=== PATIENT | female | born 1955 | race Caucasian/White ===

== ENCOUNTER 2020-05-10 13:04 | Outpatient (CLI) | payer OTHER, SELFPAY ==
--- NOTE | ~2020-05-10 | DEXA_ITS ---
Bone Density Report Name: Lea López Age: 65 Sex: Female Ethnicity: White Date of : 1955 Indication: postmenopausal; prior fracture; Referring Provider: Juve, Anil Maldonado Study: Bone densitometry was performed. Exam Date: May 10, 2020 Accession number: [id number] Bone Density: Region BMD T-score Z-score Classification AP Spine (L1-L4) 0.845 -1.8 -0.2 Osteopenia Femoral Neck (Left) 0.629 -2.0 -0.6 Osteopenia Total Hip (Left) 0.707 -1.9 -0.8 Osteopenia Total Hip Bilateral Avg 0.715 -1.9 -0.8 Osteopenia Femoral Neck (Right) 0.651 -1.8 -0.4 Osteopenia Total Hip (Right) 0.721 -1.8 -0.7 Osteopenia World Health Organization criteria for BMD impression classify patients as: Normal (T-score at or above -1.0), Osteopenia (T-score between -1.0 and -2.5), or Osteoporosis (T-score at or below -2.5). 10-year Fracture Risk(1): Major Osteoporotic Fracture 16% Hip Fracture 2.2% Reported Risk Factors: [place] (), Neck BMD=0.629, BMI=22.4, previous fracture (1) FRAX(R) Version 3.08. Fracture probability calculated for an untreated patient. Fracture probability may be lower if the patient has received treatment. Clinical Information Provided by Patient: Has had a low trauma fracture Has used the following medications: Vitamin D, Calcium Patient maximum height was 67 Menopause Age: 50 Drinks caffeinated beverages Onset of menses at age 12 Number of children 2 Impression: The patient has low bone mass, based on the Left Femoral Neck T-score. The patient has an estimated ten-year risk of hip fracture of 2.2% and an estimated ten-year risk of major fracture of 16%, based on the WHO FRAX algorithm. The patient has risk factors, including: previous fracture. Discussion: BONE DENSITY IS LOW AT ONE OR MORE SKELETAL SITES. This patient's lowest T-score is low at one or more skeletal sites. It meets the World Health Organization's (WHO) criteria for ?low bone mass? (T-score between -1.0 and -2.5). The patient's 10-year risk of fracture as calculated by FRAX is less than the threshold where pharmacological therapy is recommended by the National Osteoporosis Foundation (NOF). However, all treatment decisions require clinical judgment and consideration of individual patient factors, including patient preferences, comorbidities, previous drug use, risk factors not captured in the FRAX model (e.g., frailty, falls, vitamin D deficiency, increased bone turnover, interval significant decline in bone density) and possible under or overestimation of fracture risk by FRAX. The patient should follow a healthful lifestyle (good nutrition with adequate calcium and vitamin D, and appropriate weight-bearing exercise). Follow-Up: Consider repeating this study in 2 to 3 years to reassess this patient's status, or sooner if the
== END 2020-05-10 13:05 | disposition home or self-care (01) ==
LOC: ANHIMG 13:07
PROVIDERS: PCP Internal Medicine; Visit Provider Nurse Practitioner Women's Health
DX: Z78.0 Asymptomatic menopausal state (principal); M85.88 Other specified disorders of bone density and structure, other site; M85.852 Other specified disorders of bone density and structure, left thigh; M85.851 Other specified disorders of bone density and structure, right thigh
CPT/HCPCS: 77080

== ENCOUNTER 2020-11-01 08:00 | Outpatient (RCR) | payer OTHER, SELFPAY ==
--- NOTE | 2020-09-21 17:26 | PTOPEVAL ---
INITIAL PHYSICAL THERAPY EVALUATION and PLAN OF CARE Thank you for referring Lea López to [facility].? Lea is scheduled to be seen for physical therapy? 1-2x/week for 6 weeks. Please review, sign, date and return this plan of care LEAH. I agree with and certify that the following plan of care is medically necessary. Referring Physician Date Admitting Provider: Attending Provider: Lonnie Vazquez MD Referring Provider: *PT Outpatient Evaluation Start: 09/21/20 14:08 Freq: Status: Active Protocol: Document 09/21/20 14:05 NARGIS (Rec: 09/21/20 15:24 NARGIS [email or web address]) Therapy Assessment Status Assessment Status Assessment Status Evaluation Outpatient Past Medical History Past Medical History Source of Past Medical History Patient Neurological History Hx Neurological Disorders No Significant History Cardiovascular History Hx Cardiac Disorders No Significant History Respiratory History Hx Respiratory Disorders No Significant History Gastrointestinal History Hx Gastrointestinal Disorders No Significant History Genitourinary History Hx Genitourinary Disorders No Significant History Musculoskeletal History Hx Arthritis Yes: generalized Hx Orthopedic Surgery Yes: L patellar fracture - ORIF Hx Other Musculoskeletal Disorders Yes: heel spurs, sees chiropractor Endocrine History Hx Endocrine Disorders No Significant History Evaluation Information Problem Diagnosis R posterior tibialis dysfunction Onset 07/10/2020 Subjective Information Went on a trip to [facility] [place] Query Text:As Reported By Patient/ [place] - put sandals on - Family increased pain that evening - decreased ability to put weight on R foot. When saw PCP - received injection into buttock - initially felt better. Initially thought pain was due to gout - approached care that way - testing, diet, etc - then found out different diagnosis. Still watching diet. Initial wt bearing in mornings - painful - then will have a period of decreased discomfort - but pain worsens as day goes on. Wearing brace for R foot/ankle Diagnostic Tests X-Rays For This Problem Yes Prior Level of Function Activity Level (Last 3 Months) Occupation
--- NOTE | 2020-11-01 12:25 | PTOPEVAL ---
PHYSICAL THERAPY DISCHARGE SUMMARY Thank you for referring Lea López to [facility] [place].? Lea was seen x 7 visits. ROM, strength, and functional goals were met, pain levels at times are still elevated. Her HEP was reviewed today and she is to continue with it as well as use of ice and elevation to R posterior tibialis tendon when increase in inflammation and pain are present. She is ready for d/c from PT to HEP. I agree with Lea's discharge. Referring Physician Date Admitting Provider: Attending Provider: Lonnie Vazquez MD Referring Provider: Therapy Assessment Status Assessment Status Assessment Status Discharge Evaluation Information Problem Diagnosis R posterior tibialis dysfunction Subjective Information Lea has received orthotics - Query Text:As Reported By Patient/ now able to tolerate orthotics Family most of the day now. Having some difficulty finding different shoes to accommodate the orthotics. Doing well with HEP and using ice, elevation. Did yard work yesterday - good 3 hours - some soreness last evening - did use ice, elevation and ibuprofen. Pain Assessment Timing of Pain Assessment Timing of Pain Assessment Assessment Pain Scale Pain Scale Used Numeric (1 - 10) Self Report Pain Assessment Right Ankle(s) Reported Pain Level 2 Pain Description Burning,Tingling Lowest Pain Intensity 0 Greatest Pain Intensity 8 Pain Score Pain Score 2: Self Report Interventions Used Interventions Used By Clinicians Exercise Lower Extremity Range of Motion Ankle/Foot Range of Motion Right Ankle Dorsiflexion With Knee Extension 10 Range of Motion - Active Ankle Dorsiflexion With Knee Flexed 15 Range of Motion - Active Ankle Plantarflexion Range of Motion - 52 Active Query Text: Ankle Eversion Range of Motion - Active 30 Ankle Inversion Range of Motion - Active 40 Lower Extremity Muscle Strength Testing Ankle Strength Right Ankle Plantarflexion Strength 4+ Good + Toe Strength Comments anterior tibialis 5 posterior tibialis 5 peroneals - longus 5 brevis 5 PT Clinical Summary Clinical Summary Protocol: PTEVCODE PT Clinical Summary Foot and Ankle Ability Measure - 85% Lea has made ROM, strength, and functional gains with R foot/ankle complex. Pain
== END 2020-11-02 15:55 | disposition home or self-care (01) ==
LOC: ANHHIPT 08:00
PROVIDERS: PCP Internal Medicine; Visit Provider Orthopaedic Surgery
DX: M76.821 Posterior tibial tendinitis, right leg (principal)
CPT/HCPCS: 97035; 97110; 97140; 97161

== ENCOUNTER 2022-01-31 08:07 | Outpatient (CLI) | payer MEDICARE, OTHER, SELFPAY ==
--- NOTE | 2022-02-26 14:30 | WPDSLEEPSTUD ---
Sleep Study Date of Study: 01/31/22 Ordering Provider: Malissa Freedman DO Interpreting Physician: Malissa Freedman DO Sleep Study Type: Polysomnogram Height: 1.7 m Weight: 63.503 kg Body Mass Index: 21.9 Neck Circumference (inches): 13 [place]: 7 Reason for Sleep Study Insomnia Sleep History The patient is a 67-year-old female with seasonal allergies and insomnia that had a sleep study ordered by her primary care physician for evaluation of insomnia. The patient is currently retired. She states that she is able to fall asleep but will wake up in the middle of the night to use the restroom and will be unable to fall back asleep. She has unrefreshing sleep. The patient denies awakening from sleep short of breath. She rarely awakens at night with heartburn, belching or cough. She rarely snores and is never loud enough that others complain. She frequently has trouble sleeping when she has a cold. She denies waking up gasping for air throughout the night. She denies having breathing problems at night observed by herself or others. She denies sweating excessively at night. She denies having heart palpitations or irregular heartbeats during the night. She occasionally falls asleep during the day but never while driving. She denies sleep paralysis, cataplexy and hypnagogic / hypnopompic hallucinations. She rarely has trouble at school or work due to sleepiness. She denies feeling afraid of going to sleep. She denies having nightmares. She rarely remembers her dreams. She occasionally has thoughts racing through her mind. She rarely feels sad or depressed. She occasionally has anxiety. She denies having muscular tension. She denies noticing parts of her body jerk. She denies kicking during the night. She denies having crawling and aching feelings in her legs as well as leg pain during the night. She frequently grinds her teeth during sleep and occasionally awakens with morning jaw pain. She is occasionally bothered by pain during the day but rarely awakened by pain during the night. She occasionally wakes up feeling stiff in the morning. She denies waking up with sore achy muscles. She occasionally wakes up with pain in the neck, spine and other joints. She goes to bed at 9:30 p.m. on both weekdays and weekends. It takes her 10 minutes to fall asleep. She wakes up 1-2 times throughout the night for unknown reasons. When she awakens, she will do is lay in bed. It could take her up to 2 hours to fall back asleep. She wakes up at 7:00 a.m. on both weekdays and weekends. She typically gets 6-7 hours of sleep per night. She will stay in bed for 10 minutes after waking up in the morning. She currently lives with her . She does not consume any caffeinated beverages within 2 hours of bedtime. She does not engage in physical exercise before bedtime. She will sometimes read before falling asleep. She will watch television before falling asleep. She will occasionally take a nap in the afternoon. She drinks 20 oz of caffeinated beverage per day. She will drink 1 alcoholic beverage per day. She denies tobacco and recreational drug use. [facility] Past Medical History Medical History Allergies Anxiety Arthritis History of patellar fracture History of wrist fracture Insomnia Pes planovalgus, acquired Posterior tibial tendinitis of right lower extremity Urinary frequency Wears glasses Surgical History Surgical History History of 2 Family History Family History Mother Family history of obesity Diabetes mellitus Hypertension Depression Heart disease Father Family history of malignant neoplasm Patient's father is Alcoholism Sibling Alcoholism Depression Other Arthritis Social History Soc
[2022-02-26 22:59] VITALS: BMI 21.9
== END 2022-02-01 06:25 | disposition home or self-care (01) ==
LOC: ANHCSM 08:08
PROVIDERS: PCP Internal Medicine; Visit Provider Family Medicine
DX: G47.00 Insomnia, unspecified (principal)
CPT/HCPCS: 95810

== ENCOUNTER 2022-08-12 08:10 | Outpatient (CLI) | payer MEDICARE, OTHER, SELFPAY ==
[2022-08-12 19:04] LABS: Alanine Aminotransferase 26 U/L (6-35); Albumin Level 4.3 g/dL (3.5-5.1); Alkaline Phosphatase 73 U/L (38-126); Anion Gap 3 mmol/L (8-16); Aspartate Amino Transferase 49 U/L (14-36); Bilirubin,Total 0.4 mg/dL (0.2-1.3); Blood Urea Nitrogen 23 mg/dL (7-17); Calcium 9.6 mg/dL (8.4-10.2); Carbon Dioxide 32 mmol/L (22-30); Chloride 101 mmol/L (98-107); Cholesterol 196 mg/dL (0-200); Estimated Glomerular Filt Rate > 60; Glucose 82 mg/dL (65-110); HDL Direct 80 mg/dL; Potassium 3.8 mmol/L (3.4-5.0); Sodium 136 mmol/L (137-145); Triglycerides 35 mg/dL (<150)
[2022-08-12 19:07] LABS: Basophils Absolute Auto 0.1 K/mm3 (0.0-0.1); Basophils Percent Auto 1.4 % (0.2-1.2); Eosinophils Absolute Auto 0.2 K/mm3 (0-0.3); Eosinophils Percent Auto 4.6 % (0-4.4); Hematocrit 41.7 % (37.0-47.0); Hemoglobin 13.6 g/dL (12.0-15.0); Lymphocytes Absolute Auto 1.79 K/mm3 (0.9-3.2); Lymphocytes Percent Auto 42.9 % (18.3-44.2); Mean Corpuscular HGB Conc 32.6 g/dl (32-36); Mean Corpuscular Hemoglobin 30.5 pg (26-34); Mean Corpuscular Volume 93.5 fl (80-100); Mean Platelet Volume 10.8 fl (7.4-10.4); Monocytes Absolute Auto 0.3 K/mm3 (0.1-0.6); Monocytes Percent Auto 7.7 % (2.6-8.5); Neutrophils Absolute Auto 1.8 K/mm3 (1.3-6.7); Neutrophils Percent Auto 43.4 % (45.5-73.1); Platelet Count Result 206 k/mm3 (150-375); Red Blood Count 4.46 M/mm3 (4.2-5.4); Red Cell Distribution Width 12.3 % (11.5-14.5); White Blood Count 4.2 K/mm3 (4.5-10.0)
[2022-08-12 19:13] LABS: Hemoglobin A1C 5.2 % (<5.7)
[2022-08-12 19:15] LABS: LDL Cholesterol Direct 75 mg/dL
[2022-08-12 19:32] LABS: Free T4 Free Thyroxine 1.17 ng/mL (0.78-2.19); Vitamin D 25 Hydroxy 75.7 ng/mL
== END 2022-08-12 08:11 | disposition home or self-care (01) ==
LOC: ANHGOSHLAB 08:14
PROVIDERS: PCP Internal Medicine; Visit Provider Family Medicine
DX: R53.83 Other fatigue (principal); E55.9 Vitamin D deficiency, unspecified; R73.9 Hyperglycemia, unspecified; E78.5 Hyperlipidemia, unspecified
CPT/HCPCS: 36415; 80053; 80061; 82306; 83036; 84439; 84443; 85025

== ENCOUNTER 2023-02-14 13:20 | Outpatient (CLI) | payer MEDICARE, OTHER, SELFPAY ==
--- NOTE | ~2023-02-14 | CT_ITS ---
CT of the Abdomen and Pelvis: Indication: Gastroenteritis and colitis Technique: 2.5 mm axial scans were obtained through the abdomen and pelvis following intravenous adm inistration of 100 cc of Omnipaque 350. Dose reduction technique was used on this scan by utilizing a utomated exposure control and iterative reconstruction technique. The dose-length product (DLP) was 3 90.98 mGy-cm. Findings: Scans through the lung bases are unremarkable. Several scattered subcentimeter hepatic cysts are present. The spleen, pancreas, gallbladder, adrenal s and kidneys are within normal limits. No evidence of aortic aneurysm. No lymphadenopathy. There is wall thickening with adjacent inflammatory change at the mid to distal sigmoid colon. No abs cess or free air evident. Images through the pelvis were performed. Urinary bladder unremarkable. No adnexal mass seen. No asci kristina. Impression: Acute diverticulitis of the mid to distal sigmoid colon versus other infectious/inflammatory colitis. No abscess or free air. Reviewed, dictated and finalized at [facility]. Impression: Acute diverticulitis of the mid to distal sigmoid colon versus other infectious /inflammatory colitis. No abscess or free air.
[2023-02-14 13:51] LABS: Estimated Glomerular Filt Rate > 60
== END 2023-02-14 13:21 | disposition home or self-care (01) ==
PROVIDERS: PCP Internal Medicine; Visit Provider Nurse Practitioner
DX: K57.32 Diverticulitis of large intestine without perforation or abscess without bleeding (principal)
CPT/HCPCS: 74177; Q9967

== ENCOUNTER 2023-04-01 00:18 | Day surgery (SDC) | payer MEDICARE, OTHER, SELFPAY ==
[2023-03-21 15:11] VITALS: BMI 22.8
[2023-04-01 06:23] VITALS: BP 124/92; PULSE 62; RESP 18; TEMP 36.1; O2SAT 98
[2023-04-01] MEDS: LACTATED RINGERS 1,000 ML 150 ML IV CONT (06:35)
--- NOTE | 2023-04-01 07:02 | WPDANESEPPF ---
Anes - Initial Pre Proc Eval Procedure: Operation Date: 04/01/23 07:30 Proposed Procedures p Esophagogastroduodenoscopy & Colonoscopy - Vicente Vidal MD Date/Time: 04/01/23 07:02 Surgeon: Vicente Vidal MD Pre Op Diagnosis: chronic cough, dysphonia, abdominal pain, Patient Data Age: 68 Gender: F Height: 1.7 m Weight: 61.5 kg Last Vital Signs Temp 36.1 C L 04/01/23 06:23 Pulse 62 04/01/23 06:23 Resp 18 04/01/23 06:23 BP 124/92 H 04/01/23 06:23 Pulse Ox 98 04/01/23 06:23 O2 Del Method Room Air 04/01/23 06:23 Allergies Allergy/AdvReac Type Severity Reaction Status Date / Time morphine Allergy Mild Swelling Verified 04/01/23 06:22 Home Medications Medication Instructions Recorded Confirmed Type multivitamin 1 tablet PO DAILY 09/18/20 03/21/23 History cetirizine 10 mg tablet (Zyrtec) 10 mg PO DAILY PRN Allergy Symptoms 10/10/21 03/21/23 History lactobacillus combination no.9 4 4,000 mmu cells PO DAILY 10/10/21 03/21/23 History billion cell capsule (Adult 50 Plus Probiotic) sodium,potassium,mag sulfates 17.5 See Rx Instructions PO .COMPLEX 02/10/23 Rx gram-3.13 gram-1.6 gram oral soln #354 mL (Suprep Bowel Prep Kit) cholecalciferol (vitamin D3) 25 25 mcg PO DAILY 03/21/23 03/21/23 History mcg (1,000 unit) chewable tablet (Vitamin D3) pyridoxine (vitamin B6) 100 mg 100 mg PO DAILY 03/21/23 03/21/23 History tablet Patient hx anesthesia problems: none Family hx anesthesia problems: none Results Review: All pre-operative results and documents have been reviewed as part of the pre-operative evaluation. [facility] Past Medical History Medical History Abdominal cramping Allergies Anxiety Arthritis Change in bowel habits Chronic cough Chronic diarrhea Dysphonia History of patellar fracture History of wrist fracture Insomnia Osteopenia Pes planovalgus, acquired Posterior tibial tendinitis of right lower extremity Urinary frequency Wears glasses Surgical History Surgical History History of 2 Family History Family History Mother Family history of obesity Diabetes mellitus Hypertension Depression Heart disease Father Family history of malignant neoplasm Patient's father is Alcoholism Sibling Alcoholism Depression Other Arthritis Social History Social History Smoking status: Never smoker Alcohol intake: current Drinks per week: 7 Substance use type: does not use Lack of Transportation: No Lack of Food: Never True Current Housing: I Have Housing Concerned About Future Housing: No Difficulty Paying Gas/Electric Bills: No Difficulty Paying for Meds: No Currently Unemployed: No Education: Trade/Vocational Certificate Difficulty w/ Childcare or Family Care: No Living arrangements: with family Spiritual care concerns: No Anes - Eval Final PreProcedure Day of Procedure 04/01/23 07:02 Patient weight: normal Heart: regular rate and rhythm Lungs: clear to auscultation Airway: Mallampati scale class II Neurological: alert and oriented Last oral intake: >/= 8 hours ASA classification: II Emergent: no Anesthetic plan: proceed Anesthesia type and monitoring: general GIVS and standard monitoring Results Review: All pre-operative results and documents have been reviewed as part of the pre-operative evaluation. Informed Consent: The patient's anesthetic plan and its attendant risks and benefits were discussed with the patient/family/POA. Questions were solicited and answers provided to the satisfaction of the patient/family/POA.
--- NOTE | 2023-04-01 07:43 | PM.HPGS ---
History of Present Illness History of Present Illness Consent: Risks, benefits, and alternatives have been discussed and questions answered. Patient agrees to proceed with procedure. Chief complaint: chronic cough, dysphonia, abdominal pain, Narrative: Lea López is a 68 year old female Presents for both colonoscopy and EGD. Patient reports she has had a mild intermittent chronic cough off and on for many years. Sometimes it will affect her voice. Patient denies any heartburn. She has no dysphagia. Patient is referred for an EGD. Additionally patient has had 2 episodes of cramping 1 early in year in 1 recently. She states it was rather intense. She has had intermittent diarrhea with loose stools. She denies any fever. She has had no bleeding. In the past had examinations that showed diverticular disease. A CT scan recently revealed inflammation in the mid sigmoid colon that was unable to differentiate mild colitis versus diverticulitis. Patient was given an empiric trial of antibiotics. She states she no longer has abdominal pain but these cramps come after many months intervals. Patient presents today for colonoscopy to evaluate more thoroughly. She denies any significant abdominal pain at present. Family history is noncontributory. Review of Systems Review of Systems: Review of systems noncontributory. [facility] Past Medical History Medical History Abdominal cramping Allergies Anxiety Arthritis Change in bowel habits Chronic cough Chronic diarrhea Dysphonia History of patellar fracture History of wrist fracture Insomnia Osteopenia Pes planovalgus, acquired Posterior tibial tendinitis of right lower extremity Urinary frequency Wears glasses Surgical History Surgical History History of 2 Family History Family History Mother Family history of obesity Diabetes mellitus Hypertension Depression Heart disease Father Family history of malignant neoplasm Patient's father is Alcoholism Sibling Alcoholism Depression Other Arthritis Social History Social History Smoking status: Never smoker Alcohol intake: current Drinks per week: 7 Substance use type: does not use Lack of Transportation: No Lack of Food: Never True Current Housing: I Have Housing Concerned About Future Housing: No Difficulty Paying Gas/Electric Bills: No Difficulty Paying for Meds: No Currently Unemployed: No Education: Trade/Vocational Certificate Difficulty w/ Childcare or Family Care: No Living arrangements: with family Spiritual care concerns: No Meds Home Medications and Allergies Home Medications Medication Instructions Recorded Confirmed Type multivitamin 1 tablet PO DAILY 09/18/20 03/21/23 History cetirizine 10 mg tablet (Zyrtec) 10 mg PO DAILY PRN Allergy Symptoms 10/10/21 03/21/23 History lactobacillus combination no.9 4 4,000 mmu cells PO DAILY 10/10/21 03/21/23 History billion cell capsule (Adult 50 Plus Probiotic) sodium,potassium,mag sulfates 17.5 See Rx Instructions PO .COMPLEX 02/10/23 Rx gram-3.13 gram-1.6 gram oral soln #354 mL (Suprep Bowel Prep Kit) cholecalciferol (vitamin D3) 25 25 mcg PO DAILY 03/21/23 03/21/23 History mcg (1,000 unit) chewable tablet (Vitamin D3) pyridoxine (vitamin B6) 100 mg 100 mg PO DAILY 03/21/23 03/21/23 History tablet Allergies Allergy/AdvReac Type Severity Reaction Status Date / Time morphine Allergy Mild Swelling Verified 04/01/23 06:22 Vital Signs Vital Signs - 24 hr 04/01/23 06:23 Temperature 97 F L Pulse Rate 62 Respiratory Rate 18 Blood Pressure 124/92 H Pulse Oximetry 98 Oxygen Delivery Room Air Exam Narrativ
--- NOTE | 2023-04-01 07:49 | SUR.OPER ---
EGD: Start 07:40, End 07:42 Colon: Start 07:49, End 08:10
[2023-04-01] MEDS: SIMETHICONE ORAL SUSPENSION 20 MG/0.3 ML 30 ML BOTTLE 0.6 ML IRRIGATION (07:57)
[2023-04-01 08:12] VITALS: BP 100/64; PULSE 62; RESP 17; O2SAT 98
[2023-04-01 08:22] VITALS: BP 113/77; PULSE 60; RESP 20; O2SAT 100
[2023-04-01 08:32] VITALS: BP 124/78; PULSE 50; RESP 22; O2SAT 97
== END 2023-04-01 08:47 | disposition home or self-care (01) ==
PROVIDERS: PCP Internal Medicine; Visit Provider Internal Medicine Gastroenterology
PROC: 0DJ08ZZ Inspection of Upper Intestinal Tract, Via Natural or Artificial Opening Endoscopic (ICD-10-PCS; CPT 43235; principal; 2023-04-01 07:30)
DX: Z12.11 Encounter for screening for malignant neoplasm of colon (principal); K64.8 Other hemorrhoids; K57.30 Diverticulosis of large intestine without perforation or abscess without bleeding; R05.9 Cough, unspecified; R49.0 Dysphonia
CPT/HCPCS: 45380; 43235; 88305; J2704; J7120

== ENCOUNTER 2023-04-15 09:45 | Outpatient (CLI) | payer MEDICARE, OTHER, SELFPAY ==
--- NOTE | ~2023-04-15 | DEXA_ITS ---
Bone Density Report Name: SCOTT PICHARDO Age: 68 Sex: Female Ethnicity: White Date of : 1955 Indication: osteopenia; inflammatory bowel disease; prior fracture; postmenopausal Referring Provider: JACKSON RENEE Study: Bone densitometry was performed. Exam Date: April 15, 2023 Accession number: [id number] Bone Density: Region BMD T-score Z-score Classification AP Spine(L1-L4) 0.798 -2.3 -0.4 Osteopenia Femoral Neck (Left) 0.600 -2.2 -0.7 Osteopenia Total Hip (Left) 0.646 -2.4 -1.1 Osteopenia Femoral Neck (Right) 0.639 -1.9 -0.3 Osteopenia Total Hip (Right) 0.702 -2.0 -0.7 Osteopenia Total Hip Mean 0.674 -2.2 -0.9 Osteopenia World Health Organization criteria for BMD impression classify patients as: Normal (T-score at or above -1.0), Osteopenia (T-score between -1.0 and -2.5), or Osteoporosis (T-score at or below -2.5). 10-year Fracture Risk(1): Major Osteoporotic Fracture 18% Hip Fracture 3.2% Reported Risk Factors: [place] (), Neck BMD=0.600, BMI=22.3, previous fracture (1) FRAX(R) Version 3.08. Fracture probability calculated for an untreated patient. Fracture probability may be lower if the patient has received treatment. Previous Exams: Region Exam Age BMD T-score BMD Change BMD Change Date g/cm2 vs Baseline vs Previous AP Spine (L1-L4) 04/15/2023 68 0.798 -2.3 -0.047 (-5.6%) -0.047 (-5.6%) 05/10/2020 65 0.845 -1.8 Total Hip(Left) 04/15/2023 68 0.646 -2.4 -0.061 (-8.6%) -0.061 (-8.6%) 05/10/2020 65 0.707 -1.9 Total Hip(Right) 04/15/2023 68 0.702 -2.0 -0.020 (-2.8%) -0.020 (-2.8%) 05/10/2020 65 0.721 -1.8 *Denotes significance at 95% confidence level, LSC for AP Spine = 0.022 g/cm2, LSC for Total Hip = 0.027 g/cm2 Clinical Information Provided by Patient: Has had a low trauma fracture Has used the following medications: Vitamin D, Calcium Has the following medical conditions: Inflammatory bowel diseases Patient maximum height was 67 Menopause Age: 50 Drinks caffeinated beverages Onset of menses at age 12 Number of children 2 Impression: The patient has low bone mass, based on the Left Total Hip T-score. The patient has an estimated ten-year risk of hip fracture of 3.2% and an estimated ten-year risk of major fracture of 18%, based on the WHO FRAX algorithm. The patient has risk factors, including: previous fracture. The BMD for the AP Spine (L1-L4) decreased, changing by -5.6%
== END 2023-04-15 09:46 | disposition home or self-care (01) ==
PROVIDERS: PCP Internal Medicine; Visit Provider Nurse Practitioner
DX: Z78.0 Asymptomatic menopausal state (principal); M85.88 Other specified disorders of bone density and structure, other site; M85.852 Other specified disorders of bone density and structure, left thigh; M85.851 Other specified disorders of bone density and structure, right thigh
CPT/HCPCS: 77080

== ENCOUNTER 2024-03-04 09:26 | Outpatient (CLI) | payer MEDICARE, OTHER, SELFPAY ==
--- NOTE | ~2024-03-04 | XR_ITS ---
Clinical Indication: Chronic cough PA and lateral views of the chest: Comparison: None Findings: The lungs are clear, without evidence of focal consolidation or pleural effusion. Cardiome diastinal silhouette is within normal limits. Bones and soft tissues are unremarkable. Impression: Normal chest. Reviewed, dictated and finalized at location . Impression: Normal chest.
== END 2024-03-04 09:27 ==
PROVIDERS: PCP Nurse Practitioner; Visit Provider Allergy & Immunology
DX: R05.9 Cough, unspecified (principal)
CPT/HCPCS: 71046

== ENCOUNTER 2024-08-12 09:11 | Emergency (ER) | payer MEDICARE, OTHER, SELFPAY ==
[2024-08-12 09:27] VITALS: BP 161/77; PULSE 67; RESP 18; TEMP 36.8; O2SAT 97
--- NOTE | 2024-08-12 09:45 | ED_ITS ---
HPI - Wound/Laceration General Chief Complaint: Wound/Laceration Stated Complaint: LT Eyebrow Cut Time Seen by Provider: 08/12/24 10:09 Source: patient, RN notes reviewed and old records reviewed Mode of arrival: ambulatory Limitations: no limitations History of Present Illness HPI narrative: Patient presents with complaints of laceration just above the left eyebrow. She reports that she was putting some dishes away today just prior to arrival, the shelf came loose, a plate fell and hit her. She denies any loss of consciousness. She denies other injury and trauma. Last tetanus 2021. Bleeding controlled upon arrival. Patient with no other concerns or complaints today Related Data Home Medications ?Medication ?Instructions ?Recorded ?Confirmed ?Last Taken ?Type lactobacillus combination no.9 4 4,000 mmu cells PO DAILY 10/10/21 05/19/24 Unknown History billion cell capsule (Adult 50 Plus Probiotic) cholecalciferol (vitamin D3) 25 25 mcg PO DAILY 03/21/23 05/19/24 Unknown History mcg (1,000 unit) chewable tablet (Vitamin D3) pyridoxine (vitamin B6) 100 mg 100 mg PO DAILY 03/21/23 05/19/24 Unknown History tablet ginkgo biloba 40 mg tablet 40 mg PO DAILY 09/10/23 05/19/24 Unknown History Calcium PO 05/19/24 05/19/24 Unknown History fluticasone propionate 50 2 spray intranasal DAILY 05/19/24 05/19/24 Unknown History mcg/actuation nasal spray,suspension magnesium PO 05/19/24 05/19/24 Unknown History Allergies Allergy/AdvReac Type Severity Reaction Status Date / Time morphine Allergy Mild Swelling Verified 08/12/24 10:54 Review of Systems 2 Review of Systems: All systems reviewed & are unremarkable except as noted in HPI and below Constitutional: Constitutional: Reports no additional constitutional complaints ENT: Reports system reviewed and no additional complaints, except as documented Cardiovascular: Cardiovascular: Reports no additional cardiovascular complaints Respiratory: Respiratory: Reports no additional respiratory complaints Gastrointestinal: Gastrointestinal: Reports no additional gastrointestinal complaints Integumentary/Breasts: Skin/Breast: Reports wounds (left brow) PMFSH Past Medical History Medical History Abdominal cramping Allergies Anxiety Arthritis Change in bowel habits Chronic cough Chronic diarrhea Dysphonia History of patellar fracture History of wrist fracture Insomnia Osteopenia Pes planovalgus, acquired Posterior tibial tendinitis of right lower extremity Urinary frequency Wears glasses Surgical History Surgical History History of 2 Family History Family History Mother Family history of obesity Diabetes mellitus Hypertension Depression Heart disease Father Family history of malignant neoplasm Patient's father is Alcoholism Sibling Alcoholism Depression Other Arthritis Social History Social History (Updated 05/19/24 @ 08:34 by Taya Gipson) Social History: Caffeine-tea Smoking status: Never smoker Alcohol intake: current Drinks per week: 7 Alcohol use details: beer Substance use: current Substance use type: marijuana Other substance usage details: edible mints Do You Feel Safe in your Home?: Yes Living arrangements: with family Spiritual care concerns: No Comments At the time of my signature, I reviewed and agree with the nursing past medical, surgical, social, and family history. There is no relevant family history pertinent to the patient complaint. Exam 2 Const: General: cooperative, no acute distress, alert and awake O rientation/consciousness: oriented to person, oriented to place and oriented to time HENMT: Head: laceration Head images: 1. 2 cm linear laceration, superficial Resp: Effort & Inspection: normal respiratory effort and able to speak in complete sentences Auscultation: clear to auscultation bilaterally, no crackles, no rales, no rhonchi and no wheezes Cardio: Palpation: normal PMI Rate: regular rate Rhythm: regular rhythm Heart sounds: S1 normal heart sound present and S2 normal heart sound present Neuro: General: oriented to person, oriented to place and oriented to time Cranial nerves: Yes CN's II-XII intact bilaterally Psych: Appearance: grossly normal Thought process: Normal thought process present Insight: Good insight present (Psych) Judgement: Good judgement present (Psych) Course Course Level of Care: Express Care Visit Vital Signs Vital signs: Vital Signs Temperature 98.3 F 08/12/24 09:27 Pulse Rate 67 08/12/24 09:27 Respiratory Rate 18 08/12/24 09:27 Blood Pressure 161/77 H 08/12/24 09:27 Pulse Oximetry 97 08/12/24 09:27 Oxygen Delivery Room Air 08/12/24 09:27 Temperature 98.3 F 08/12/24 09:27 Pulse Rate 67 08/12/24 09:27 Respiratory Rate 18 08/12/24 09:27 Blood Pressure 161/77 H 08/12/24 09:27 Pulse Oximetry 97 08/12/24 09:27 Oxygen Delivery Room Air 08/12/24 09:27 Reviewed Procedures Laceration Laceration 1: Date: 08/12/24 Time: 10:20 Site: face Side (If applicable): left Size (cm): 2 Description: linear and clean Depth: simple, single layer Pre-repair: irrigated ====== Skin Level ====== Skin layer closed with: dermabond and steri strips ====== Subcutaneous Layer ====== ====== Muscle Layer ====== ====== Tendon Layer ====== MDM - Wound/Laceration MDM Narrative Medical decision making narrative: 2 cm laceration to left eyebrow, easily repaired with Dermabond and Steri- Strips. No other injuries. No loss of consciousness. Discharge instructions reviewed with patient, as well as provided in writing per nursing staff. The instructions also include specific and strict return/GO TO THE ER as well as f/u information. All questions have been answered, and the patient deny any further questions with discharge and discharge plan. Some parts of this dictation were generated by voice recognition software and may contain typographical and/or grammatical inaccuracies. Differential Diagnosis Differential diagnosis: Likely laceration and abrasion Medical Records Attestation: I reviewed the patient's medical records. Discharge Plan Discharge Clinical Impression: Laceration Patient Disposition: Home, Self-Care Condition: Stable Instructions: Antibiotic Form, Skin Adhesive Care (ED), Steristrips (ED) Patient Language: Croatian Prescriptions: No Action Adult 50 Plus Probiotic 4 billion cell capsule 4,000 mmu cells PO DAILY Rx Instructions: administer with a meal Calcium PO Rx Instructions: 1200mg daily magnesium PO fluticasone propionate 50 mcg/actuation spray,suspension 2 spray intranasal DAILY Rx Instructions: administer into each nostril ginkgo biloba 40 mg tablet 40 mg PO DAILY Rx Instructions: give with meal/snack pyridoxine (vitamin B6) 100 mg Tablet 100 mg PO DAILY cholecalciferol (vitamin D3) [Vitamin D3] 25 mcg (1,000 unit) Tablet,Chewable 25 mcg PO DAILY buspirone 10 mg tablet 10 mg PO TID Qty: 60 0RF Follow-up/Referrals: Leena Yancey SALES PROMOTION DIRECTOR [Primary Care Provider] - 2 Weeks Time of Disposition: 10:34
== END 2024-08-12 10:39 | disposition home or self-care (01) ==
PROVIDERS: Emergency Provider Nurse Practitioner Family; PCP Nurse Practitioner
DX: S01.112A Laceration without foreign body of left eyelid and periocular area, initial encounter (principal); W20.8XXA Other cause of strike by thrown, projected or falling object, initial encounter; F12.90 Cannabis use, unspecified, uncomplicated; M19.90 Unspecified osteoarthritis, unspecified site; M85.80 Other specified disorders of bone density and structure, unspecified site
CPT/HCPCS: 12001; 99212; G0463

== ENCOUNTER 2024-08-26 07:15 | Outpatient (CLI) | payer MEDICARE, OTHER, SELFPAY ==
--- NOTE | ~2024-08-26 | XR_ITS ---
EXAMINATION: XR foot LT min 3V DATE: 08/26/2024 07:42 INDICATION: Left third toe fracture. TECHNIQUE: 4 views of left foot were obtained. COMPARISON: None. FINDINGS: There is an oblique fracture of diaphysis of third proximal phalanx. The distal fracture fr agment demonstrates 2 mm lateral displacement and 2 mm shortening. There is mild osteoarthritis of fi rst metatarsophalangeal joint and some of the midfoot joints and interphalangeal joints. There is an enthesophyte at plantar aspect of calcaneal tuberosity. IMPRESSION: 1. Oblique fracture of diaphysis of third proximal phalanx. Reviewed, dictated and finalized at location [] IMPROVEMENT CONTRACTOR
== END 2024-08-26 07:16 | disposition home or self-care (01) ==
LOC: CHSIMG 07:19
PROVIDERS: PCP Nurse Practitioner
DX: S92.512A Displaced fracture of proximal phalanx of left lesser toe(s), initial encounter for closed fracture (principal)
CPT/HCPCS: 73630

== ENCOUNTER 2025-01-07 11:44 | Outpatient (CLI) | payer MEDICARE, OTHER, SELFPAY ==
--- OUTSIDE RECORDS SUMMARY | 2025-01-07 11:49 | XMS_ITS | Clinical Summary ---
Author Organization [facility] Address [address] [place] [id number] Care Team Providers Care Hooker Up Name Role Phone Jodi Sada MCKEON Primary Care Provider [phone] Encounters Date Type Department Care Team Description 11/04/2024 2:45 PM CDT - 11/04/2024 11:59 PM CDT Hospital Encounter [facility] [address] [place] [address] Clay Guerra MD Discharge Disposition: Home or Self Care (Routine Discharge) 11/04/2024 Travel from Last 3 Months Social History Tobacco Use Types Packs/Day Years Used Date Smoking Tobacco: Never Assessed Sex and Gender Information Value Date Recorded Sex Assigned at Male 11/04/2024 2:41 PM CDT Legal Sex Female 6:27 PM CDT Gender Identity Not on file Sexual Orientation Not on file Last Filed Vital Signs Vital Sign Reading Time Taken Comments Blood Pressure 122/70 05/19/2013 7:37 AM CDT Pulse 70 05/19/2013 7:37 AM CDT Temperature - - Respiratory Rate - - Oxygen Saturation - - Inhaled Oxygen Concentration - - Weight 62.1 kg (137 lb) 05/19/2013 7:37 AM CDT Height 170.2 cm (5' 7 ) 05/19/2013 7:37 AM CDT Body Mass Index 21.46 05/19/2013 7:37 AM CDT Plan of Treatment Health Maintenance Due Date Last Done Comments Colorectal Cancer Screening Colonoscopy (10 Years) 1957 Hepatitis C 1975 Annual Medicare Wellness Visit 2022 COVID-19 Vaccine (4 - 2023-2 5 season) 2024 07/05/2021, 11/17/2020, 10/20/2020 RSV Immunization or 60+ Years (1 - 1-dose 75+ series) 02/10/2032 DTaP, Tdap and Td Vaccines ( 2 - Td or Tdap) 05/21/2032 05/21/2022 Pneumococcal Vaccine: 50+ Years Completed 04/13/2022 Zoster Vaccines Completed 09/08/2022, 04/13/2022 Meningococcal B Vaccine Aged Out No l onger eligible based on patient's age to complete this topic Meningococcal Vaccine Aged Out No alexis january eligible based on patient's age to complete this topic RSV Immunizations Under 20 Months Aged Out No longer eligible b ased on patient's age to complete this topic Procedures Procedure Name Priority Date/Time Associated Diagnosis Comments CT HEART SCREEN CALCIUM SCORE PROMO Routine 11/04/2024 2:59 PM CDT Visit for screening from Last 3 Months Results * CT HEART SCREEN CALCIUM SCORE PROMO (11/04/2024 2:59 PM CDT) Anatomical Region Laterality Modality Chest Computed Tomogra phy 11/04/2024 3:03 PM CDT Impressions 11/04/2024 3:04 PM CDT =====IMPRESSION:===== Total Score: 16.7 Mild plaque, moderate risk, low likelihood of significant stenosis (<50%). Ordered By: CLAY GUERRA Interpreted By: Nito Singleton MD, 11/04/2024 3:03 PM Narrative 11/04/2024 3:04 PM CDT [address] [address] EXAMINATION: Multislice Helical CT Coronary Calcium Scoring REASON FOR EXAM: Screening for heart disease COMPARISON: None TECHNIQUE: Multislice helical CT images of the proximal coronary arteries with a computer generated calcification score. A dose lowering technique was used for this procedure, which may include, but is not limited to, dose reduction technique, automated exposure control, iterative reconstruction, ALARA (As Low As Reasonably Achievable), or Image Gently techniques. Results: Left main: 0 LAD: 16.7 Circumflex: 0 Right coronary: 0 Total Score: 16.7 Comments: There is no mediastinal adenopathy, and there are no pulmonary nodules in the visualized portions of the chest. Calcium score guidelines: Total Score* Calcium Plaque Langston *Risk *Probability of significant CAD 0 No Plaque Very Low Very unlikely 1-10 Minimal Plaque Low Unlikely 11-100 Mild Plaque Moderate Low likelihood of significant stenosis <50% 101-400 Moderate Plaque Moderately High Moderate likelihood of significant stenosis (>50%) Over 400 Extensive Plaque High High likelihood of significant stenosis (>50%) The amount of coronary artery calcification correlates with the severity of coronary atherosclerosis and the probability of future significant event. Calcification is not site specific for stenosis and does not identify non-calcified atherosclerotic plaque, but rather indicates the extent of atherosclerosis in the coronary arteries overall. The score may be used as an indicator for risk factor modification or additional cardiac testing. Significant change in calcium score over time may be indicative of subsequent disease development or useful as a benchmark to assess preventative programs. Procedure Note Nito Singleton MD - 11/04/[address] [address] EXAMINATION: Multislice Helical CT Coronary Calcium Scoring REASON FOR EXAM: Screening for heart disease COMPARISON: None TECHNIQUE: Multislice helical CT images of the proximal coronary arterieswith a computer generated calcification score. A dose lowering techniquewas used for this procedure, which may include, but is not limited to,dose reduction technique, automated exposure control, iterativereconstruction, ALARA (As Low As Reasonably Achievable), or Image Gentlytechniques. Results: Left main: 0 LAD: 16.7 Circumflex: 0 Right coronary: 0 Total Score: 16.7 Comments: There is no mediastinal adenopathy, and there are no pulmonarynodules in the visualized portions of the chest. Calcium score guidelines: Total Score* Calcium Plaque Langston *Risk *Probability ofsignificant CAD 0 No Plaque Very LowVery unlikely 1-10 Minimal Plaque LowUnlikely 11-100 Mild Plaque ModerateLow likelihood of significant stenosis <50% 101-400 Moderate Plaque Moderately HighModerate likelihood of significant stenosis (>50%) Over 400 Extensive Plaque HighHigh likelihood of significant stenosis (>50%) The amount of coronary artery calcification correlates with the severityof coronary atherosclerosis and the probability of future significantevent. Calcification is not site specific for stenosis and does notidentify non-calcified atherosclerotic plaque, but rather indicates theextent of atherosclerosis in the coronary arteries overall. The score may be used as an indicator for risk factor modification oradditional cardiac testing. Significant change in calcium score over timemay be indicative of subsequent disease development or useful as abenchmark to assess preventative programs. =====IMPRESSION:===== Total Score: 16.7 Mild plaque, moderate risk, low likelihood ofsignificant stenosis (<50%). Ordered By: CLAY GUERRA Interpreted By: Nito Singleton MD, 11/04/2024 3:03 PM us Clay Guerra MD CT Final Res ult from Last 3 Months Insurance MEDICARE [employer] [place] Care Teams Hooker Up Relationship Specialty Start Date End Date Sada Zapata PA PCP - General PHYSICIAN WASTE WATER TREATMENT PLANT OPERATOR 01/03/21
--- OUTSIDE RECORDS SUMMARY | 2025-01-07 11:49 | XMS_ITS | Referral Summary ---
Author Organization [place] [id number] [facility] Address [address] [place] [address] Care Team Providers Care Painter Touch Up Name Role Phone Malissa Freedman DO Primary Care Provider + Damari Juares MD Unavailable [phone] Allergies Active Allergy Reactions Criticality Noted Date Comments Morphine Swelling Medium 12/28/2020 Medications multivitamin tablet Active cetirizine 10 mg capsule Take by mouth Active ibuprofen (ibuprofen) 200 mg tab/cap Take by mouth every 6 (six) hours as needed for pain Active Active Problems No known active problems Social History Tobacco Use Types Packs/Day Years Used Date Smoking Tobacco: Never Comments Unknown Sex and Gender Information Value Date Recorded Sex Assigned at Not on file 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 Gender Identity Not on file Sexual Orientation Not on file Last Filed Vital Signs Vital Sign Reading Time Taken Comments Blood Pressure 155/76 12/28/2020 10:19 AM CDT Pulse 65 12/28/2020 10:19 AM CDT Temperature - - Respiratory Rate - - Oxygen Saturation - - Inhaled Oxygen Concentration - - Weight 63 kg (139 lb) 12/28/2020 10:19 AM CDT Height 170.2 cm (5' 7 ) 12/28/2020 10:19 AM CDT Body Mass Index 21.77 12/28/2020 10:19 AM CDT Plan of Treatment Not on file Procedures Procedure Name Priority Date/Time Associated Diagnosis Comments SCREENING MAMMOGRAM BILATERAL W KAYODE Schedule Routine, Read Routine (OP Routine) 04/13/2024 9:50 AM CDT Screening mammogram, encounter for from Last 3 Months or Most Recently Relevant to Health Maintenance Results * Screening Mammogram Bilateral W Kayode (04/13/2024 9:50 AM CDT) Anatomical Region Laterality Modality Breast Bilateral Mammography Narrative 04/14/2024 11:47 AM CDT Mammogram Technique: Bilateral Digital Breast Tomosynthesis, Bilateral C-view 2D Screening mammogram. Views obtained: bilateral craniocaudal and bilateral mediolateral oblique. Computer Aided Detection was performed. Mammogram Findings: The present examination has been compared to prior imaging studies performed at [facility] on 01/05/2021, at [facility] on 01/28/2022, and at [facility] on 03/18/2023. There are scattered areas of fibroglandular density. There is no suspicious abnormality in either breast. Impression: There is no mammographic evidence of malignancy. Annual screening mammography is recommended. OVERALL FINAL ASSESSMENT: BI-RADS CATEGORY 1: Negative. Procedure Note Vandana Avery MD - 04/14/2024 Mammogram Technique: Bilateral Digital Breast Tomosynthesis, Bilateral C-view 2D Screening mammogram. Views obtained: bilateral craniocaudal and bilateral mediolateral oblique. Computer Aided Detection was performed. Mammogram Findings: The present examination has been compared to prior imaging studies performed at [facility] on 01/05/2021, at [facility] on 01/28/2022, and at [facility] on 03/18/2023. There are scattered areas of fibroglandular density. There is no suspicious abnormality in either breast. Impression: There is no mammographic evidence of malignancy. Annual screening mammography is recommended. OVERALL FINAL ASSESSMENT: BI-RADS CATEGORY 1: Negative. us Self Screening Mammogram IMG MAMMO PROCEDURES Fi nal Result from Last 3 Months or Most Recently Relevant to Health Maintenance Insurance [facility] Address: [address] [place] [address] [facility] CHOICE PLUS [facility] MEDICARE MEDICARE [facility] [place] MEDICARE [facility] Address: [address] [address] [facility] [place] Care Teams Painter Touch Up Relationship Specialty Start Date End Date Malissa Freedman DO [facility] [address] [place] [address] PCP - General Family Medicine 01/22/24 Damari Juares MD [id number] [facility] [address] [place] [address] Referring Physician Obstetrics and Gynecology 01/22/24
--- OUTSIDE RECORDS SUMMARY | 2025-01-07 11:49 | XMS_ITS | Clinical Summary ---
Author Organization [place] [id number] [facility] Address [address] [place] [address] Care Team Providers Care Laundry Pricing Clerk Name Role Phone FreedmanMalissa lira Leatha STONE Primary Care Provider + Damari Juares MD Unavailable [phone] Allergies Active Allergy Reactions Criticality Noted Date Comments Morphine Swelling Medium 12/28/2020 Medications multivitamin tablet Active cetirizine 10 mg capsule Take by mouth Active ibuprofen (ibuprofen) 200 mg tab/cap Take by mouth every 6 (six) hours as needed for pain Active Active Problems No known active problems Surgical History Surgery Date Site/Laterality Comments SECTION WRIST FRACTURE SURGERY KNEE SURGERY Medical History Medical History Date Comments Osteoarthritis Family History Medical History Relation Name Comments Alcohol abuse Other Arthritis Other Cancer Other Diabetes Other Hypertension Other Lung disease Other Relation Name Status Comments Other Social History Tobacco Use Types Packs/Day Years Used Date Smoking Tobacco: Never Comments Unknown Sex and Gender Information Value Date Recorded Sex Assigned at Not on file 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 Gender Identity Not on file Sexual Orientation Not on file Obstetrics History Last Filed Vital Signs Vital Sign Reading [...] 12/28/2020 10:19 AM CDT Plan of Treatment Health Maintenance Due Date Last Done Comments Colon Cancer Screening-Colonoscopy 1955 Depression Screening 1957 Fall Risk Assessment 1955 Hepatitis C Screening 1955 Osteoporosis Screening-Bone Density Scan 1957 DTaP/Tdap/Td Vaccine (1 - Tdap) 02/10/1968 Hepatitis B Screening 1975 Pneumococcal vaccine 65+ (1 of 1 - PCV) 2007 Zoster Vaccine (1 of 2) 2007 Well Visit 65+ 2022 Influenza Vaccine (#1) 2024 Breast Cancer Screening-Mammogram 04/13/2025 04/13/2024, 03/18/2023, 01/28/2022, Additional history exists Procedures Procedure Name Priority Date/Time Associated Diagnosis [...] compared to prior imaging studies performed at [facility] on 01/05/2021, at [facility] on 01/28/2022, and at [facility] on 03/18/2023. There are scattered areas of [...] compared to prior imaging studies performed at [facility] on 01/05/2021, at [facility] on 01/28/2022, and at [facility] on 03/18/2023. There are scattered areas of fibroglandular density. There is no suspicious abnormality in either breast. Impression: There is no mammographic evidence of malignancy. Annual screening mammography is recommended. OVERALL FINAL ASSESSMENT: BI-RADS CATEGORY 1: Negative. us Self Screening Mammogram IMG MAMMO PROCEDURES Fi nal Result from Last 3 Months or Most Recently Relevant to Health Maintenance Insurance [address] Compliance [address] [facility] CHOICE PLUS [facility] MEDICARE MEDICARE [employer] [place] [employer] [place] Member Subscriber Plan / Payer (Ef fective 2022-Present) Name:Lea Pichardo Relation to Subscriber:Self Name:Lea Pichardo Payer ID:[id number] Group ID:Not on file Type:[employer] Address: [address] INDIRA Mishra Care Teams Laundry Pricing Clerk Relationship Specialty Start Date End Date Malissa Freedman DO [address] [place] [address] [address] [place], [place] [id number] PCP - General Family Medicine 01/22/24 Damari Juares MD [id number] [facility] [address] [place] [address] Referring Physician Obstetrics and Gynecology 01/22/24
--- OUTSIDE RECORDS SUMMARY | 2025-01-07 11:49 | XMS_ITS | Clinical Summary ---
Author Organization [facility] Address [address] [place] [address] Care Team Providers Care Prism Inspector Name Role Phone Unavailable Primary Care Provider Unavailabl e Source Comments [facility],non-owned Affiliates and Associated Physician Practices is amultiple site organization consisting of ambulatory clinics and hospital sitesin [place], [place], [place] and [place]. This disclosure is being madepursuant to the Care Everywhere program and may not contain all information available regarding this patient. 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 Gender Identity Not on file Sexual Orientation Not on file Plan of Treatment Health Maintenance Due Date Last Done Comments BONE DENSITY TESTING 1957 COLOGUARD (AGES 45-75) - COL ON CA SCREENING 1957 COLON MONITORING 1957 COLONOSCOPY - COLON CA SCREENING 1957 CT COLONOGRAPHY - COLON CA SCREENING 1957 Colorectal Cancer Screening 1957 FIT - COLON CA SCREENING 1957 FLEX SIG - COLON CA SCREENING 1957 LIPID TESTING 1957 MAMMOGRAM 1957 MEDICARE AWV 12 MONTHS 1957 HEPATITIS C SCREENING 02/05/1975 DTAP/TDAP/TD VACCINES (1 - Tdap) 02/10/1976 PNEUMOCOCCAL VACCINE 50+ (1 of 1 - PCV) 2007 ZOSTER VACCINE (1 of 2) 2007 COVID-19 VACCINE (1 - 2023-2 5 season) 2024 DEPRESSION SCREENING 08/25/2024 INFLUENZA VACCINE (Season Ended) 2025 Respiratory Syncytial Virus (RSV) Vaccine Pt: or over 60 yrs (1 - 1-dose 75+ series) 02/10/2032 HEPATITIS B VACCINE Aged Out No longe r eligible based on patient's age to complete this topic HIB VACCINE Aged Out No longer eligi ble based on patient's age to complete this topic HPV VACCINE Aged Out No longer eligi ble based on patient's age to complete this topic MENINGOCOCCAL (Group B) VACC INE SHARED DECISION-MAKING Aged Out No longer eligibl e based on patient's age to complete this topic MENINGOCOCCAL GROUPS A/C/Y/W VACCINE Aged Out No longer eligible b ased on patient's age to complete this topic Insurance MEDICARE
[2025-01-07 12:05] LABS: Basophils Absolute Auto 0.1 K/mm3 (0.0-0.1); Basophils Percent Auto 0.9 % (0.2-1.2); Eosinophils Absolute Auto 0.1 K/mm3 (0-0.3); Eosinophils Percent Auto 1.3 % (0-4.4); Hematocrit 43.2 % (37.0-47.0); Hemoglobin 13.7 g/dL (12.0-15.0); Immature Granulocyte Absolute 0.01 K/mm3 (0.00-0.031); Immature Granulocyte Percent A 0.2 % (0-0.5); Lymphocytes Absolute Auto 2.14 K/mm3 (0.9-3.2); Lymphocytes Percent Auto 38.4 % (18.3-44.2); Mean Corpuscular HGB Conc 31.7 g/dl (32-36); Mean Corpuscular Hemoglobin 29.6 pg (26-34); Mean Corpuscular Volume 93.3 fl (80-100); Mean Platelet Volume 9.9 fl (7.4-10.4); Monocytes Absolute Auto 0.3 K/mm3 (0.1-0.6); Neutrophils Percent Auto 54.2 % (45.5-73.1); Platelet Count Result 227 k/mm3 (150-375); Red Blood Count 4.63 M/mm3 (4.2-5.4); Red Cell Distribution Width 12.6 % (11.5-14.5); White Blood Count 5.6 K/mm3 (4.5-10.0)
[2025-01-07 12:27] LABS: Alanine Aminotransferase 36 U/L (6-35); Albumin Level 4.7 g/dL (3.5-5.1); Alkaline Phosphatase 71 U/L (38-126); Anion Gap 8 mmol/L (4-12); Aspartate Amino Transferase 59 U/L (14-36); Bilirubin,Total 0.8 mg/dL (0.2-1.3); Blood Urea Nitrogen 24 mg/dL (7-17); Carbon Dioxide 28 mmol/L (22-30); Chloride 104 mmol/L (98-107); Estimated Glomerular Filt Rate > 60; Glucose 80 mg/dL (65-110); Potassium 3.9 mmol/L (3.4-5.0); Sodium 140 mmol/L (137-145)
[2025-01-07 12:49] LABS: D Dimer 1.03 ug/mL (<0.48)
== END 2025-01-07 11:45 | disposition home or self-care (01) ==
LOC: ANHLAB 11:47
PROVIDERS: PCP Internal Medicine; Visit Provider Nurse Practitioner
DX: R06.00 Dyspnea, unspecified (principal)
CPT/HCPCS: 36415; 80053; 83735; 84443; 85025; 85380

== ENCOUNTER 2025-01-07 13:07 | Inpatient (IN) | payer MEDICARE, OTHER, SELFPAY ==
[2025-01-07] VITALS (19 sets, daily range): BP systolic 126–158; BP diastolic 68–106; PULSE 42–66; RESP 14–20; TEMP 36.1–37.1; O2SAT 95–100; BMI 22.4
--- NOTE | ~2025-01-07 | NM_ITS ---
EXAMINATION: NM stress w perf spect multi DATE: 01/10/2025 15:09 INDICATION: Chest pain TECHNIQUE: Rest images were obtained following intravenous administration of 8.9 mCi Tc99m tetrofosmi n (AMDL). The patient performed an exercise activity. At peak exercise, 26.8 mCi Tc99m tetrofosmin (Scurriview) was administered intravenously, and stress images were obtained. Data was reconstructed in to short axis and horizontal and vertical long axis SPECT images. Gated SPECT images were also obtain ed. COMPARISON: None. FINDINGS: There is normal left ventricular perfusion on the post stress imaging without definite evidence of re versible or fixed perfusion abnormality to suggest ischemia or infarction. There is normal left vent ricular chamber size, wall motion and ejection fraction. Left ventricular ejection fraction measures 69%. IMPRESSION: 1. Normal myocardial perfusion at rest and during stress. 2. Left ventricular ejection fraction measuring >70%. Reviewed, dictated and finalized at location A.
--- NOTE | ~2025-01-07 | XR_ITS ---
EXAMINATION: XR chest 2V 01/07/2025 14:01 INDICATION: Chest pain PROCEDURE: 2 view chest COMPARISON: 03/04/2024 FINDINGS: The lungs are clear. The cardiomediastinal silhouette is within normal limits. There are no pleural effusions. There is no pneumothorax suspected. IMPRESSION: 1: NO ACUTE CARDIOPULMONARY DISEASE. Reviewed, dictated and finalized at location A.
--- NOTE | ~2025-01-07 | CT_ITS ---
CTA chest PE protocol Ordering provider: Marcel Estrada MD History: 69 years Female with . cp/soa . Comparison: None. Technique: CT angiogram chest was performed following timed intravenous injection of contrast. Thin s lice axial images and reformatted coronal images were obtained. Three dimensional reformatted images of the chest were also obtained using a [email or web address] workstation. . Automated exposure control and iterati ve reconstruction technique were employed. The dose-length product was 211.42 mGy-cm. 100 mL Omnipaqu e 350 was given IV. Findings: PULMONARY ARTERIES: No pulmonary embolus. VISUALIZED THORACIC INLET: Normal. MEDIASTINUM: Aorta/coronary arteries: The thoracic aorta is normal. Ascending aorta measures 3.9 cm. Heart/other: The heart is slightly enlarged. Lymph nodes: No mediastinal or hilar adenopathy. LUNGS: No pulmonary nodules or masses. No infiltrates or effusions. No pneumothorax. Dependent atelectatic c hanges. VISUALIZED UPPER ABDOMEN: Right kidney fullness of the renal pelvis. Further evaluation advised. Fat infiltration of the liver. Otherwise, the visualized upper abdomen is normal. MUSCULOSKELETAL: Soft tissues: The superficial soft tissues are normal. Bones: Age appropriate degenerative changes of the spine. Healing fracture in the right 10th rib. IMPRESSION: 1. No pulmonary embolism. 2. No acute cardiopulmonary pathology. 3. Fat infiltration of the liver. 4. Fullness of the right renal pelvis. Further evaluation advised. Reviewed, dictated and finalized at location A.
--- NOTE | 2025-01-07 13:10 | ECG_ITS ---
Test Date: 2025-01-07 13:16:50 Measurements Intervals [place] Rate: 53 P: 33 MO: 151 QRS: -65 QRSD: 102 T: 48 QT: 450 QTc: 424 Interpretive Statements SINUS BRADYCARDIA POSSIBLE LEFT ATRIAL ENLARGEMENT [-0.1mV P WAVE IN V1/V2] INCOMPLETE RIGHT BUNDLE BRANCH BLOCK [90+ ms QRS DURATION, TERMINAL R IN V1/V2, 40+ ms S IN I/aVL/V4/V5/V6] LEFT ANTERIOR FASCICULAR BLOCK [QRS AXIS <= -45, QR IN I, RS IN II] MODERATE ST DEPRESSION [0.05+ mV ST DEPRESSION] ABNORMAL ECG No previous ECG available for comparison Electronically Signed On 01-08-2025 07:58:34 CDT by Mike Bowens M.D.
--- OUTSIDE RECORDS SUMMARY | 2025-01-07 13:11 | XMS_ITS | Referral Summary ---
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 There are scattered areas [...] compared to prior imaging studies performed at [facility] on 01/05/2021, at [facility] on 01/28/2022, and at [facility] on 03/18/2023. There are scattered areas of fibroglandular density. There is no suspicious abnormality in either breast. Impression: There is no mammographic evidence of malignancy. Annual screening mammography is recommended. OVERALL FINAL ASSESSMENT: BI-RADS CATEGORY 1: Negative. us Self Screening Mammogram IMG MAMMO PROCEDURES Fi nal Result from Last 3 Months or Most Recently Relevant to Health Maintenance Insurance [facility] HEALTHCARE HMO [facility] CHOICE PLUS [facility] MEDICARE MEDICARE [facility] CO MEDICARE [facility] Address: [address] [address] PHYSICIANS [facility] INS CO Care Teams Cocoa Bean Roaster Relationship Specialty Start Date End Date Malissa Freedman DO [facility] [address] [place] [address] PCP - General Family Medicine 01/22/24 Damari Juares MD [address] [facility] [address] [place] [address] Referring Physician Obstetrics and Gynecology 01/22/24
--- OUTSIDE RECORDS SUMMARY | 2025-01-07 13:11 | XMS_ITS | Clinical Summary ---
Author Organization [facility] Address [address] [place] [address] Care Team Providers Care Sanforizing Machine Operator Name Role Phone Unavailable Primary Care Provider Unavailabl e Source Comments [facility],non-owned Affiliates and Associated Physician Practices is amultiple site organization consisting of ambulatory clinics and hospital sitesin [place], [place] and [place]. This disclosure is being madepursuant to the Care Everywhere program and may not contain all information available regarding this patient. Last updated 18.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
--- OUTSIDE RECORDS SUMMARY | 2025-01-07 13:11 | XMS_ITS | Clinical Summary ---
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 There are scattered areas [...] compared to prior imaging studies performed at [facility] on 01/05/2021, at [facility] on 01/28/2022, and at [facility] on 03/18/2023. There are scattered areas of fibroglandular density. There is no suspicious abnormality in either breast. Impression: There is no mammographic evidence of malignancy. Annual screening mammography is recommended. OVERALL FINAL ASSESSMENT: BI-RADS CATEGORY 1: Negative. us Self Screening Mammogram IMG MAMMO PROCEDURES Fi nal Result from Last 3 Months or Most Recently Relevant to Health Maintenance Insurance [address] [employer] [facility] CHO[facility] PLUS [facility] HMO/PPO Address: [address] [address] [place] [address] [facility] HMO/PPO Address: [address] [address] [place] [address] MEDICARE MEDICARE [employer] [place] MEDICARE [employer] [place] Member Subscriber Plan / Payer (Ef fective 2022-Present) Name:Lea Pichardo Relation to Subscriber:Self Name:Lea Pichardo Payer ID:[id number] Group ID:Not on file Type:[employer] Address: [address] INDIR[place] Mishra Care Teams Supervisor Enrobing Relationship Specialty Start Date End Date Malissa Freedman DO [address] [place] [address] [address] [place], [place] [id number] PCP - General Family Medicine 01/22/24 Damari Juares MD [address] [facility] [address] [place] [address] Referring Physician Obstetrics and Gynecology 01/22/24
--- OUTSIDE RECORDS SUMMARY | 2025-01-07 13:11 | XMS_ITS | Clinical Summary ---
Author Organization [facility] Address [address] [place] [address] Care Team Providers Care Driller Brake Lining Name Role Phone Jodi Sada MCKEON Primary Care Provider [phone] Encounters Date Type Department Care Team Description 11/04/2024 2:45 PM CDT - 11/04/2024 11:59 PM CDT Hospital Encounter [facility] [address] [place] [address] Clay Guerra MD Discharge Disposition: Home or [...] 3:03 PM Narrative 11/04/2024 3:04 PM CDT [address] [address] EXAMINATION: Multislice Helical CT Coronary Calcium Scoring [...] Calcium score guidelines: Total Score* Calcium Plaque [place] *Risk *Probability of significant CAD 0 No [...] Procedure Note Nito Singleton MD - 11/04/[address] [address] EXAMINATION: Multislice Helical CT Coronary Calcium Scoring [...] Calcium score guidelines: Total Score* Calcium Plaque [place] *Risk *Probability ofsignificant CAD 0 No Plaque [...] from Last 3 Months Insurance MEDICARE [facility] [place] Care Teams Driller Brake Lining Relationship Specialty Start Date End Date Sada Zapata PA PCP - General PHYSICIAN LANDSCAPE FOREMAN 01/03/21
[2025-01-07 13:48] LABS: Basophils Absolute Auto 0.1 K/mm3 (0.0-0.1); Eosinophils Absolute Auto 0.1 K/mm3 (0-0.3); Eosinophils Percent Auto 1.5 % (0-4.4); Hemoglobin 14.2 g/dL (12.0-15.0); Immature Granulocyte Absolute 0.01 K/mm3 (0.00-0.031); Immature Granulocyte Percent A 0.2 % (0-0.5); Lymphocytes Absolute Auto 1.79 K/mm3 (0.9-3.2); Lymphocytes Percent Auto 34.2 % (18.3-44.2); Mean Corpuscular HGB Conc 32.3 g/dl (32-36); Mean Corpuscular Hemoglobin 29.9 pg (26-34); Mean Corpuscular Volume 92.6 fl (80-100); Mean Platelet Volume 10.2 fl (7.4-10.4); Monocytes Absolute Auto 0.2 K/mm3 (0.1-0.6); Monocytes Percent Auto 4.4 % (2.6-8.5); Neutrophils Absolute Auto 3.1 K/mm3 (1.3-6.7); Neutrophils Percent Auto 58.7 % (45.5-73.1); Platelet Count Result 247 k/mm3 (150-375); Red Blood Count 4.75 M/mm3 (4.2-5.4); Red Cell Distribution Width 12.6 % (11.5-14.5); White Blood Count 5.2 K/mm3 (4.5-10.0)
[2025-01-07 13:58] LABS: Alanine Aminotransferase 35 U/L (6-35); Albumin Level 4.7 g/dL (3.5-5.1); Alkaline Phosphatase 84 U/L (38-126); Anion Gap 9 mmol/L (4-12); Aspartate Amino Transferase 54 U/L (14-36); Bilirubin,Total 0.7 mg/dL (0.2-1.3); Blood Urea Nitrogen 23 mg/dL (7-17); Calcium 10.1 mg/dL (8.4-10.2); Carbon Dioxide 26 mmol/L (22-30); Chloride 104 mmol/L (98-107); Estimated CRCL calculation 50 ml/min; Estimated Glomerular Filt Rate 60; Glucose 96 mg/dL (65-110); Lipase 197 U/L (23-300); Potassium 3.8 mmol/L (3.4-5.0); Sodium 139 mmol/L (137-145)
[2025-01-07 14:03] LABS: Prothrombin Time 13.2 Seconds (11.1-14.7)
[2025-01-07 14:04] LABS: Partial Thromboplastin Time 27.8 Seconds (22.3-36.8)
[2025-01-07 14:09] LABS: Troponin I < 0.012 ng/mL (0.000-0.034)
--- OUTSIDE RECORDS SUMMARY | 2025-01-07 14:16 | XMS_ITS | Clinical Summary ---
Author Organization [facility] Address [address] [place] [address] Care Team Providers Care Hand Stripper Name Role Phone Jodi Sada MCKEON Primary Care Provider [phone] Encounters Date Type Department Care Team Description 11/04/2024 2:45 PM CDT - 11/04/2024 11:59 PM CDT Hospital Encounter [facility] [address] [place] [address] Clay Guerra MD Discharge Disposition: Home or [...] 3:03 PM Narrative 11/04/2024 3:04 PM CDT [address] [address] EXAMINATION: Multislice Helical CT Coronary Calcium Scoring [...] Calcium score guidelines: Total Score* Calcium Plaque [place] *Risk *Probability of significant CAD 0 No [...] Procedure Note Nito Singleton MD - 11/04/[address] [address] EXAMINATION: Multislice Helical CT Coronary Calcium Scoring [...] Calcium score guidelines: Total Score* Calcium Plaque [place] *Risk *Probability ofsignificant CAD 0 No Plaque [...] from Last 3 Months Insurance MEDICARE [facility] [place] Care Teams Hand Stripper Relationship Specialty Start Date End Date Sada Zapata PA PCP - General PHYSICIAN SPLUNK CONSULTANT 01/03/21
--- OUTSIDE RECORDS SUMMARY | 2025-01-07 14:16 | XMS_ITS | Clinical Summary ---
Author Organization [facility] Address [address] [place] [address] Care Team Providers Care Synthetic Department Supervisor Name Role Phone Unavailable Primary Care Provider Unavailabl e Source Comments [facility],non-owned Affiliates and Associated Physician Practices is amultiple site organization consisting of ambulatory clinics and hospital sitesin [place], [place], [place] and [place]. This disclosure is being madepursuant to the Care Everywhere program and may not contain all information available regarding this patient. 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
--- OUTSIDE RECORDS SUMMARY | 2025-01-07 14:16 | XMS_ITS | Referral Summary ---
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 There are [...] compared to prior imaging studies performed at [facility] on 01/05/2021, at [facility] on 01/28/2022, and at [facility] on 03/18/2023. There are scattered areas of fibroglandular density. There is no suspicious abnormality in either breast. Impression: There is no mammographic evidence of malignancy. Annual screening mammography is recommended. OVERALL FINAL ASSESSMENT: BI-RADS CATEGORY 1: Negative. us Self Screening Mammogram IMG MAMMO PROCEDURES Fi nal Result from Last 3 Months or Most Recently Relevant to Health Maintenance Insurance [facility] HMO [facility]ICE PLUS [facility] HMO/PPO Address: [address] [address] [place] [address] [facility] H[facility]/PPO Address: [address] [address] [place] [address] MEDICARE MEDICARE [facility] MEDICARE [facility] INS CO Care Teams Nailer Operator Relationship Specialty Start Date End Date Malissa Freedman DO [facility] [address] [place] [address] PCP - General Family Medicine 01/22/24 Damari Juares MD [address] [facility] [address] [place] [address] Referring Physician Obstetrics and Gynecology 01/22/24
--- OUTSIDE RECORDS SUMMARY | 2025-01-07 14:16 | XMS_ITS | Clinical Summary ---
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 There are scattered areas of [...] compared to prior imaging studies performed at [facility] on 01/05/2021, at [facility] at [facility] on 01/28/2022, and at [facility] on 03/18/2023. There are scattered areas of fibroglandular density. There is no suspicious abnormality in either breast. Impression: There is no mammographic evidence of malignancy. Annual screening mammography is recommended. OVERALL FINAL ASSESSMENT: BI-RADS CATEGORY 1: Negative. us Self Screening Mammogram IMG MAMMO PROCEDURES Fi nal Result from Last 3 Months or Most Recently Relevant to Health Maintenance Insurance [address] [employer] [facility] CHOICE PLUS [facility] HMO/PPO Address: [address] [place] [address] [facility] HMO/PPO Address: [address] [address] [place] [address] MEDICARE MEDICARE [employer] [place] MEDICARE [employer] [place] Member Subscriber Plan / Payer (Ef fective 2022-Present) Name:Lea Pichardo Relation to Subscriber:Self Name:Lea Pichardo Payer ID:[id number] Group ID:Not on file Type:[employer] Address: [address] [place] Mishra Care Teams Marine Engine Machinist Relationship Specialty Start Date End Date Malissa Freedman DO [address] [place] [address] [address] [place], [place] [id number] PCP - General Family Medicine 01/22/24 Damari Juares MD [address] [facility] [address] [place] [address] Referring Physician Obstetrics and Gynecology 01/22/24
[2025-01-07] MEDS: ASPIRIN 81 MG CHEWABLE TABLET 324 MG PO (15:08)
--- NOTE | 2025-01-07 17:30 | ED.CHESTPAIN ---
HPI - Chest Pain General Chief Complaint: Chest Pain Stated Complaint: Sent by PMD, Abnormal EKG, High D-Dimer Time Seen by Provider: 01/07/25 14:12 History of Present Illness HPI narrative: Patient is a 69-year-old female who presents ER for PCP for chest pain and shortness of breath. She has been having exertional dyspnea over last few weeks. Over the last week she has developed chest pain when she has her exertional dyspnea. It never occurs at rest. She reports the sensation is fleeting. She has a stress test scheduled for January 31. She had an abnormal D-dimer outpatient was told to come here for further evaluation. She has not been coughing a blood. No history heart disease. Related Data Home Medications ?Medication ?Instructions ?Recorded ?Confirmed ?Last Taken ?Type lactobacillus combination no.9 4 4,000 mmu cells PO DAILY 10/10/21 01/07/25 01/07/25 09:00 History billion cell capsule (Adult 50 Plus Probiotic) cholecalciferol (vitamin D3) 25 25 mcg PO DAILY 03/21/23 01/07/25 01/07/25 09:00 History mcg (1,000 unit) chewable tablet (Vitamin D3) pyridoxine (vitamin B6) 100 mg 100 mg PO DAILY 03/21/23 01/07/25 01/06/25 21:00 History tablet ginkgo biloba 40 mg tablet 40 mg PO DAILY 09/10/23 01/07/25 01/06/25 18:00 History Calcium 600 mg PO BID 05/19/24 01/07/25 01/07/25 09:00 History fluticasone propionate 50 2 spray intranasal DAILY 05/19/24 01/07/25 01/06/25 09:00 History mcg/actuation nasal spray,suspension magnesium 320 mg PO HS 05/19/24 01/07/25 01/06/25 21:00 History cetirizine 10 mg tablet (Zyrtec) 10 mg PO DAILY 09/06/24 01/07/25 01/06/25 18:00 History 10 mg mecobalamin (vitamin B12) 1 tablet PO DAILY 09/06/24 01/07/25 01/06/25 21:00 History vit A,C and P-jfdpxi-xevokhcl 2 tablet PO DAILY 09/06/24 01/07/25 01/07/25 09:00 History Vital proteins collegen powder See Rx Instructions PO .COMPLEX 01/07/25 01/07/25 01/06/25 18:00 History albuterol sulfate 90 mcg/actuation 2 puff inhalation Q6H PRN cough 01/07/25 01/07/25 Unknown History aerosol inhaler Allergies Allergy/AdvReac Type Severity Reaction Status Date / Time morphine Allergy Mild Swelling Verified 01/07/25 10:10 Review of Systems Review of Systems: All systems reviewed & are unremarkable except as noted in HPI and below Constitutional: Constitutional: Reports no additional constitutional complaints ENT: Reports system reviewed and no additional complaints, except as documented Cardiovascular: Cardiovascular: Reports no additional cardiovascular complaints Respiratory: Respiratory: Reports no additional respiratory complaints COUNTS INCLUDE 234 BEDS AT THE [facility] Past Medical History Medical History Change in bowel habits Abdominal cramping Chronic diarrhea Dysphonia Chronic cough Osteopenia Insomnia Allergies History of patellar fracture History of wrist fracture Arthritis Anxiety Urinary frequency Wears glasses Pes planovalgus, acquired Posterior tibial tendinitis of right lower extremity Surgical History Surgical History History of surgery on wrist H/O knee surgery History of loop electrical excision procedure (LEEP) History of 2 Family History Family History Mother Family history of obesity Diabetes mellitus Hypertension Depression Heart disease Father Family history of malignant neoplasm Patient's father is Alcoholism Lung cancer Brain cancer Skin cancer Throat cancer Sibling Alcoholism Depression Grandparent Hypertension Other Arthritis Social History Social History Social History: Caffeine-tea Smoking status: Never smoker Alcohol intake: current Drinks per week: 7 Alcohol use details: beer Substance use: current Substance use type: marijuana Other substance usage details: edible mints Last use: 2 months Do You Feel Safe in your Home?: Yes Lack of Transportation: No Lack of Food: Never True Current Housing: I Have Housing Concerned About Future Housing: No Difficulty Paying Gas/Electric Bills: No Difficulty Paying for Meds: No Currently Unemployed: No Education: High School Diploma/GED Difficulty w/ Childcare or Family Care: No Living arrangements: with family Spiritual care concerns: No Exam Narrative: GENERAL: Well-appearing, well-nourished, and in no acute distress. HEAD: Normocephalic, atraumatic. ENT: Mucous membranes moist. NECK: Supple. CHEST: Clear to auscultation. No respiratory distress. HEART: Regular rate and rhythm. Normal peripheral pulses. ABDOMEN: Soft, nontender, nondistended. EXTREMITIES: Normal range of motion. No edema. SKIN: Warm, dry, no rash. NEURO: Alert and oriented x3. PSYCH: Normal mood and affect. Course Course Emergency Course: Patient resting comfortably. No PE. Elevated heart score. ST depression on EKG. Admit for observation. Vital Signs Vital signs: Vital Signs Temperature 97 F L 01/07/25 13:33 Pulse Rate 66 01/07/25 13:33 Respiratory Rate 16 01/07/25 13:33 Blood Pressure 152/84 H 01/07/25 13:33 Pulse Oximetry 99 01/07/25 13:33 Oxygen Delivery Room Air 01/07/25 13:33 Temperature 98.8 F 01/07/25 21:11 Pulse Rate 55 L 01/07/25 21:11 Respiratory Rate 16 01/07/25 21:11 Blood Pressure 149/87 H 01/07/25 21:11 Pulse Oximetry 98 01/07/25 21:11 Oxygen Delivery Room Air 01/07/25 13:33 MDM - Chest Pain Lab Data 01/07/25 13:34 01/07/25 13:35 Labs: Lab Results 01/07/25 01/07/25 Range/Units 13:34 13:35 WBC 5.2 (4.5-10.0) K/mm3 RBC 4.75 (4.2-5.4) M/mm3 Hgb 14.2 (12.0-15.0) g/dL Hct 44.0 (37.0-47.0) % MCV 92.6 (80-100) fl MCH 29.9 (26-34) pg MCHC 32.3 (32-36) g/dl RDW 12.6 (11.5-14.5) % Plt Count 247 (150-375) k/mm3 MPV 10.2 (7.4-10.4) fl Immature Gran % (Auto) 0.2 (0-0.5) % Neut % (Auto) 58.7 (45.5-73.1) % Lymph % (Auto) 34.2 (18.3-44.2) % [place] % (Auto) 4.4 (2.6-8.5) % Eos % (Auto) 1.5 (0-4.4) % Baso % (Auto) 1.0 (0.2-1.2) % Lymph # (Auto) 1.79 (0.9-3.2) K/mm3 [place] # (Auto) 0.2 (0.1-0.6) K/mm3 Eos # (Auto) 0.1 (0-0.3) K/mm3 Baso # (Auto) 0.1 (0.0-0.1) K/mm3 Abs Immat Gran (auto) 0.01 (0.00-0.031) K/mm3 Absolute Neuts (auto) 3.1 (1.3-6.7) K/mm3 Absolute Nucleated RBC 0.000 (0.0-0.012) K/mm3 Nucleated RBC % 0.0 (0.0-0.2) % PT 13.2 (11.1-14.7) Seconds INR 1.0 APTT 27.8 (22.3-36.8) Seconds Sodium 139 (137-145) mmol/L Potassium 3.8 (3.4-5.0) mmol/L Chloride 104 (98-107) mmol/L Carbon Dioxide 26 (22-30) mmol/L Anion Gap 9 (4-12) mmol/L BUN 23 H (7-17) mg/dL Creatinine 0.93 (0.7-1.0) mg/dL Estim Creat Clear Calc 50 ml/min Estimated GFR 60 (59 - ) Glucose 96 (65-110) mg/dL Calcium 10.1 (8.4-10.2) mg/dL Total Bilirubin 0.7 (0.2-1.3) mg/dL AST 54 H (14-36) U/L ALT 35 (6-35) U/L Alkaline Phosphatase 84 (38-126) U/L Troponin I < 0.012 (0.000-0.034) ng/mL Total Protein 8.0 (6.3-8.2) g/dL Albumin 4.7 (3.5-5.1) g/dL Lipase 197 (23-300) U/L Imaging Data Radiologist's impression: ITS Impressions Chest X-Ray 01/07/25 14:28 IMPRESSION: 1: NO ACUTE CARDIOPULMONARY DISEASE. Chest CTA 01/07/25 16:10 IMPRESSION: 1. No pulmonary embolism. 2. No acute cardiopulmonary pathology. 3. Fat infiltration of the liver. 4. Fullness of the right renal pelvis. Further evaluation advised. ECG Data EKG #1: ECG completion date: 01/07/25 ECG completion time: 13:16 EKG Interpretation: bradycardia (53), sinus rhythm, ST depression, normal QRS and normal QT Discharge Plan Discharge Clinical Impression: Chest pain Patient Disposition: Still a Patient Condition: Stable Quality HEART score for chest pain patients History: moderately suspicious ECG: significant ST depression Age: > 45 and < 65 years Risk factors: no risk factors known Troponin: < or = to 1x normal limit Heart score: 4
--- NOTE | 2025-01-07 18:08 | P.HP_ITS ---
H&P: HPI History of Present Illness Date/Time: 01/07/25 18:08 Chief Complaint: Chest pain and shortness breast Narrative: 69-year-old female past medical history of anxiety, chronic diarrhea, presents with chest pain and shortness of breath. Patient went to her primary care provider today for shortness of breath with exertion found to have elevated D- dimer and was sent to the emergency room for further evaluation. Patient states that she has chest pain with strenuous activities. She denies chest pain at rest or with light to moderate activities. Patient states that she does not have a demurrage agent. Patient denies nausea vomiting, fever chills, low back pain or epigastric pain. Lab work in the ED CBC within normal limits,, BMP within normal limits, troponin negative chest x-ray shows no acute process. CT chest shows no pulmonary embolism, no acute process, fatty liver and fullness of the right renal pelvis. EKG shows sinus bradycardia incomplete right bundle-branch block. Patient admitted for stress test and chest pain workup. Review of Systems Review of Systems: 12 systems were reviewed and are negativ e except for as per HPI. [facility] Past Medical History Medical History Change in bowel habits Abdominal cramping Chronic diarrhea Dysphonia Chronic cough Osteopenia Insomnia Allergies History of patellar fracture History of wrist fracture Arthritis Anxiety Urinary frequency Wears glasses Pes planovalgus, acquired Posterior tibial tendinitis of right lower extremity Surgical History Surgical History History of surgery on wrist H/O knee surgery History of loop electrical excision procedure (LEEP) History of 2 Family History Family History Mother Family history of obesity Diabetes mellitus Hypertension Depression Heart disease Father Family history of malignant neoplasm Patient's father is Alcoholism Lung cancer Brain cancer Skin cancer Throat cancer Sibling Alcoholism Depression Grandparent Hypertension Other Arthritis Social History Social History Social History: Caffeine-tea Smoking status: Never smoker Alcohol intake: current Drinks per week: 7 Alcohol use details: beer Substance use: current Substance use type: marijuana Other substance usage details: edible mints Last use: 2 months Do You Feel Safe in your Home?: Yes Lack of Transportation: No Lack of Food: Never True Current Housing: I Have Housing Concerned About Future Housing: No Difficulty Paying Gas/Electric Bills: No Difficulty Paying for Meds: No Currently Unemployed: No Education: High School Diploma/GED Difficulty w/ Childcare or Family Care: No Living arrangements: with family Spiritual care concerns: No Meds Home Medications and Allergies Home Medications ?Medication ?Instructions ?Recorded ?Confirmed ?Type lactobacillus combination no.9 4 4,000 mmu cells PO DAILY 10/10/21 01/07/25 History billion cell capsule (Adult 50 Plus Probiotic) cholecalciferol (vitamin D3) 25 25 mcg PO DAILY 03/21/23 01/07/25 History mcg (1,000 unit) chewable tablet (Vitamin D3) pyridoxine (vitamin B6) 100 mg 100 mg PO DAILY 03/21/23 01/07/25 History tablet ginkgo biloba 40 mg tablet 40 mg PO DAILY 09/10/23 01/07/25 History Calcium 600 mg PO BID 05/19/24 01/07/25 History fluticasone propionate 50 2 spray intranasal DAILY 05/19/24 01/07/25 History mcg/actuation nasal spray,suspension magnesium 320 mg PO HS 05/19/24 01/07/25 History buspirone 10 mg tablet 10 mg PO TID PRN anxiety #90 tabs 09/06/24 01/07/25 Rx cetirizine 10 mg tablet (Zyrtec) 10 mg PO DAILY 09/06/24 01/07/25 History mecobalamin (vitamin B12) 1 tablet PO DAILY 09/06/24 01/07/25 History vit A,C and I-ykpyln-cgosfced 2 tablet PO DAILY 09/06/24 01/07/25 History Vital proteins collegen powder See Rx Instructions PO .COMPLEX 01/07/25 01/07/25 History albuterol sulfate 90 mcg/actuation 2 puff inhalation Q6H PRN cough 01/07/25 01/07/25 History aerosol inhaler Allergies Allergy/AdvReac Type Severity Reaction Status Date / Time morphine Allergy Mild Swelling Verified 01/07/25 10:10 Vital Signs Vital Signs - 24 hr 01/07/25 13:33 01/07/25 14:06 01/07/25 14:31 Temperature 97 F L 97.8 F Pulse Rate 66 55 L 54 L Respiratory Rate 16 20 15 Blood Pressure 152/84 H 142/83 H 143/90 H Pulse Oximetry 99 95 99 Oxygen Delivery Room Air 01/07/25 14:46 01/07/25 15:30 01/07/25 16:34 Temperature 97.9 F 97.8 F Pulse Rate 55 L 58 L 44 L Respiratory Rate 18 20 18 Blood Pressure 136/90 126/68 146/101 H Pulse Oximetry 97 98 100 Oxygen Delivery Exam Narrative: General: well appearing, appears stated age. HEENT: normocephalic, atraumatic. Mucous membranes moist. EOMI, PERRLA, bilateral sclera anicteric, no conjunctival injection. Neck supple without JVD, lymphadenopathy, or bruit. Respiratory: clear to ascultation bilaterally. No rales/rhonic/wheezes. Cardiovascular: Regular rate and rhythm, normal S1-S2 upon ascultation. No murmurs, rubs, or clicks. PMI is nondisplaced, capillary refill less than 3 second. Abdomen: Soft, round, no pulsatile masses, nondistended and nontender. No rebound, no guarding. No CVA tenderness, no hepatosplenomegaly. Bowel sounds present to all four quadrants. No high pitch or tinkling sounds, resonant to percussion. Extremities: No cyanosis, clubbing, or edema present. Pulses are palpable 2/2. Active ROM to all four extremities. Neuro: Alert and orientated x 4. PERRLA. Cranial nerves 2-12 intact without focal deficit. Skin: Warm, dry, and intact, without rash, erythema, or lesion. Psych: pleasant, cooperative, normal speech, normal affect, no hallucinations, no dysarthia H&P: Results Labs Labs: Short CBC 01/07/25 Range/Units 13:34 WBC 5.2 (4.5-10.0) K/mm3 Hgb 14.2 (12.0-15.0) g/dL Hct 44.0 (37.0-47.0) % Plt Count 247 (150-375) k/mm3 [facility] 01/07/25 13:35 Sodium 139 Potassium 3.8 Chloride 104 Carbon Dioxide 26 BUN 23 H Creatinine 0.93 Glucose 96 Calcium 10.1 Cardiac Enzymes 01/07/25 Range/Units 13:35 Troponin I < 0.012 (0.000-0.034) ng/mL Liver Function 01/07/25 Range/Units 13:35 Total Bilirubin 0.7 (0.2-1.3) mg/dL AST 54 H (14-36) U/L ALT 35 (6-35) U/L Alkaline Phosphatase 84 (38-126) U/L Albumin 4.7 (3.5-5.1) g/dL Assessment and Plan Assessment and plan (1) Chest pain: Code(s): R07.9 - Chest pain, unspecified Status: Acute Assessment and Plan: Trend troponins EKG p.r.n. Cardiology consult pending Walking stress test pending (2) Anxiety: Code(s): F41.9 - Anxiety disorder, unspecified Status: Acute Assessment and Plan: Well controlled Continue buspirone (3) Bradycardia: Code(s): R00.1 - Bradycardia, unspecified Status: Acute Assessment and Plan: Asymptomatic Telemetry monitoring (4) Shortness of breath: Code(s): R06.02 - Shortness of breath Status: Acute Assessment and Plan: Chest x-ray shows no acute process Patient not requiring oxygen Continue home inhaler Quality VTE Prophylaxis VTE prophylaxis: mechanical ordered and pharmacologic ordered Hospitalist MIPS Advance Care Plan I have confirmed that the patient's Advanced Care Plan is present, code status is documented, or surrogate decision maker is listed in patient medical record.: Yes Medication Reconciliation I have utilized all available resources to obtain, update and review the patients current medications (includes all prescriptions, OTC, herbals, cannabis, and nutritional supplements).: Yes
--- NOTE | 2025-01-07 20:29 | ADMGEN ---
This patient, Lea López, was admitted to IMU Room 200-01 at 2027. Patient/family oriented to hospital policies and general routines including ID bracelet, bed and alarms, visiting hours, pain management, procedures, bathroom and other care routines, personal items, smoking policy, room service/diet, and visiting hours. Information on how to activate the Rapid Response Team has been discussed. Patient/Family are encouraged to report perceived risks to care and to ask questions if they do not understand what they are told or what they should do.
[2025-01-07 21:30] LABS: Troponin I < 0.012 ng/mL (0.000-0.034)
[2025-01-07] MEDS: busPIRone HCL 10 MG TABLET PO (23:32)
[2025-01-08] VITALS (19 sets, daily range): BP systolic 128–150; BP diastolic 80–101; PULSE 42–80; RESP 16–18; TEMP 36.3–36.9; O2SAT 92–100
--- NOTE | 2025-01-08 | ECHO_ITS ---
Patient Info Name: Lea López Age: 69 years : 1955 Gender: Female Ht: 67 in Wt: 143 lbs BSA: 1.75 m2 HR: 46 bpm BP: 142 / 85 mmHg Heart Rhythm: Sinus Rhythm, Bradycardia Technical Quality: Good Exam Date: 01/08/2025 12:57 PM Patient Status: I Admit Date: 01/07/2025 Exam Type: CA echo doppler color flow Complete two-dimensional, color flow and Doppler transthoracic echocardiogram is performed. Staff Referring Physician: Marcel Estrada MD Dental Practitioner: Genoveva Jiménez Attending Provider: Kumar Hayden Summary 1. Complete two-dimensional, color flow and Doppler transthoracic echocardiogram is performed. 2. Left ventricular chamber dimension is normal. 3. Left ventricular systolic function is normal, estimated at 65-70. 4. There is mildly increased left ventricular wall thickness. 5. The left ventricular diastolic function is grade II diastolic dysfunction. 6. Left atrial chamber dimension is mildly enlarged. 7. Right atrial chamber dimension is mildly enlarged. 8. There is mild to moderate aortic valve regurgitation. 9. There is mild mitral valve regurgitation. 10. There is mild tricuspid valve regurgitation. 11. The prox ascending aorta size is mildly dilated. Left Ventricle Left ventricular chamber dimension is normal. Left ventricular systolic function is normal, estimated at 65-70. There is mildly increased left ventricular wall thickness. The left ventricular diastolic function is grade II diastolic dysfunction. Right Ventricle Right ventricular chamber dimension is normal. Right ventricular systolic function is normal. Left Atria Left atrial chamber dimension is mildly enlarged. Right Atria Right atrial chamber dimension is mildly enlarged. Atrial Septum Intact interatrial septum visualized by color flow imaging. Aortic Valve The aortic valve is trileaflet. There is mild aortic valve sclerosis. There is no aortic valve stenosis. There is mild to moderate aortic valve regurgitation. Pulmonic Valve The pulmonic valve is normal. There is no pulmonic valve stenosis. There is trace pulmonic regurgitation. Mitral Valve The mitral valve has thickened leaflets. There is no mitral valve stenosis. There is mild mitral valve regurgitation. Tricuspid Valve The tricuspid valve leaflets are normal. There is no significant tricuspid valve stenosis. There is mild tricuspid valve regurgitation. No pulmonary hypertension, estimated pulmonary arterial systolic pressure is 29 mmHg. Pericardium/Pleural The pericardium appears normal. There is trivial pericardial effusion. Inferior Vena Cava Normal inferior vena cava with >50% collapse upon inspiration consistent with normal right atrial pressure, 5 mmHg. Aorta The aortic root size at the sinus of Valsalva is normal. The prox ascending aorta size is mildly dilated. Left Ventricular Outflow Tract Name Value Normal LVOT 2D LVOT Diameter 2.0 cm LVOT Doppler LVOT Peak Velocity 97 cm/s LVOT Peak Gradient 4 mmHg LVOT Mean Gradient 2 mmHg LVOT VTI 25 cm LVOT VTI/AV VTI Ratio 0.8 LVOT Stroke Volume 80 ml LVOT CO 13.0 l/min LVOT CI 7.4 l/min/m2 Pulmonic Valve Name Value Normal RVOT Doppler RVOT Peak Velocity 56 cm/s RVOT Peak Gradient 1 mmHg PV Doppler PV Peak Velocity 228 cm/s PV Peak Gradient 21 mmHg Mitral Valve Name Value Normal MV Diastolic Function MV E Peak Velocity 74 cm/s MV A Peak Velocity 60 cm/s MV E/A 1.2 MV Decel Time (PW) 258 ms MV Annular TDI MV E/e' (Septal) 13.7 MV E/e' (Lateral) 9.7 MV E/e' (Average) 11.7 Tricuspid Valve Name Value Normal TV Regurgitation Doppler TR Peak Velocity 244 cm/s TR Peak Gradient 23 mmHg Estimated PAP/RSVP RA Pressure 5 mmHg <=5 PA Systolic Pressure 29 mmHg <36 RV Systolic Pressure 29 mmHg <36 TV Annular TDI TV Lateral Leatha s' Velocity 14.1 cm/s >=9.5 Aortic Valve Name Value Normal AV Doppler AV Peak Velocity 142 cm/s AV Peak Gradient 8 mmHg AV Mean Gradient 4 mmHg AV VTI 32 cm AV Area (Cont Eq VTI) 2.5 cm2 >=3.0 AV Area (Cont Eq Jose) 2.2 cm2 AV DI (Jose) 0.69 AV Regurgitation 2D LVOT Area 3.3 cm2 Ventricles Name Value Normal LV Dimensions 2D/MM IVS Diastolic Thickness (2D) 1.2 cm 0.6-1.0 LVID Diastole (2D) 4.1 cm 3.8-5.2 LVIW Diastolic Thickness (2D) 1.2 cm 0.6-0.9 LVID Systole (2D) 2.9 cm 2.2-3.5 LVOT Diameter 2.0 cm LV Mass (2D Cubed) 175.60 g 67.00-162.00 LV Mass Index (2D Cubed) 100 g/m2 43-95 Relative Wall Thickness (2D) 0.59 <=0.42 LV Fractional Shortening/Ejection Fraction 2D/MM LV Fractional Shortening (2D) 29 % 27-45 LV EF (2D Teichholz) 57 % LV Diastolic Volume (4C MOD) 135 ml LV EF (4C MOD) 63 % LV Diastolic Volume (2C MOD) 132 ml LV EF (2C MOD) 75 % LV Diastolic Volume (BP MOD) 135 ml 46-106 LV Diastolic Volume Index (BP MOD) 77 ml/m2 29-61 LV Systolic Volume (BP MOD) 43 ml 14-42 LV Systolic Volume Index (BP MOD) 25 ml/m2 8-24 LV EF (BP MOD) 68 % 54-74 LV Diastolic Length (4C) 8.0 cm LV Systolic Length (4C) 6.6 cm LV Stroke Volume (4C MOD) 85 ml Atria Name Value Normal LA Dimensions LA Volume (4C A-L) 68 ml LA Volume (BP A-L) 65 ml RA Dimensions RA Systolic Major [place] Length (4C) 5.1 cm 2.2-2.8 RA Area (4C) 22.1 cm2 <=18.0 Report Signatures
[2025-01-08 00:43] LABS: Troponin I < 0.012 ng/mL (0.000-0.034)
--- NOTE | 2025-01-08 15:04 | P.PNIM_ITS ---
Progress Note: A&P Assessment and Plan (1) Chest pain: Code(s): R07.9 - Chest pain, unspecified Status: Acute Assessment and Plan: Noted, worsening chest pain frequency described as pressure Troponin negative, ECHO pending Cardiology consulted (2) Anxiety: Code(s): F41.9 - Anxiety disorder, unspecified Status: Acute Assessment and Plan: Well controlled Continue buspirone (3) Bradycardia: Code(s): R00.1 - Bradycardia, unspecified Status: Acute Assessment and Plan: Asymptomatic Telemetry monitoring cardiology consulted ECHO pending monitor on telemetry (4) Shortness of breath: Code(s): R06.02 - Shortness of breath Status: Acute Assessment and Plan: Chest x-ray shows no acute process Patient not requiring oxygen Continue home inhaler rule out ACS Plan DVT prophylaxis on Lovenox Subjective Date/time seen: 01/08/25 15:04 Interval history: Patient comfortable at bedside Review of Systems Review of Systems: 12 systems were reviewed and are negativ e except for as per HPI. Exam Narrative: General: well appearing, appears stated age. HEENT: normocephalic, atraumatic. Mucous membranes moist. EOMI, PERRLA, bilateral sclera anicteric, no conjunctival injection. Neck supple without JVD, lymphadenopathy, or bruit. Respiratory: clear to ascultation bilaterally. No rales/rhonic/wheezes. Cardiovascular: Regular rate and rhythm, normal S1-S2 upon ascultation. No murmurs, rubs, or clicks. PMI is nondisplaced, capillary refill less than 3 second. Abdomen: Soft, round, no pulsatile masses, nondistended and nontender. No rebound, no guarding. No CVA tenderness, no hepatosplenomegaly. Bowel sounds present to all four quadrants. No high pitch or tinkling sounds, resonant to percussion. Extremities: No cyanosis, clubbing, or edema present. Pulses are palpable 2/2. Active ROM to all four extremities. Neuro: Alert and orientated x 4. PERRLA. Cranial nerves 2-12 intact without focal deficit. Skin: Warm, dry, and intact, without rash, erythema, or lesion. Psych: pleasant, cooperative, normal speech, normal affect, no hallucinations, no dysarthia Objective Data Vital Signs Vital Signs: Vital Signs - 24 hr 01/07/25 15:30 01/07/25 16:34 01/07/25 16:46 Temperature 97.9 F 97.8 F 97.8 F Pulse Rate 58 L 44 L 51 L Respiratory Rate 20 18 20 Blood Pressure 126/68 146/101 H 150/93 H Pulse Oximetry 98 100 97 Oxygen Delivery 01/07/25 17:22 01/07/25 18:05 01/07/25 18:16 Temperature 97.7 F 97.6 F Pulse Rate 56 L 57 L 43 L Respiratory Rate 17 20 14 Blood Pressure 148/98 H 152/96 H 145/93 H Pulse Oximetry 98 97 98 Oxygen Delivery 01/07/25 18:32 01/07/25 18:47 01/07/25 19:22 Temperature 98.3 F Pulse Rate 61 52 L 45 L Respiratory Rate 15 16 15 Blood Pressure 143/106 H 158/103 H 153/79 H Pulse Oximetry 100 99 97 Oxygen Delivery 01/07/25 20:12 01/07/25 20:13 01/07/25 20:30 Temperature 98.8 F Pulse Rate 55 L 55 L Respiratory Rate 16 Blood Pressure 149/87 H Pulse Oximetry 98 Oxygen Delivery Room Air 01/07/25 20:37 01/07/25 21:11 01/07/25 22:00 Temperature 98.8 F Pulse Rate 42 L 55 L 66 Respiratory Rate 16 Blood Pressure 149/87 H Pulse Oximetry 98 Oxygen Delivery 01/07/25 23:39 01/08/25 00:00 01/08/25 00:00 Temperature 98.7 F Pulse Rate 48 L 48 L Respiratory Rate 16 Blood Pressure 133/77 Pulse Oximetry 98 Oxygen Delivery Room Air 01/08/25 02:00 01/08/25 03:33 01/08/25 04:00 Temperature 97.8 F Pulse Rate 45 L 43 L 42 L Respiratory Rate 16 Blood Pressure 150/90 H Pulse Oximetry 100 Oxygen Delivery 01/08/25 04:10 01/08/25 06:00 01/08/25 07:58 Temperature 97.4 F L Pulse Rate 46 L 57 L Respiratory Rate 16 Blood Pressure 142/85 H Pulse Oximetry 100 Oxygen Delivery Room Air 01/08/25 08:00 01/08/25 08:00 01/08/25 10:00 Temperature Pulse Rate 63 45 L Respiratory Rate Blood Pressure Pulse Oximetry 100 Oxygen Delivery Room Air 01/08/25 11:50 01/08/25 11:51 01/08/25 12:00 Temperature 97.7 F Pulse Rate 80 Respiratory Rate 18 Blood Pressure 128/101 H 133/93 H Pulse Oximetry 97 97 Oxygen Delivery Room Air 01/08/25 12:00 Temperature Pulse Rate 51 L Respiratory Rate Blood Pressure Pulse Oximetry Oxygen Delivery Intake/Output Intake/Output: Intake & Output 01/05/25 01/06/25 01/07/25 01/08/25 23:59 23:59 23:59 23:59 Intake Total 1180 Balance 1180 Meds/Results Medications: Active Medications Generic Name Dose Route Start Last Admin Trade Name Freq PRN Reason Stop Dose Admin Acetaminophen 650 mg 01/07/25 17:48 Acetaminophen 325 Mg Tablet PO Q4H PRN Mild Pain (1-3) or Fever Hydrocodone Bitart/Acetaminophen 1 tab 01/07/25 17:48 Hydrocodone/Acetaminophen (*Crx) 5-325 Mg Tablet PO Q4H PRN Pain Rated 4-6 Albuterol 2 puff 01/07/25 21:38 Albuterol Sulfate (*Sp) Aerosol 1 Puff INHALATION Q6HRT PRN cough Buspirone HCl 10 mg 01/07/25 21:38 01/07/25 23:32 Buspirone Hcl 10 Mg Tablet PO 10 mg TID PRN Administration anxiety Enoxaparin Sodium 40 mg 01/08/25 09:00 01/08/25 09:31 Enoxaparin 40 Mg/0.4 Ml Syringe SUB-Q Not Given DAILY JOAQUIN Loratadine 10 mg 01/08/25 09:00 01/08/25 09:31 Loratadine 10 Mg Tablet PO Not Given QAM [facility] Ondansetron HCl 4 mg 01/07/25 17:48 Ondansetron Inj 4 Mg/2 Ml Vial IV PUSH Q4H PRN Nausea Perflutren Lipid Microsphere 0 ml 01/08/25 07:48 Perflutren Lipid Microspheres 1.5 Ml Vial Diluted To 10 Ml Total Volume IV PUSH 01/11/25 07:48 ONCE PRN adequate visualization Protocol Radiology Results: ITS Impressions Chest X-Ray 01/07/25 14:28 IMPRESSION: 1: NO ACUTE CARDIOPULMONARY DISEASE. Chest CTA 01/07/25 16:10 IMPRESSION: 1. No pulmonary embolism. 2. No acute cardiopulmonary pathology. 3. Fat infiltration of the liver. 4. Fullness of the right renal pelvis. Further evaluation advised. Labs Labs: Laboratory Results - last 24 hr 01/07/25 01/08/25 21:01 00:09 Troponin I < 0.012 < 0.012 Quality VTE Prophylaxis VTE prophylaxis: mechanical ordered and pharmacologic ordered
--- NOTE | 2025-01-08 15:14 | P.CONCA_ITS ---
Assessment and Plan Assessment and plan (1) Chest pain: Code(s): R07.9 - Chest pain, unspecified Status: Acute Assessment and Plan: Chest pain is atypical. It does not always occur with the same amount of exertion. At time she has no chest pain with exertion. It also lasts for short period of time. It on last for a few seconds and improves. It is atypical in nature. Offered outpatient stress testing or further evaluation but she does have some elevated blood pressure and wishes to have further testing as an inpatient. 2D echocardiogram with Doppler is ordered and will be reviewed. Offer definitive evaluation via a coronary angiogram versus stress testing. At this point, she is willing to proceed with a stress test and will therefore will order an exercise myocardial perfusion study on Friday. In the meantime aspirin 81 mg p.o. daily, rosuvastatin 10 mg daily will be started. Also for her elevated blood pressure will initiate losartan 25 mg daily. (2) Bradycardia: Code(s): R00.1 - Bradycardia, unspecified Status: Acute Assessment and Plan: Avoid beta-rachelle. Will also evaluate for chronotropic competence by having her exercise on the treadmill (3) Anxiety: Code(s): F41.9 - Anxiety disorder, unspecified Status: Acute Assessment and Plan: On BuSpar (4) Hyperlipidemia: Code(s): E78.5 - Hyperlipidemia, unspecified Status: Acute Assessment and Plan: Will add a statin (5) Hypertension: Code(s): I10 - Essential (primary) hypertension Status: Acute Assessment and Plan: Starting losartan as detailed above History of Present Illness History of Present Illness Consult date/time: 01/08/25 15:14 Requesting physician: Shasta Messer APRN Consult reason: chest pain Reason For Visit: chest pain, angina Narrative: Reason for consultation: Chest pain Date of service 01/08/2025 Requesting provider: Shasta Messer History patient is a 69-year-old female who does not have known cardiac history. She does have some shortness of breath. She thinks that shortness breath has been a long-time problem doing things such as climbing up steps. But over the past couple months, her shortness of breath seems to be coming more frequent. It generally does occur with exertion but not always the same amount of exertion makes her short of breath. Also the past 1-2 months she has had a little bit of chest pressure that occurs with shortness of breath. It does not radiate. She has no associated nausea or diaphoresis. Chest pressure last for a few seconds and less than 30 seconds for sure and she takes some deep breaths and her symptoms improve. She has had some mild lower extremity edema over the past 6 months which is dependent in nature. Otherwise no syncope, presyncope, paroxysmal nocturnal dyspnea, orthopnea, palpitations. She went to her primary care provider an EKG was performed which was abnormal and she had a D-dimer which was positive and therefore she was sent to the ER for further evaluation. CTA was negative for pulmonary embolism. She was therefore admitted for chest pain, rule out MA Review of Systems 2 Review of Systems: All systems reviewed & are unremarkable except as noted in HPI and below Constitutional: Constitutional: Denies body ache(s) Eyes: Eyes: Denies blurry vision ENT: Reports Normal hearing present Cardiovascular: Cardiovascular: Reports chest pain Respiratory: Respiratory: Reports dyspnea on exertion Gastrointestinal: Gastrointestinal: Denies abdominal pain Genitourinary: Genitourinary: Denies hematuria Musculoskeletal: Musculoskeletal: Denies back pain Integumentary/Breasts: Skin/Breast: Denies skin pain Neurologic: Denies Abnormal speech present Psychiatric: Psychiatric: Denies behavioral changes Endocrine: Endocrine: Denies excessive sweating Hematologic/Lymphatic: Hematologic/Lymphatic: Denies easy bleeding Allergic/Immunologic: Allergic/Immunologic: Denies GI upset with certain foods PMFSH Past Medical History Medical History (Updated 01/08/25 @ 15:19 by Mike Bowens MD) Hypertension Hyperlipidemia Change in bowel habits Abdominal cramping Chronic diarrhea Dysphonia Chronic cough Osteopenia Insomnia Allergies History of patellar fracture History of wrist fracture Arthritis Anxiety Urinary frequency Wears glasses Pes planovalgus, acquired Posterior tibial tendinitis of right lower extremity Surgical History Surgical History History of surgery on wrist H/O knee surgery History of loop electrical excision procedure (LEEP) History of 2 Family History Family History Mother Family history of obesity Diabetes mellitus Hypertension Depression Heart disease Father Family history of malignant neoplasm Patient's father is Alcoholism Lung cancer Brain cancer Skin cancer Throat cancer Sibling Alcoholism Depression Grandparent Hypertension Other Arthritis Social History Social History Social History: Caffeine-tea Smoking status: Never smoker Alcohol intake: current Drinks per week: 7 Alcohol use details: beer Substance use: current Substance use type: marijuana Other substance usage details: edible mints Last use: 2 months Do You Feel Safe in your Home?: Yes Lack of Transportation: No Lack of Food: Never True Current Housing: I Have Housing Concerned About Future Housing: No Difficulty Paying Gas/Electric Bills: No Difficulty Paying for Meds: No Currently Unemployed: No Education: High School Diploma/GED Difficulty w/ Childcare or Family Care: No Living arrangements: with family Spiritual care concerns: No Meds Home Medications and Allergies Home Medications ?Medication ?Instructions ?Recorded ?Confirmed ?Type lactobacillus combination no.9 4 4,000 mmu cells PO DAILY 10/10/21 01/07/25 History billion cell capsule (Adult 50 Plus Probiotic) cholecalciferol (vitamin D3) 25 25 mcg PO DAILY 03/21/23 01/07/25 History mcg (1,000 unit) chewable tablet (Vitamin D3) pyridoxine (vitamin B6) 100 mg 100 mg PO DAILY 03/21/23 01/07/25 History tablet ginkgo biloba 40 mg tablet 40 mg PO DAILY 09/10/23 01/07/25 History Calcium 600 mg PO BID 05/19/24 01/07/25 History fluticasone propionate 50 2 spray intranasal DAILY 05/19/24 01/07/25 History mcg/actuation nasal spray,suspension magnesium 320 mg PO HS 05/19/24 01/07/25 History buspirone 10 mg tablet 10 mg PO TID PRN anxiety #90 tabs 09/06/24 01/07/25 Rx cetirizine 10 mg tablet (Zyrtec) 10 mg PO DAILY 09/06/24 01/07/25 History mecobalamin (vitamin B12) 1 tablet PO DAILY 09/06/24 01/07/25 History vit A,C and P-jucluk-sibgbmzh 2 tablet PO DAILY 09/06/24 01/07/25 History Vital proteins collegen powder See Rx Instructions PO .COMPLEX 01/07/25 01/07/25 History albuterol sulfate 90 mcg/actuation 2 puff inhalation Q6H PRN cough 01/07/25 01/07/25 History aerosol inhaler Allergies Allergy/AdvReac Type Severity Reaction Status Date / Time morphine Allergy Mild Swelling Verified 01/07/25 10:10 Vital Signs Vital Signs - 24 hr 01/07/25 15:30 01/07/25 16:34 01/07/25 16:46 Temperature 36.6 C 36.6 C 36.6 C Pulse Rate 58 L 44 L 51 L Respiratory Rate 20 18 20 Blood Pressure 126/68 146/101 H 150/93 H Pulse Oximetry 98 100 97 Oxygen Delivery 01/07/25 17:22 01/07/25 18:05 01/07/25 18:16 Temperature 36.5 C 36.4 C Pulse Rate 56 L 57 L 43 L Respiratory Rate 17 20 14 Blood Pressure 148/98 H 152/96 H 145/93 H Pulse Oximetry 98 97 98 Oxygen Delivery 01/07/25 18:32 01/07/25 18:47 01/07/25 19:22 Temperature 36.8 C Pulse Rate 61 52 L 45 L Respiratory Rate 15 16 15 Blood Pressure 143/106 H 158/103 H 153/79 H Pulse Oximetry 100 99 97 Oxygen Delivery 01/07/25 20:12 01/07/25 20:13 01/07/25 20:30 Temperature 37.1 C Pulse Rate 55 L 55 L Respiratory Rate 16 Blood Pressure 149/87 H Pulse Oximetry 98 Oxygen Delivery Room Air 01/07/25 20:37 01/07/25 21:11 01/07/25 22:00 Temperature 37.1 C Pulse Rate 42 L 55 L 66 Respiratory Rate 16 Blood Pressure 149/87 H Pulse Oximetry 98 Oxygen Delivery 01/07/25 23:39 01/08/25 00:00 01/08/25 00:00 Temperature 37.1 C Pulse Rate 48 L 48 L Respiratory Rate 16 Blood Pressure 133/77 Pulse Oximetry 98 Oxygen Delivery Room Air 01/08/25 02:00 01/08/25 03:33 01/08/25 04:00 Temperature 36.6 C Pulse Rate 45 L 43 L 42 L Respiratory Rate 16 Blood Pressure 150/90 H Pulse Oximetry 100 Oxygen Delivery 01/08/25 04:10 01/08/25 06:00 01/08/25 07:58 Temperature 36.3 C L Pulse Rate 46 L 57 L Respiratory Rate 16 Blood Pressure 142/85 H Pulse Oximetry 100 Oxygen Delivery Room Air 01/08/25 08:00 01/08/25 08:00 01/08/25 10:00 Temperature Pulse Rate 63 45 L Respiratory Rate Blood Pressure Pulse Oximetry 100 Oxygen Delivery Room Air 01/08/25 11:50 01/08/25 11:51 01/08/25 12:00 Temperature 36.5 C Pulse Rate 80 Respiratory Rate 18 Blood Pressure 128/101 H 133/93 H Pulse Oximetry 97 97 Oxygen Delivery Room Air 01/08/25 12:00 Temperature Pulse Rate 51 L Respiratory Rate Blood Pressure Pulse Oximetry Oxygen Delivery Exam 2 Narrative: Alert oriented appears stated age Const: General: comfortable and no acute distress HENMT: Ears: TM's normal bilaterally Face/Nose/Sinus: Normal nares present Eyes: General: appearance normal, both eyes and all related structures S clera: sclerae normal Neck: Neck: supple and no JVD Thyroid: thyroid normal Chest: Other: No reproducible chest wall pain to palpation Resp: Effort & Inspection: normal respiratory effort Auscultation: clear to auscultation bilaterally Cardio: Rate: regular rate Rhythm: regular rhythm Heart sounds: no murmurs GI: Inspection: non-distended GI Palp: Yes Soft to palpation A uscultation: normal bowel sounds Skin: General skin exam: normal color and no rashes or lesions noted Neuro: General: gait normal Speech: normal speech Sensory Exam: normal sensation Extrem: General: normal to inspection Psych: Mental Status: mental status grossly normal Affect: normal affect Results Labs and Meds 01/07/25 13:34 01/07/25 13:35 Lab results: Cardiac Enzymes 01/07/25 01/08/25 Range/Units 21:01 00:09 Troponin I < 0.012 < 0.012 (0.000-0.034) ng/mL Intake and Output 01/07/25 01/08/25 01/08/25 23:59 07:59 15:59 Intake Total 700 480 Balance 700 480 Intake: Oral 700 480 Other: # Unmeasured Voids 1 2 # Incontinent Voids 0 Patient Weight 01/08/25 23:59 Weight 65.1 kg EKG personally reviewed and independently interpreted showing incomplete right bundle-branch block, nondiagnostic ST segment depression in lateral leads, left axis deviation. Abnormal ECG
[2025-01-08] MEDS: LOSARTAN POTASSIUM 25 MG TABLET PO (16:14)
[2025-01-08] MEDS: busPIRone HCL 10 MG TABLET PO (20:35)
[2025-01-09] VITALS (19 sets, daily range): BP systolic 102–145; BP diastolic 73–85; PULSE 41–82; RESP 14–18; TEMP 36.4–36.6; O2SAT 98–100
[2025-01-09 04:15] LABS: Basophils Percent Auto 0.8 % (0.2-1.2); Eosinophils Absolute Auto 0.2 K/mm3 (0-0.3); Eosinophils Percent Auto 3.2 % (0-4.4); Hemoglobin 13.8 g/dL (12.0-15.0); Immature Granulocyte Absolute 0.01 K/mm3 (0.00-0.031); Immature Granulocyte Percent A 0.2 % (0-0.5); Lymphocytes Absolute Auto 2.23 K/mm3 (0.9-3.2); Lymphocytes Percent Auto 47.3 % (18.3-44.2); Mean Corpuscular HGB Conc 33.7 g/dl (32-36); Mean Corpuscular Hemoglobin 30.4 pg (26-34); Mean Corpuscular Volume 90.3 fl (80-100); Monocytes Absolute Auto 0.3 K/mm3 (0.1-0.6); Neutrophils Percent Auto 41.5 % (45.5-73.1); Platelet Count Result 227 k/mm3 (150-375); Red Blood Count 4.54 M/mm3 (4.2-5.4); Red Cell Distribution Width 12.5 % (11.5-14.5); White Blood Count 4.7 K/mm3 (4.5-10.0)
[2025-01-09 04:28] LABS: Alanine Aminotransferase 28 U/L (6-35); Albumin Level 4.1 g/dL (3.5-5.1); Alkaline Phosphatase 55 U/L (38-126); Anion Gap 9 mmol/L (4-12); Aspartate Amino Transferase 40 U/L (14-36); Bilirubin,Total 0.7 mg/dL (0.2-1.3); Blood Urea Nitrogen 21 mg/dL (7-17); Calcium 9.4 mg/dL (8.4-10.2); Carbon Dioxide 23 mmol/L (22-30); Chloride 106 mmol/L (98-107); Estimated CRCL calculation 55 ml/min; Estimated Glomerular Filt Rate > 60; Glucose 86 mg/dL (65-110); Potassium 3.7 mmol/L (3.4-5.0); Sodium 138 mmol/L (137-145)
[2025-01-09 04:40] LABS: Troponin I < 0.012 ng/mL (0.000-0.034)
[2025-01-09] MEDS: LOSARTAN POTASSIUM 25 MG TABLET PO (09:43)
[2025-01-09] MEDS: ASPIRIN 81 MG ENTERIC TABLET PO (09:43)
[2025-01-09] MEDS: ROSUVASTATIN 10 MG TABLET PO (09:43)
--- NOTE | 2025-01-09 11:47 | PM.PNCARD ---
Progress Note: A&P Assessment and Plan (1) Chest pain: Code(s): R07.9 - Chest pain, unspecified Status: Acute Assessment and Plan: Chest pain is atypical. It does not always occur with the same amount of exertion. At time she has no chest pain with exertion. It also lasts for short period of time. It on last for a few seconds and improves. It is atypical in nature. Exercise myocardial perfusion study tomorrow. Continue aspirin, rosuvastatin and losartan (2) Bradycardia: Code(s): R00.1 - Bradycardia, unspecified Status: Acute Assessment and Plan: Avoid beta-archelle. Will also evaluate for chronotropic competence by having her exercise on the treadmill (3) Anxiety: Code(s): F41.9 - Anxiety disorder, unspecified Status: Acute Assessment and Plan: On BuSpar (4) Hyperlipidemia: Code(s): E78.5 - Hyperlipidemia, unspecified Status: Acute Assessment and Plan: Started statin (5) Hypertension: Code(s): I10 - Essential (primary) hypertension Status: Acute Assessment and Plan: On losartan. Blood pressure is controlled (6) Ascending aorta enlargement: Code(s): I77.89 - Other specified disorders of arteries and arterioles Status: Acute Assessment and Plan: Measured 3.9-4.0 cm. Optimize blood pressure control and cholesterol control. Continue losartan and statin Subjective Date/time seen: 01/09/25 11:47 Interval history: 69-year-old admitted for chest pain, shortness of breath with exertion Date of service 01/09/2025: Feels well. No chest pain, shortness of breath. Review of Systems Review of Systems: All systems reviewed & are unremarkable except as noted in HPI and below Constitutional: Constitutional: Denies body ache(s) and Denies excessive sweating Eyes: Eyes: Denies blurry vision ENT: Reports Normal hearing present Cardiovascular: Cardiovascular: Reports chest pain and Reports dyspnea on exertion Respiratory: Respiratory: Reports dyspnea on exertion Gastrointestinal: Gastrointestinal: Denies abdominal pain Genitourinary: Genitourinary: Denies hematuria Musculoskeletal: Musculoskeletal: Denies back pain Integumentary/Breasts: Skin/Breast: Denies skin pain Neurologic: Reports Normal hearing present, Denies Abnormal speech present and Denies behavioral changes Psychiatric: Psychiatric: Denies behavioral changes Endocrine: Endocrine: Denies excessive sweating Hematologic/Lymphatic: Hematologic/Lymphatic: Denies easy bleeding Allergic/Immunologic: Allergic/Immunologic: Denies GI upset with certain foods Exam Narrative: Alert oriented appears stated age Const: General: comfortable and no acute distress HENMT: Ears: TM's normal bilaterally Face/Nose/Sinus: Normal nares present Eyes: General: appearance normal, both eyes and all related structures Sclera: sclerae normal Neck: Neck: supple and no JVD Thyroid: thyroid normal Chest: Other: No reproducible chest wall pain to palpation Resp: Effort & Inspection: normal respiratory effort Auscultation: clear to auscultation bilaterally Cardio: Rate: regular rate Rhythm: regular rhythm Heart sounds: no murmurs GI: Inspection: non-distended Auscultation: normal bowel sounds Skin: General skin exam: normal color and no rashes or lesions noted Neuro: General: gait normal Cranial nerves: Yes Normal hearing present Speech: normal speech and No Abnormal speech present Sensory Exam: normal sensation Extrem: General: normal to inspection Psych: Mental Status: mental status grossly normal Affect: normal affect Objective Data Vital Signs Vital Signs: Vital Signs - 24 hr 01/08/25 11:50 01/08/25 11:51 01/08/25 12:00 Temperature 36.5 C Pulse Rate 80 Respiratory Rate 18 Blood Pressure 128/101 H 133/93 H Pulse Oximetry 97 97 Oxygen Delivery Room Air 01/08/25 12:00 01/08/25 14:00 01/08/25 16:00 Temperature Pulse Rate 51 L 54 L Respiratory Rate Blood Pressure Pulse Oximetry 98 Oxygen Delivery Room Air 01/08/25 16:00 01/08/25 16:33 01/08/25 18:00 Temperature 36.7 C Pulse Rate 48 L 61 77 Respiratory Rate 18 Blood Pressure 141/88 H Pulse Oximetry 98 Oxygen Delivery 01/08/25 18:26 01/08/25 20:00 01/08/25 20:00 Temperature 36.7 C 36.7 C Pulse Rate 50 L 50 L 63 Respiratory Rate 18 18 Blood Pressure 133/81 133/81 Pulse Oximetry 98 98 Oxygen Delivery 01/08/25 20:30 01/08/25 22:00 01/08/25 23:23 Temperature 36.9 C Pulse Rate 44 L 77 Respiratory Rate 18 Blood Pressure 134/80 Pulse Oximetry 92 Oxygen Delivery Room Air 01/09/25 00:00 01/09/25 00:10 01/09/25 02:00 Temperature Pulse Rate 41 L 47 L Respiratory Rate Blood Pressure Pulse Oximetry Oxygen Delivery Room Air 01/09/25 03:49 01/09/25 04:00 01/09/25 04:05 Temperature 36.4 C Pulse Rate 48 L 43 L Respiratory Rate 18 Blood Pressure 102/74 Pulse Oximetry 100 Oxygen Delivery Room Air 01/09/25 06:00 01/09/25 07:36 01/09/25 08:00 Temperature 36.5 C Pulse Rate 44 L 66 Respiratory Rate 14 Blood Pressure 130/78 Pulse Oximetry 100 100 Oxygen Delivery Room Air 01/09/25 08:00 01/09/25 10:00 Temperature Pulse Rate 53 L 82 Respiratory Rate Blood Pressure Pulse Oximetry Oxygen Delivery Intake/Output Intake/Output: Intake & Output 01/06/25 01/07/25 01/08/25 01/09/25 23:59 23:59 23:59 23:59 Intake Total 2180 Balance 2180 Meds/Results Medications: Active Medications Generic Name Dose Route Start Last Admin Trade Name Freq PRN Reason Stop Dose Admin Acetaminophen 650 mg 01/07/25 17:48 Acetaminophen 325 Mg Tablet PO Q4H PRN Mild Pain (1-3) or Fever Hydrocodone Bitart/Acetaminophen 1 tab 01/07/25 17:48 Hydrocodone/Acetaminophen (*Crx) 5-325 Mg Tablet PO Q4H PRN Pain Rated 4-6 Albuterol 2 puff 01/07/25 21:38 Albuterol Sulfate (*Sp) Aerosol 1 Puff INHALATION Q6HRT PRN cough Aspirin 81 mg 01/09/25 09:00 01/09/25 09:43 Aspirin 81 Mg Enteric Tablet PO 81 mg QAM JOAQUIN Administration Buspirone HCl 10 mg 01/07/25 21:38 01/08/25 20:35 Buspirone Hcl 10 Mg Tablet PO 10 mg TID PRN Administration anxiety Enoxaparin Sodium 40 mg 01/08/25 09:00 01/09/25 09:43 Enoxaparin 40 Mg/0.4 Ml Syringe SUB-Q Not Given DAILY JOAQUIN Loratadine 10 mg 01/08/25 09:00 01/09/25 09:43 Loratadine 10 Mg Tablet PO Not Given QAM JOAQUIN Losartan Potassium 25 mg 01/08/25 15:25 01/09/25 09:43 Losartan Potassium 25 Mg Tablet PO 25 mg DAILY JOAQUIN Administration Ondansetron HCl 4 mg 01/07/25 17:48 Ondansetron Inj 4 Mg/2 Ml Vial IV PUSH Q4H PRN Nausea Perflutren Lipid Microsphere 0 ml 01/08/25 07:48 Perflutren Lipid Microspheres 1.5 Ml Vial Diluted To 10 Ml Total Volume IV PUSH 01/11/25 07:48 ONCE PRN adequate visualization Protocol Rosuvastatin Calcium 10 mg 01/09/25 09:00 01/09/25 09:43 Rosuvastatin 10 Mg Tablet PO 10 mg QAM JOAQUIN Administration Radiology Results: ITS Impressions Chest X-Ray 01/07/25 14:28 IMPRESSION: 1: NO ACUTE CARDIOPULMONARY DISEASE. Chest CTA 01/07/25 16:10 IMPRESSION: 1. No pulmonary embolism. 2. No acute cardiopulmonary pathology. 3. Fat infiltration of the liver. 4. Fullness of the right renal pelvis. Further evaluation advised. Labs Labs: Laboratory Results - last 24 hr 01/09/25 03:50 WBC 4.7 RBC 4.54 Hgb 13.8 Hct 41.0 MCV 90.3 MCH 30.4 MCHC 33.7 RDW 12.5 Plt Count 227 MPV 10.0 Immature Gran % (Auto) 0.2 Neut % (Auto) 41.5 L Lymph % (Auto) 47.3 H [place] % (Auto) 7.0 Eos % (Auto) 3.2 Baso % (Auto) 0.8 Lymph # (Auto) 2.23 [place] # (Auto) 0.3 Eos # (Auto) 0.2 Baso # (Auto) 0.0 Abs Immat Gran (auto) 0.01 Absolute Neuts (auto) 2.0 Absolute Nucleated RBC 0.000 Nucleated RBC % 0.0 Sodium 138 Potassium 3.7 Chloride 106 Carbon Dioxide 23 Anion Gap 9 BUN 21 H Creatinine 0.85 Estim Creat Clear Calc 55 Estimated GFR > 60 Glucose 86 Calcium 9.4 Magnesium 2.0 Total Bilirubin 0.7 AST 40 H ALT 28 Alkaline Phosphatase 55 Troponin I < 0.012 Total Protein 7.0 Albumin 4.1 Echocardiogram 2. Left ventricular chamber dimension is normal. 3. Left ventricular systolic function is normal, estimated at 65-70. 4. There is mildly increased left ventricular wall thickness. 5. The left ventricular diastolic function is grade II diastolic dysfunction. 6. Left atrial chamber dimension is mildly enlarged. 7. Right atrial chamber dimension is mildly enlarged. 8. There is mild to moderate aortic valve regurgitation. 9. There is mild mitral valve regurgitation. 10. There is mild tricuspid valve regurgitation. 11. The prox ascending aorta size is mildly dilated.
--- NOTE | 2025-01-09 13:02 | P.PNIM_ITS ---
Progress Note: A&P Assessment and Plan (1) Chest pain: Code(s): R07.9 - Chest pain, unspecified Status: Acute Assessment and Plan: Now chest pain free Troponin negative, ECHO showed normal left ventricular function Cardiology following (2) Anxiety: Code(s): F41.9 - Anxiety disorder, unspecified Status: Acute Assessment and Plan: Well controlled Continue buspirone (3) Bradycardia: Code(s): R00.1 - Bradycardia, unspecified Status: Acute Assessment and Plan: Asymptomatic Telemetry monitoring cardiology consulted ECHO pending monitor on telemetry (4) Shortness of breath: Code(s): R06.02 - Shortness of breath Status: Acute Assessment and Plan: Chest x-ray shows no acute process Patient not requiring oxygen Continue home inhaler rule out ACS Plan DVT prophylaxis on Lovenox Subjective Date/time seen: 01/09/25 13:02 Interval history: Comfortbale at bedside For Stress test tomorrow Review of Systems Review of Systems: 12 systems were reviewed and are negativ e except for as per HPI. Exam Narrative: General: well appearing, appears stated age. HEENT: normocephalic, atraumatic. Mucous membranes moist. EOMI, PERRLA, bilateral sclera anicteric, no conjunctival injection. Neck supple without JVD, lymphadenopathy, or bruit. Respiratory: clear to ascultation bilaterally. No rales/rhonic/wheezes. Cardiovascular: Regular rate and rhythm, normal S1-S2 upon ascultation. No murmurs, rubs, or clicks. PMI is nondisplaced, capillary refill less than 3 second. Abdomen: Soft, round, no pulsatile masses, nondistended and nontender. No rebound, no guarding. No CVA tenderness, no hepatosplenomegaly. Bowel sounds present to all four quadrants. No high pitch or tinkling sounds, resonant to percussion. Extremities: No cyanosis, clubbing, or edema present. Pulses are palpable 2/2. Active ROM to all four extremities. Neuro: Alert and orientated x 4. PERRLA. Cranial nerves 2-12 intact without focal deficit. Skin: Warm, dry, and intact, without rash, erythema, or lesion. Psych: pleasant, cooperative, normal speech, normal affect, no hallucinations, no dysarthia Objective Data Vital Signs Vital Signs: Vital Signs - 24 hr 01/08/25 14:00 01/08/25 16:00 01/08/25 16:00 Temperature Pulse Rate 54 L 48 L Respiratory Rate Blood Pressure Pulse Oximetry 98 Oxygen Delivery Room Air 01/08/25 16:33 01/08/25 18:00 01/08/25 18:26 Temperature 98.1 F 98.1 F Pulse Rate 61 77 50 L Respiratory Rate 18 18 Blood Pressure 141/88 H 133/81 Pulse Oximetry 98 98 Oxygen Delivery 01/08/25 20:00 01/08/25 20:00 01/08/25 20:30 Temperature 98.1 F Pulse Rate 50 L 63 Respiratory Rate 18 Blood Pressure 133/81 Pulse Oximetry 98 Oxygen Delivery Room Air 01/08/25 22:00 01/08/25 23:23 01/09/25 00:00 Temperature 98.4 F Pulse Rate 44 L 77 41 L Respiratory Rate 18 Blood Pressure 134/80 Pulse Oximetry 92 Oxygen Delivery 01/09/25 00:10 01/09/25 02:00 01/09/25 03:49 Temperature 97.6 F Pulse Rate 47 L 48 L Respiratory Rate 18 Blood Pressure 102/74 Pulse Oximetry 100 Oxygen Delivery Room Air 01/09/25 04:00 01/09/25 04:05 01/09/25 06:00 Temperature Pulse Rate 43 L 44 L Respiratory Rate Blood Pressure Pulse Oximetry Oxygen Delivery Room Air 01/09/25 07:36 01/09/25 08:00 01/09/25 08:00 Temperature 97.7 F Pulse Rate 66 53 L Respiratory Rate 14 Blood Pressure 130/78 Pulse Oximetry 100 100 Oxygen Delivery Room Air 01/09/25 10:00 01/09/25 11:54 Temperature Pulse Rate 82 57 L Respiratory Rate 18 Blood Pressure 145/83 H Pulse Oximetry 99 Oxygen Delivery Intake/Output Intake/Output: Intake & Output 01/06/25 01/07/25 01/08/25 01/09/25 23:59 23:59 23:59 23:59 Intake Total 2180 240 Balance 2180 240 Meds/Results Medications: Active Medications Generic Name Dose Route Start Last Admin Trade Name Freq PRN Reason Stop Dose Admin Acetaminophen 650 mg 01/07/25 17:48 Acetaminophen 325 Mg Tablet PO Q4H PRN Mild Pain (1-3) or Fever Hydrocodone Bitart/Acetaminophen 1 tab 01/07/25 17:48 Hydrocodone/Acetaminophen (*Crx) 5-325 Mg Tablet PO Q4H PRN Pain Rated 4-6 Albuterol 2 puff 01/07/25 21:38 Albuterol Sulfate (*Sp) Aerosol 1 Puff INHALATION Q6HRT PRN cough Aspirin 81 mg 01/09/25 09:00 01/09/25 09:43 Aspirin 81 Mg Enteric Tablet PO 81 mg QAM JOAQUIN Administration Buspirone HCl 10 mg 01/07/25 21:38 01/08/25 20:35 Buspirone Hcl 10 Mg Tablet PO 10 mg TID PRN Administration anxiety Enoxaparin Sodium 40 mg 01/08/25 09:00 01/09/25 09:43 Enoxaparin 40 Mg/0.4 Ml Syringe SUB-Q Not Given DAILY JOAQUIN Loratadine 10 mg 01/08/25 09:00 01/09/25 09:43 Loratadine 10 Mg Tablet PO Not Given QAM JOAQUIN Losartan Potassium 25 mg 01/08/25 15:25 01/09/25 09:43 Losartan Potassium 25 Mg Tablet PO 25 mg DAILY JOAQUIN Administration Ondansetron HCl 4 mg 01/07/25 17:48 Ondansetron Inj 4 Mg/2 Ml Vial IV PUSH Q4H PRN Nausea Perflutren Lipid Microsphere 0 ml 01/08/25 07:48 Perflutren Lipid Microspheres 1.5 Ml Vial Diluted To 10 Ml Total Volume IV PUSH 01/11/25 07:48 ONCE PRN adequate visualization Protocol Rosuvastatin Calcium 10 mg 01/09/25 09:00 01/09/25 09:43 Rosuvastatin 10 Mg Tablet PO 10 mg QAM JOAQUIN Administration Radiology Results: ITS Impressions Chest X-Ray 01/07/25 14:28 IMPRESSION: 1: NO ACUTE CARDIOPULMONARY DISEASE. Chest CTA 01/07/25 16:10 IMPRESSION: 1. No pulmonary embolism. 2. No acute cardiopulmonary pathology. 3. Fat infiltration of the liver. 4. Fullness of the right renal pelvis. Further evaluation advised. Labs Labs: Laboratory Results - last 24 hr 01/09/25 03:50 WBC 4.7 RBC 4.54 Hgb 13.8 Hct 41.0 MCV 90.3 MCH 30.4 MCHC 33.7 RDW 12.5 Plt Count 227 MPV 10.0 Immature Gran % (Auto) 0.2 Neut % (Auto) 41.5 L Lymph % (Auto) 47.3 H [place] % (Auto) 7.0 Eos % (Auto) 3.2 Baso % (Auto) 0.8 Lymph # (Auto) 2.23 [place] # (Auto) 0.3 Eos # (Auto) 0.2 Baso # (Auto) 0.0 Abs Immat Gran (auto) 0.01 Absolute Neuts (auto) 2.0 Absolute Nucleated RBC 0.000 Nucleated RBC % 0.0 Sodium 138 Potassium 3.7 Chloride 106 Carbon Dioxide 23 Anion Gap 9 BUN 21 H Creatinine 0.85 Estim Creat Clear Calc 55 Estimated GFR > 60 Glucose 86 Calcium 9.4 Magnesium 2.0 Total Bilirubin 0.7 AST 40 H ALT 28 Alkaline Phosphatase 55 Troponin I < 0.012 Total Protein 7.0 Albumin 4.1 Quality VTE Prophylaxis VTE prophylaxis: mechanical ordered and pharmacologic ordered
[2025-01-09] MEDS: busPIRone HCL 10 MG TABLET PO (20:41)
[2025-01-10] VITALS (17 sets, daily range): BP systolic 110–139; BP diastolic 65–91; PULSE 41–88; RESP 14–18; TEMP 36.4–36.7; O2SAT 99–100
[2025-01-10 04:15] LABS: Basophils Percent Auto 0.8 % (0.2-1.2); Eosinophils Absolute Auto 0.2 K/mm3 (0-0.3); Hematocrit 42.4 % (37.0-47.0); Immature Granulocyte Absolute 0.01 K/mm3 (0.00-0.031); Immature Granulocyte Percent A 0.2 % (0-0.5); Lymphocytes Absolute Auto 2.09 K/mm3 (0.9-3.2); Lymphocytes Percent Auto 42.1 % (18.3-44.2); Mean Corpuscular Hemoglobin 29.9 pg (26-34); Mean Corpuscular Volume 90.4 fl (80-100); Monocytes Absolute Auto 0.4 K/mm3 (0.1-0.6); Neutrophils Absolute Auto 2.3 K/mm3 (1.3-6.7); Neutrophils Percent Auto 46.9 % (45.5-73.1); Platelet Count Result 241 k/mm3 (150-375); Red Blood Count 4.69 M/mm3 (4.2-5.4); Red Cell Distribution Width 12.4 % (11.5-14.5)
[2025-01-10 04:32] LABS: Alanine Aminotransferase 27 U/L (6-35); Albumin Level 4.1 g/dL (3.5-5.1); Alkaline Phosphatase 51 U/L (38-126); Anion Gap 8 mmol/L (4-12); Aspartate Amino Transferase 38 U/L (14-36); Bilirubin,Total 0.5 mg/dL (0.2-1.3); Blood Urea Nitrogen 20 mg/dL (7-17); Calcium 9.6 mg/dL (8.4-10.2); Carbon Dioxide 24 mmol/L (22-30); Chloride 107 mmol/L (98-107); Estimated CRCL calculation 54 ml/min; Estimated Glomerular Filt Rate > 60; Glucose 87 mg/dL (65-110); Potassium 3.8 mmol/L (3.4-5.0); Sodium 139 mmol/L (137-145)
--- NOTE | 2025-01-10 08:00 | EST_ITS ---
Patient Info Name: Lea López Age: 69 years : 1955 Gender: Female Ht: 67 in Wt: 145 lbs BSA: 1.77 m2 Exam Date: 01/10/2025 8:00 AM Patient Status: I Admit Date: 01/08/2025 Exam Type: CA stress test treadmill w NM A nuclear stress test was performed. Staff Referring Physician: Mike Bowens MD Attending Provider: Kumar Hayden Nurse: Leena Cuba Summary 1. Exercise capacity impaired at <6 METS. 2. No abnormal ST-T wave changes with exercise. 3. Please correlate with nuclear medicine images, reported separately. Protocol: C[facility]ar Stress ECG Details Stage: REST Duration (min): 0 min : 44 sec Speed (mph): 0.0 Grade (%): 0 HR (bpm): 41 SBP (mmHg): 125 DBP (mmHg): 90 METS: --- Stage: REST Duration (min): 1 min : 2 sec Speed (mph): 0.0 Grade (%): 0 HR (bpm): 43 SBP (mmHg): 125 DBP (mmHg): 90 METS: --- Stage: REST Duration (min): 6 min : 7 sec Speed (mph): 0.0 Grade (%): 0 HR (bpm): 50 SBP (mmHg): 125 DBP (mmHg): 90 METS: --- Stage: STAGE 1 Duration (min): 1 min : 0 sec Speed (mph): 1.7 Grade (%): 10 HR (bpm): 105 SBP (mmHg): 125 DBP (mmHg): 90 METS: --- Stage: STAGE 1 Duration (min): 2 min : 0 sec Speed (mph): 1.7 Grade (%): 10 HR (bpm): 120 SBP (mmHg): 125 DBP (mmHg): 90 METS: --- Stage: STAGE 1 Duration (min): 3 min : 0 sec Speed (mph): 1.7 Grade (%): 10 HR (bpm): 124 SBP (mmHg): 162 DBP (mmHg): 111 METS: --- Stage: STAGE 2 Duration (min): 0 min : 15 sec Speed (mph): 2.5 Grade (%): 12 HR (bpm): 126 SBP (mmHg): 162 DBP (mmHg): 111 METS: --- Stage: RECOVERY Duration (min): 0 min : 44 sec Speed (mph): 1.5 Grade (%): 0 HR (bpm): 125 SBP (mmHg): 162 DBP (mmHg): 111 METS: --- Stage: RECOVERY Duration (min): 1 min : 44 sec Speed (mph): 0.0 Grade (%): 0 HR (bpm): 93 SBP (mmHg): 162 DBP (mmHg): 111 METS: --- Stage: RECOVERY Duration (min): 2 min : 44 sec Speed (mph): 0.0 Grade (%): 0 HR (bpm): 80 SBP (mmHg): 162 DBP (mmHg): 111 METS: --- Stage: RECOVERY Duration (min): 3 min : 44 sec Speed (mph): 0.0 Grade (%): 0 HR (bpm): 77 SBP (mmHg): 194 DBP (mmHg): 118 METS: --- Stage: RECOVERY Duration (min): 4 min : 44 sec Speed (mph): 0.0 Grade (%): 0 HR (bpm): 85 SBP (mmHg): 165 DBP (mmHg): 119 METS: --- Stage: RECOVERY Duration (min): 5 min : 44 sec Speed (mph): 0.0 Grade (%): 0 HR (bpm): 79 SBP (mmHg): 165 DBP (mmHg): 119 METS: --- Stage: RECOVERY Duration (min): 6 min : 44 sec Speed (mph): 0.0 Grade (%): 0 HR (bpm): 63 SBP (mmHg): 145 DBP (mmHg): 114 METS: --- Stage: RECOVERY Duration (min): 6 min : 46 sec Speed (mph): 0.0 Grade (%): 0 HR (bpm): 64 SBP (mmHg): 145 DBP (mmHg): 114 METS: --- Rest HR: 50 bpm Peak HR: 128 bpm Rest Sys BP: 125 mmHg Peak Sys BP: 194 mmHg Max Pred HR: 153 bpm % Max Pred HR: 84 % Target HR: 130 bpm Max RPP: 24,832 bpm*mmHg Osorio Score: -[address] Seg Deviation: -1.20 mm Total Time: 3 min : 15 sec Rest Summers BP: 90 mmHg Peak Summers BP: 118 mmHg Angina Score: None Total METS: 5.0 Resting ECG Sinus bradycardia with a ventricular rate of 46 beats per minute. Nonspecific ST T wave abnormalities. Stress ECG Sinus tachycardia with ST T wave changes that do not meet ischemic criteria. Arrhythmias Occasional premature atrial contractions. Report Signatures
--- NOTE | 2025-01-10 13:33 | P.PNIM_ITS ---
Progress Note: A&P Assessment and Plan (1) Chest pain: Code(s): R07.9 - Chest pain, unspecified Status: Acute Assessment and Plan: Now chest pain free Troponin negative, ECHO showed normal left ventricular function awaiting stress test today Cardiology following (2) Anxiety: Code(s): F41.9 - Anxiety disorder, unspecified Status: Acute Assessment and Plan: Well controlled Continue buspirone (3) Bradycardia: Code(s): R00.1 - Bradycardia, unspecified Status: Acute Assessment and Plan: Asymptomatic Telemetry monitoring cardiology consulted ECHO normal LV function monitor on telemetry (4) Shortness of breath: Code(s): R06.02 - Shortness of breath Status: Acute Assessment and Plan: Chest x-ray shows no acute process Patient not requiring oxygen Continue home inhaler rule out ACS Plan DVT prophylaxis on Lovenox Subjective Date/time seen: 01/10/25 13:33 Interval history: Comfortable at bedside For Stress test today Review of Systems Review of Systems: 12 systems were reviewed and are negativ e except for as per HPI. Exam Narrative: General: well appearing, appears stated age. HEENT: normocephalic, atraumatic. Mucous membranes moist. EOMI, PERRLA, bilateral sclera anicteric, no conjunctival injection. Neck supple without JVD, lymphadenopathy, or bruit. Respiratory: clear to ascultation bilaterally. No rales/rhonic/wheezes. Cardiovascular: Regular rate and rhythm, normal S1-S2 upon ascultation. No murmurs, rubs, or clicks. PMI is nondisplaced, capillary refill less than 3 second. Abdomen: Soft, round, no pulsatile masses, nondistended and nontender. No rebound, no guarding. No CVA tenderness, no hepatosplenomegaly. Bowel sounds present to all four quadrants. No high pitch or tinkling sounds, resonant to percussion. Extremities: No cyanosis, clubbing, or edema present. Pulses are palpable 2/2. Active ROM to all four extremities. Neuro: Alert and orientated x 4. PERRLA. Cranial nerves 2-12 intact without focal deficit. Skin: Warm, dry, and intact, without rash, erythema, or lesion. Psych: pleasant, cooperative, normal speech, normal affect, no hallucinations, no dysarthia Objective Data Vital Signs Vital Signs: Vital Signs - 24 hr 01/09/25 14:00 01/09/25 15:57 01/09/25 16:00 Temperature 97.8 F Pulse Rate 65 52 L Respiratory Rate 18 Blood Pressure 121/83 Pulse Oximetry 99 99 Oxygen Delivery Room Air 01/09/25 16:00 01/09/25 18:00 01/09/25 19:53 Temperature Pulse Rate 60 59 L Respiratory Rate Blood Pressure Pulse Oximetry 98 Oxygen Delivery Room Air 01/09/25 20:00 01/09/25 20:30 01/09/25 20:34 Temperature 97.8 F Pulse Rate 50 L 48 L Respiratory Rate 18 Blood Pressure 135/85 Pulse Oximetry 98 Oxygen Delivery Room Air 01/09/25 22:00 01/09/25 23:44 01/09/25 23:50 Temperature 97.8 F Pulse Rate 48 L 41 L Respiratory Rate 18 Blood Pressure 123/73 Pulse Oximetry 98 Oxygen Delivery Room Air 01/10/25 00:00 01/10/25 02:00 01/10/25 04:00 Temperature 97.8 F Pulse Rate 49 L 46 L 41 L Respiratory Rate 18 Blood Pressure 121/78 Pulse Oximetry 100 Oxygen Delivery 01/10/25 04:00 01/10/25 04:00 01/10/25 06:00 Temperature Pulse Rate 46 L 44 L Respiratory Rate Blood Pressure Pulse Oximetry Oxygen Delivery Room Air 01/10/25 07:41 01/10/25 08:00 01/10/25 08:00 Temperature 98.1 F Pulse Rate 49 L 47 L Respiratory Rate 14 Blood Pressure 129/81 Pulse Oximetry 100 100 Oxygen Delivery Room Air 01/10/25 10:00 01/10/25 11:25 01/10/25 12:00 Temperature 98 F Pulse Rate 58 L 51 L Respiratory Rate 14 Blood Pressure 110/65 Pulse Oximetry 100 100 Oxygen Delivery Room Air 01/10/25 12:00 Temperature Pulse Rate 45 L Respiratory Rate Blood Pressure Pulse Oximetry Oxygen Delivery Intake/Output Intake/Output: Intake & Output 01/07/25 01/08/25 01/09/25 01/10/25 23:59 23:59 23:59 23:59 Intake Total 2180 1510 Balance 2180 1510 Meds/Results Medications: Active Medications Generic Name Dose Route Start Last Admin Trade Name Freq PRN Reason Stop Dose Admin Acetaminophen 650 mg 01/07/25 17:48 Acetaminophen 325 Mg Tablet PO Q4H PRN Mild Pain (1-3) or Fever Hydrocodone Bitart/Acetaminophen 1 tab 01/07/25 17:48 Hydrocodone/Acetaminophen (*Crx) 5-325 Mg Tablet PO Q4H PRN Pain Rated 4-6 Albuterol 2 puff 01/07/25 21:38 Albuterol Sulfate (*Sp) Aerosol 1 Puff INHALATION Q6HRT PRN cough Aspirin 81 mg 01/09/25 09:00 01/10/25 08:39 Aspirin 81 Mg Enteric Tablet PO Not Given QAM JOAQUIN Buspirone HCl 10 mg 01/07/25 21:38 01/09/25 20:41 Buspirone Hcl 10 Mg Tablet PO 10 mg TID PRN Administration anxiety Enoxaparin Sodium 40 mg 01/08/25 09:00 01/10/25 08:40 Enoxaparin 40 Mg/0.4 Ml Syringe SUB-Q Not Given DAILY JOAQUIN Loratadine 10 mg 01/08/25 09:00 01/10/25 08:40 Loratadine 10 Mg Tablet PO Not Given QAM JOAQUIN Losartan Potassium 25 mg 01/08/25 15:25 01/10/25 08:40 Losartan Potassium 25 Mg Tablet PO Not Given DAILY JOAQUIN Ondansetron HCl 4 mg 01/07/25 17:48 Ondansetron Inj 4 Mg/2 Ml Vial IV PUSH Q4H PRN Nausea Perflutren Lipid Microsphere 0 ml 01/08/25 07:48 Perflutren Lipid Microspheres 1.5 Ml Vial Diluted To 10 Ml Total Volume IV PUSH 05/20/25 07:48 ONCE PRN adequate visualization Protocol Rosuvastatin Calcium 10 mg 01/09/25 09:00 01/10/25 08:40 Rosuvastatin 10 Mg Tablet PO [facility] [place] Results: ITS Impressions Chest X-Ray 01/07/25 14:28 IMPRESSION: 1: NO ACUTE CARDIOPULMONARY DISEASE. Chest CTA 01/07/25 16:10 IMPRESSION: 1. No pulmonary embolism. 2. No acute cardiopulmonary pathology. 3. Fat infiltration of the liver. 4. Fullness of the right renal pelvis. Further evaluation advised. Labs Labs: Laboratory Results - last 24 hr 01/10/25 03:41 WBC 5.0 RBC 4.69 Hgb 14.0 Hct 42.4 MCV 90.4 MCH 29.9 MCHC 33.0 RDW 12.4 Plt Count 241 MPV 10.0 Immature Gran % (Auto) 0.2 Neut % (Auto) 46.9 Lymph % (Auto) 42.1 [place] % (Auto) 7.0 Eos % (Auto) 3.0 Baso % (Auto) 0.8 Lymph # (Auto) 2.09 [place] # (Auto) 0.4 Eos # (Auto) 0.2 Baso # (Auto) 0.0 Abs Immat Gran (auto) 0.01 Absolute Neuts (auto) 2.3 Absolute Nucleated RBC 0.000 Nucleated RBC % 0.0 Sodium 139 Potassium 3.8 Chloride 107 Carbon Dioxide 24 Anion Gap 8 BUN 20 H Creatinine 0.86 Estim Creat Clear Calc 54 Estimated GFR > 60 Glucose 87 Calcium 9.6 Magnesium 2.0 Total Bilirubin 0.5 AST 38 H ALT 27 Alkaline Phosphatase 51 Total Protein 7.0 Albumin 4.1 Quality VTE Prophylaxis VTE prophylaxis: mechanical ordered and pharmacologic ordered
--- NOTE | 2025-01-10 14:48 | P.PNCA_ITS ---
Progress Note: A&P Assessment and Plan (1) Chest pain: Code(s): R07.9 - Chest pain, unspecified Status: Acute Assessment and Plan: Chest pain is atypical. It does not always occur with the same amount of exert ion. At time she has no chest pain with exertion. It also lasts for short period of time. It on last for a few seconds and improves. It is atypical in nature. Exercise myocardial perfusion performed, awaiting results. Continue aspirin, rosuvastatin and losartan (2) Bradycardia: Code(s): R00.1 - Bradycardia, unspecified Status: Acute Assessment and Plan: Avoid beta-rachelle. Will also evaluate for chronotropic competence by having her exercise on the treadmill (3) Anxiety: Code(s): F41.9 - Anxiety disorder, unspecified Status: Acute Assessment and Plan: On BuSpar (4) Hyperlipidemia: Code(s): E78.5 - Hyperlipidemia, unspecified Status: Acute Assessment and Plan: Started statin (5) Hypertension: Code(s): I10 - Essential (primary) hypertension Status: Acute Assessment and Plan: On losartan. Blood pressure is controlled (6) Ascending aorta enlargement: Code(s): I77.89 - Other specified disorders of arteries and arterioles Status: Acute Assessment and Plan: Measured 3.9-4.0 cm. Optimize blood pressure control and cholesterol control. Continue losartan and statin Subjective Date/time seen: 01/10/25 14:48 Interval history: 69-year-old admitted for chest pain, shortness of breath with exertion Date of service 01/09/2025: Feels well. No chest pain, shortness of breath. Date of service 01/10/2025: No complaints today. Review of Systems Review of Systems: All systems reviewed & are unremarkable except as noted in HPI and below Constitutional: Constitutional: Denies body ache(s) and Denies excessive sweating Eyes: Eyes: Denies blurry vision ENT: Reports Normal hearing present Cardiovascular: Cardiovascular: Reports chest pain and Reports dyspnea on exertion Respiratory: Respiratory: Reports dyspnea on exertion Gastrointestinal: Gastrointestinal: Denies abdominal pain Genitourinary: Genitourinary: Denies hematuria Musculoskeletal: Musculoskeletal: Denies back pain Integumentary/Breasts: Skin/Breast: Denies skin pain Neurologic: Reports Normal hearing present, Denies Abnormal speech present and Denies behavioral changes Psychiatric: Psychiatric: Denies behavioral changes Endocrine: Endocrine: Denies excessive sweating Hematologic/Lymphatic: Hematologic/Lymphatic: Denies easy bleeding Allergic/Immunologic: Allergic/Immunologic: Denies GI upset with certain foods Exam Narrative: Alert oriented appears stated age Const: General: comfortable and no acute distress HENMT: Ears: TM's normal bilaterally Face/Nose/Sinus: Normal nares present Eyes: General: appearance normal, both eyes and all related structures Sclera: sclerae normal Neck: Neck: supple and no JVD Thyroid: thyroid normal Chest: Other: No reproducible chest wall pain to palpation Resp: Effort & Inspection: normal respiratory effort Auscultation: clear to auscultation bilaterally Cardio: Rate: regular rate Rhythm: regular rhythm Heart sounds: no murmurs GI: Inspection: non-distended Auscultation: normal bowel sounds Skin: General skin exam: normal color and no rashes or lesions noted Neuro: General: gait normal Cranial nerves: Yes Normal hearing present Speech: normal speech and No Abnormal speech present Sensory Exam: normal sensation Extrem: General: normal to inspection Psych: Mental Status: mental status grossly normal Affect: normal affect Objective Data Vital Signs Vital Signs: Vital Signs - 24 hr 01/09/25 15:57 01/09/25 16:00 01/09/25 16:00 Temperature 36.6 C Pulse Rate 52 L 60 Respiratory Rate 18 Blood Pressure 121/83 Pulse Oximetry 99 99 Oxygen Delivery Room Air 01/09/25 18:00 01/09/25 19:53 01/09/25 20:00 Temperature Pulse Rate 59 L 50 L Respiratory Rate Blood Pressure Pulse Oximetry 98 Oxygen Delivery Room Air 01/09/25 20:30 01/09/25 20:34 01/09/25 22:00 Temperature 36.6 C Pulse Rate 48 L 48 L Respiratory Rate 18 Blood Pressure 135/85 Pulse Oximetry 98 Oxygen Delivery Room Air 01/09/25 23:44 01/09/25 23:50 01/10/25 00:00 Temperature 36.6 C Pulse Rate 41 L 49 L Respiratory Rate 18 Blood Pressure 123/73 Pulse Oximetry 98 Oxygen Delivery Room Air 01/10/25 02:00 01/10/25 04:00 01/10/25 04:00 Temperature 36.6 C Pulse Rate 46 L 41 L Respiratory Rate 18 Blood Pressure 121/78 Pulse Oximetry 100 Oxygen Delivery Room Air 01/10/25 04:00 01/10/25 06:00 01/10/25 07:41 Temperature 36.7 C Pulse Rate 46 L 44 L 49 L Respiratory Rate 14 Blood Pressure 129/81 Pulse Oximetry 100 Oxygen Delivery 01/10/25 08:00 01/10/25 08:00 01/10/25 10:00 Temperature Pulse Rate 47 L 58 L Respiratory Rate Blood Pressure Pulse Oximetry 100 Oxygen Delivery Room Air 01/10/25 11:25 01/10/25 12:00 01/10/25 12:00 Temperature 36.6 C Pulse Rate 51 L 45 L Respiratory Rate 14 Blood Pressure 110/65 Pulse Oximetry 100 100 Oxygen Delivery Room Air 01/10/25 14:00 Temperature Pulse Rate 88 Respiratory Rate Blood Pressure Pulse Oximetry Oxygen Delivery Intake/Output Intake/Output: Intake & Output 01/07/25 01/08/25 01/09/25 01/10/25 23:59 23:59 23:59 23:59 Intake Total 2180 1510 Balance 2180 1510 Meds/Results Medications: Active Medications Generic Name Dose Route Start Last Admin Trade Name Freq PRN Reason Stop Dose Admin Acetaminophen 650 mg 01/07/25 17:48 Acetaminophen 325 Mg Tablet PO Q4H PRN Mild Pain (1-3) or Fever Hydrocodone Bitart/Acetaminophen 1 tab 01/07/25 17:48 Hydrocodone/Acetaminophen (*Crx) 5-325 Mg Tablet PO Q4H PRN Pain Rated 4-6 Albuterol 2 puff 01/07/25 21:38 Albuterol Sulfate (*Sp) Aerosol 1 Puff INHALATION Q6HRT PRN cough Aspirin 81 mg 01/09/25 09:00 01/10/25 08:39 Aspirin 81 Mg Enteric Tablet PO Not Given QAM JOAQUIN Buspirone HCl 10 mg 01/07/25 21:38 01/09/25 20:41 Buspirone Hcl 10 Mg Tablet PO 10 mg TID PRN Administration anxiety Enoxaparin Sodium 40 mg 01/08/25 09:00 01/10/25 08:40 Enoxaparin 40 Mg/0.4 Ml Syringe SUB-Q Not Given DAILY JOAQUIN Loratadine 10 mg 01/08/25 09:00 01/10/25 08:40 Loratadine 10 Mg Tablet PO Not Given QAM [facility] Losartan Potassium 25 mg 01/08/25 15:25 01/10/25 08:40 Losartan Potassium 25 Mg Tablet PO Not Given DAILY [facility] Ondansetron HCl 4 mg 01/07/25 17:48 Ondansetron Inj 4 Mg/2 Ml Vial IV PUSH Q4H PRN Nausea Perflutren Lipid Microsphere 0 ml 01/08/25 07:48 Perflutren Lipid Microspheres 1.5 Ml Vial Diluted To 10 Ml Total Volume IV PUSH 01/11/25 07:48 ONCE PRN adequate visualization Protocol Rosuvastatin Calcium 10 mg 01/09/25 09:00 01/10/25 08:40 Rosuvastatin 10 Mg Tablet PO Not Given QAM [facility] Radiology Results: ITS Impressions Chest X-Ray 01/07/25 14:28 IMPRESSION: 1: NO ACUTE CARDIOPULMONARY DISEASE. Chest CTA 01/07/25 16:10 IMPRESSION: 1. No pulmonary embolism. 2. No acute cardiopulmonary pathology. 3. Fat infiltration of the liver. 4. Fullness of the right renal pelvis. Further evaluation advised. Labs Labs: Laboratory Results - last 24 hr 01/10/25 03:41 WBC 5.0 RBC 4.69 Hgb 14.0 Hct 42.4 MCV 90.4 MCH 29.9 MCHC 33.0 RDW 12.4 Plt Count 241 MPV 10.0 Immature Gran % (Auto) 0.2 Neut % (Auto) 46.9 Lymph % (Auto) 42.1 [place] % (Auto) 7.0 Eos % (Auto) 3.0 Baso % (Auto) 0.8 Lymph # (Auto) 2.09 [place] # (Auto) 0.4 Eos # (Auto) 0.2 Baso # (Auto) 0.0 Abs Immat Gran (auto) 0.01 Absolute Neuts (auto) 2.3 Absolute Nucleated RBC 0.000 Nucleated RBC % 0.0 Sodium 139 Potassium 3.8 Chloride 107 Carbon Dioxide 24 Anion Gap 8 BUN 20 H Creatinine 0.86 Estim Creat Clear Calc 54 Estimated GFR > 60 Glucose 87 Calcium 9.6 Magnesium 2.0 Total Bilirubin 0.5 AST 38 H ALT 27 Alkaline Phosphatase 51 Total Protein 7.0 Albumin 4.1 Quality VTE Prophylaxis VTE prophylaxis: mechanical ordered and pharmacologic ordered
--- NOTE | 2025-01-10 18:49 | PC.NURSE ---
Phoned Leena Cuba NP at 1533 to get diet order for pt returning from stress test. Order given for Heart healthy diet and no order given to D/C pt as results of the stress test had not been reviewed. Phoned Leena Cuba at 1635 to see if stress test has been reviewed and if ok for pt to D/C, no answer. Phoned Dr. Hassan at 1641 to get results of stress test and D/C order. Per Dr. Hassan stress test was normal and no reason for cardiac to continue following pt. Advised no order in chart or note stating pt can be d/c from cardiology pending results. Dr. Hasasn stated he would reach out to Leena Cuba to have order placed as she conducted test. No order received and call Dr. Morin at 1645 to request d/c order, Dr. Koenig stated he will need to see note from Cardiology saying pt can d/c before placing order. No order received at [address] Morin to reach out to Cardiology for order. Called placed back to Dr. Morin for d/c order and Dr. Morin stated he will place d/c order after reviewing pts chart from stress test. Received call from Dr. Morin stating he is not comfortable d/c pt at this time as the results of her exercise test showed abnormal numbers and he would like for Cardiology to speak with pt about results and give ok to d/c. Spoke with pt and informed of no order to d/c pending review of stress test from Cardiology. Pt v/david Kelly RN
[2025-01-10] MEDS: busPIRone HCL 10 MG TABLET PO (20:40)
[2025-01-11] VITALS: BP 111/77; PULSE 41; PULSE 49; RESP 16; TEMP 36.6; O2SAT 100
[2025-01-11 02:00] VITALS: PULSE 49
[2025-01-11 04:00] VITALS: BP 115/60; PULSE 43; PULSE 46; RESP 16; TEMP 36.6; O2SAT 97
[2025-01-11 06:00] VITALS: PULSE 54
--- NOTE | 2025-01-11 07:31 | P.PNIM_ITS ---
Progress Note: A&P Assessment and Plan (1) Chest pain: Code(s): R07.9 - Chest pain, unspecified Status: Acute Assessment and Plan: Now chest pain free Troponin negative, ECHO showed normal left ventricular function Reviewed stress test and myocardial perfusion Cardiology following (2) Anxiety: Code(s): F41.9 - Anxiety disorder, unspecified Status: Acute Assessment and Plan: Well controlled Continue buspirone (3) Bradycardia: Code(s): R00.1 - Bradycardia, unspecified Status: Acute Assessment and Plan: Asymptomatic Telemetry monitoring cardiology consulted ECHO normal LV function monitor on telemetry (4) Shortness of breath: Code(s): R06.02 - Shortness of breath Status: Acute Assessment and Plan: Chest x-ray shows no acute process Patient not requiring oxygen Continue home inhaler rule out ACS Plan DVT prophylaxis on Lovenox Subjective Date/time seen: 01/11/25 07:31 Interval history: Patient underwent stress test which shows no abnormal ST-T wave changes with exercise. Normal myocardial perfusion at rest and during the stress. Patient is still bradycardic in 40-50 Review of Systems Review of Systems: 12 systems were reviewed and are negativ e except for as per HPI. Exam Narrative: General: well appearing, appears stated age. HEENT: normocephalic, atraumatic. Mucous membranes moist. EOMI, PERRLA, bilateral sclera anicteric, no conjunctival injection. Neck supple without JVD, lymphadenopathy, or bruit. Respiratory: clear to ascultation bilaterally. No rales/rhonic/wheezes. Cardiovascular: Regular rate and rhythm, normal S1-S2 upon ascultation. No murmurs, rubs, or clicks. PMI is nondisplaced, capillary refill less than 3 second. Abdomen: Soft, round, no pulsatile masses, nondistended and nontender. No rebound, no guarding. No CVA tenderness, no hepatosplenomegaly. Bowel sounds present to all four quadrants. No high pitch or tinkling sounds, resonant to percussion. Extremities: No cyanosis, clubbing, or edema present. Pulses are palpable 2/2. Active ROM to all four extremities. Neuro: Alert and orientated x 4. PERRLA. Cranial nerves 2-12 intact without focal deficit. Skin: Warm, dry, and intact, without rash, erythema, or lesion. Psych: pleasant, cooperative, normal speech, normal affect, no hallucinations, no dysarthia Objective Data Vital Signs Vital Signs: Vital Signs - 24 hr 01/10/25 07:41 01/10/25 08:00 01/10/25 08:00 Temperature 98.1 F Pulse Rate 49 L 47 L Respiratory Rate 14 Blood Pressure 129/81 Pulse Oximetry 100 100 Oxygen Delivery Room Air 01/10/25 10:00 01/10/25 11:25 01/10/25 12:00 Temperature 98 F Pulse Rate 58 L 51 L Respiratory Rate 14 Blood Pressure 110/65 Pulse Oximetry 100 100 Oxygen Delivery Room Air 01/10/25 12:00 01/10/25 14:00 01/10/25 15:53 Temperature 97.5 F L Pulse Rate 45 L 88 49 L Respiratory Rate 16 Blood Pressure 139/91 H Pulse Oximetry 100 Oxygen Delivery 01/10/25 16:00 01/10/25 16:00 01/10/25 18:00 Temperature Pulse Rate 59 L 56 L Respiratory Rate Blood Pressure Pulse Oximetry 100 Oxygen Delivery Room Air 01/10/25 19:40 01/10/25 20:00 01/10/25 20:53 Temperature 97.8 F Pulse Rate 63 60 Respiratory Rate 16 Blood Pressure 139/89 Pulse Oximetry 99 99 Oxygen Delivery Room Air 01/10/25 22:00 01/11/25 00:00 01/11/25 00:00 Temperature 97.8 F Pulse Rate 65 49 L 41 L Respiratory Rate 16 Blood Pressure 111/77 Pulse Oximetry 100 Oxygen Delivery 01/11/25 02:00 01/11/25 04:00 01/11/25 04:00 Temperature 97.8 F Pulse Rate 49 L 46 L 43 L Respiratory Rate 16 Blood Pressure 115/60 Pulse Oximetry 97 Oxygen Delivery 01/11/25 06:00 Temperature Pulse Rate 54 L Respiratory Rate Blood Pressure Pulse Oximetry Oxygen Delivery Intake/Output Intake/Output: Intake & Output 01/08/25 01/09/25 01/10/25 01/11/25 23:59 23:59 23:59 23:59 Intake Total 2180 1510 540 350 Balance 2180 1510 540 350 Meds/Results Medications: Active Medications Generic Name Dose Route Start Last Admin Trade Name Freq PRN Reason Stop Dose Admin Acetaminophen 650 mg 01/07/25 17:48 Acetaminophen 325 Mg Tablet PO Q4H PRN Mild Pain (1-3) or Fever Hydrocodone Bitart/Acetaminophen 1 tab 01/07/25 17:48 Hydrocodone/Acetaminophen (*Crx) 5-325 Mg Tablet PO Q4H PRN Pain Rated 4-6 Albuterol 2 puff 01/07/25 21:38 Albuterol Sulfate (*Sp) Aerosol 1 Puff INHALATION Q6HRT PRN cough Aspirin 81 mg 01/09/25 09:00 01/10/25 08:39 Aspirin 81 Mg Enteric Tablet PO Not Given QAM JOAQUIN Buspirone HCl 10 mg 01/07/25 21:38 01/10/25 20:40 Buspirone Hcl 10 Mg Tablet PO 10 mg TID PRN Administration anxiety Enoxaparin Sodium 40 mg 01/08/25 09:00 01/10/25 08:40 Enoxaparin 40 Mg/0.4 Ml Syringe SUB-Q Not Given DAILY JOAQUIN Loratadine 10 mg 01/08/25 09:00 01/10/25 08:40 Loratadine 10 Mg Tablet PO Not Given QAM JOAQUIN Losartan Potassium 25 mg 01/08/25 15:25 01/10/25 08:40 Losartan Potassium 25 Mg Tablet PO Not Given DAILY JOAQUIN Ondansetron HCl 4 mg 01/07/25 17:48 Ondansetron Inj 4 Mg/2 Ml Vial IV PUSH Q4H PRN Nausea Perflutren Lipid Microsphere 0 ml 01/08/25 07:48 Perflutren Lipid Microspheres 1.5 Ml Vial Diluted To 10 Ml Total Volume IV PUSH 01/11/25 07:48 ONCE PRN adequate visualization Protocol Rosuvastatin Calcium 10 mg 01/09/25 09:00 01/10/25 08:40 Rosuvastatin 10 Mg Tablet PO Not Given [facility] Radiology Results: ITS Impressions Chest X-Ray 01/07/25 14:28 IMPRESSION: 1: NO ACUTE CARDIOPULMONARY DISEASE. Chest CTA 01/07/25 16:10 IMPRESSION: 1. No pulmonary embolism. 2. No acute cardiopulmonary pathology. 3. Fat infiltration of the liver. 4. Fullness of the right renal pelvis. Further evaluation advised. Pharmacological Stress Test 01/10/25 15:17 IMPRESSION: 1. Normal myocardial perfusion at rest and during stress. 2. Left ventricular ejection fraction measuring >70%. Quality VTE Prophylaxis VTE prophylaxis: mechanical ordered and pharmacologic ordered Hospitalist [facility] Advance Care Plan I have confirmed that the patient's Advanced Care Plan is present, code status is documented, or surrogate decision maker is listed in patient medical record.: Yes Medication Reconciliation I have utilized all available resources to obtain, update and review the patients current medications (includes all prescriptions, OTC, herbals, cannabis, and nutritional supplements).: Yes
[2025-01-11 08:00] VITALS: BP 122/69; PULSE 49; PULSE 55; PULSE 89; RESP 18; TEMP 36.6; O2SAT 100
[2025-01-11 08:19] LABS: Hematocrit 46.3 % (37.0-47.0); Hemoglobin 15.2 g/dL (12.0-15.0); Mean Corpuscular HGB Conc 32.8 g/dl (32-36); Mean Corpuscular Hemoglobin 29.8 pg (26-34); Mean Corpuscular Volume 90.8 fl (80-100); Mean Platelet Volume 9.7 fl (7.4-10.4); Platelet Count Result 263 k/mm3 (150-375); Red Cell Distribution Width 12.5 % (11.5-14.5)
[2025-01-11 08:29] LABS: Alanine Aminotransferase 31 U/L (6-35); Albumin Level 4.8 g/dL (3.5-5.1); Alkaline Phosphatase 52 U/L (38-126); Anion Gap 9 mmol/L (4-12); Aspartate Amino Transferase 44 U/L (14-36); Bilirubin,Total 0.8 mg/dL (0.2-1.3); Blood Urea Nitrogen 16 mg/dL (7-17); Carbon Dioxide 28 mmol/L (22-30); Chloride 103 mmol/L (98-107); Estimated CRCL calculation 52 ml/min; Estimated Glomerular Filt Rate > 60; Glucose 101 mg/dL (65-110); Sodium 140 mmol/L (137-145)
[2025-01-11] MEDS: ROSUVASTATIN 10 MG TABLET PO (09:36)
[2025-01-11] MEDS: ASPIRIN 81 MG ENTERIC TABLET PO (09:36)
[2025-01-11] MEDS: LOSARTAN POTASSIUM 25 MG TABLET PO (09:36)
[2025-01-11] MEDS: LORATADINE 10 MG TABLET PO (09:37)
--- NOTE | 2025-01-11 09:44 | P.DS_ITS ---
DS: Admitting Diagnosis Discharge Date 01/11/2025 Admitting Diagnosis Atypical chest pain DS: Discharge Diagnosis Discharge Diagnosis (1) Chest pain: Code(s): R07.9 - Chest pain, unspecified Status: Acute Assessment and Plan: Now chest pain free Troponin negative, ECHO showed normal left ventricular function Reviewed stress test and myocardial perfusion Cardiology following (2) Anxiety: Code(s): F41.9 - Anxiety disorder, unspecified Status: Acute Assessment and Plan: Well controlled Continue buspirone (3) Bradycardia: Code(s): R00.1 - Bradycardia, unspecified Status: Acute Assessment and Plan: Asymptomatic Telemetry monitoring cardiology consulted ECHO normal LV function monitor on telemetry (4) Shortness of breath: Code(s): R06.02 - Shortness of breath Status: Acute Assessment and Plan: Chest x-ray shows no acute process Patient not requiring oxygen Continue home inhaler rule out ACS Plan DVT prophylaxis on Lovenox DS: Summary Hospital Course Hospital Course: 69-year-old female past medical history of anxiety, chronic diarrhea, presents with chest pain and shortness of breath. Patient went to her primary care provider today for shortness of breath with exertion found to have elevated D- dimer and was sent to the emergency room for further evaluation. Patient states that she has chest pain with strenuous activities. She denies chest pain at rest or with light to moderate activities. 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 Patient denies nausea vomiting, fever chills, low back pain or epigastric pain. Lab work in the ED CBC within normal limits,, BMP within normal limits, troponin negative chest x-ray shows no acute process. CT chest shows no pulmonary embolism, no acute process, fatty liver and fullness of the right renal pelvis. EKG shows sinus bradycardia incomplete right bundle-branch block. Patient admitted for stress test and chest pain workup. I assumed care 01/11/2025 Patient was examined at the bedside. Denies any symptoms including no chest pain or shortness of breath or dizziness. Patient underwent pharmacological stress test:1. Normal myocardial perfusion at rest and during stress. 2. Left ventricular ejection fraction measuring >70%. On the day of discharge, the patient was seen and examined. Vital signs were stable. Physical exam were stable and labs were reviewed at length. Discharge instructions, medications, and follow-up appointments were discussed with the patient at length and all day questions were answered. ER warnings were given.Advised to stop Gingko and other unknown supplements Status at Discharge Cognitive/behavioral status at discharge: Stable Time Spent with Patient Time attestation: Total time spent providing and/or coordinating discharge services: 45 minutes Exam Narrative: General: well appearing, appears stated age. HEENT: normocephalic, atraumatic. Mucous membranes moist. EOMI, PERRLA, bilateral sclera anicteric, no conjunctival injection. Neck supple without JVD, lymphadenopathy, or bruit. Respiratory: clear to ascultation bilaterally. No rales/rhonic/wheezes. Cardiovascular: Regular rate and rhythm, normal S1-S2 upon ascultation. No murmurs, rubs, or clicks. PMI is nondisplaced, capillary refill less than 3 second. Abdomen: Soft, round, no pulsatile masses, nondistended and nontender. No rebound, no guarding. No CVA tenderness, no hepatosplenomegaly. Bowel sounds present to all four quadrants. No high pitch or tinkling sounds, resonant to percussion. Extremities: No cyanosis, clubbing, or edema present. Pulses are palpable 2/2. Active ROM to all four extremities. Neuro: Alert and orientated x 4. PERRLA. Cranial nerves 2-12 intact without focal deficit. Skin: Warm, dry, and intact, without rash, erythema, or lesion. Psych: pleasant, cooperative, normal speech, normal affect, no hallucinations, no dysarthia DS: Data Data Completed and Pending Labs on day of discharge: Labs from last 24 hours 01/11/25 08:13 WBC 5.0 RBC 5.10 Hgb 15.2 H Hct 46.3 MCV 90.8 MCH 29.8 MCHC 32.8 RDW 12.5 Plt Count 263 MPV 9.7 Sodium 140 Potassium 4.0 Chloride 103 Carbon Dioxide 28 Anion Gap 9 BUN 16 Creatinine 0.89 Estim Creat Clear Calc 52 Estimated GFR > 60 Glucose 101 Calcium 10.0 Total Bilirubin 0.8 AST 44 H ALT 31 Alkaline Phosphatase 52 Total Protein 8.0 Albumin 4.8 Discharge Plan Discharge Attending physician on discharge: Shade Torres Consulting providers: Mike Bowens Discharging Clinician: Shade Torres Anticipated Discharge Date/Time: 01/11/25 09:47 Patient Disposition: Home Activity: as tolerated Diet: as tolerated Discharge Instructions: Please do lipid panel as an outpatient and discuss with PCP and if needs to continue rosuvastatin 10 mg p.o. q.d. Check blood pressure 1 to 2 times a day. Record and bring into your doctor for review. Call your doctor if your blood pressure is greater than 180/110 or less than 90/45. Walk with cane or other assist device. Take precautions to avoid falls. Rise slowly from a lying or sitting position. Pause before standing or walking. Contact your doctor or call 911 and come to the Emergency Room if you have any type of trauma, lightheadedness with standing or other worrisome symptoms. Avoid NSAIDs (ibuprofen, naproxen, Aleve). Tylenol is safe to take. Follow-up with your primary care provider in 1-2 weeks. Please call for appointment. Follow-up with Cardiology in 2-4 weeks. Please call for an appointment. Thank you for using [facility] for your health care needs. Patient Instructions: Antibiotic Form Patient Language: Vietnamese Stand Alone Forms: General Discharge Information Follow-up/Referrals: Mike Bowens MD [Physician] - Rodrigo Crocker MD [Physician] - (Shortness of breath) Discharge Medications: New rosuvastatin [Crestor] 10 mg Tablet 10 mg PO QAM Qty: 30 0RF Continued Adult 50 Plus Probiotic 4 billion cell capsule 4,000 mmu cells PO DAILY Rx Instructions: administer with a meal Calcium 600 mg PO BID Rx Instructions: 1200mg daily magnesium 320 mg PO HS fluticasone propionate 50 mcg/actuation spray,suspension 2 spray intranasal DAILY Rx Instructions: administer into each nostril vit A,C and R-triops-mberdokq [Vision Formula (with lutein)] 2 tablet PO DAILY mecobalamin (vitamin B12) 1 tablet PO DAILY cetirizine [Zyrtec] 10 mg tablet 10 mg PO DAILY buspirone 10 mg tablet 10 mg PO TID PRN (Reason: anxiety) Qty: 90 2RF Patient Comments: HS and PRN ginkgo biloba 40 mg tablet 40 mg PO DAILY Rx Instructions: give with meal/snack Vital proteins collegen powder See Rx Instructions PO .COMPLEX Rx Instructions: 3 tbsp orally; mix with 1 glass of water daily pyridoxine (vitamin B6) 100 mg Tablet 100 mg PO DAILY cholecalciferol (vitamin D3) [Vitamin D3] 25 mcg (1,000 unit) Tablet,Chewable 25 mcg PO DAILY albuterol sulfate 90 mcg/actuation HFA aerosol inhaler 2 puff INHALATION Q6H PRN (Reason: cough) Date of admission: 01/08/25 16:47 Primary Care Provider: Jin Kenyon Admitting Provider: Kumar Hayden Attending physician on admission: Kumar Hayden Condition: Stable Quality VTE Prophylaxis VTE prophylaxis: mechanical ordered and pharmacologic ordered
[2025-01-11 10:00] VITALS: PULSE 64
== END 2025-01-11 11:58 | disposition home or self-care (01) | DRG 313 ==
LOC: ANHED 14:15 → ANHIMU 20:07
PROVIDERS: Emergency Medicine; Internal Medicine; Admitting Provider Internal Medicine; Emergency Provider Emergency Medicine; PCP Internal Medicine; Visit Provider General Practice
DX: R07.89 Other chest pain (principal); F41.9 Anxiety disorder, unspecified; R00.1 Bradycardia, unspecified; K52.9 Noninfective gastroenteritis and colitis, unspecified; E78.5 Hyperlipidemia, unspecified; I10 Essential (primary) hypertension; I77.89 Other specified disorders of arteries and arterioles; I45.10 Unspecified right bundle-branch block
CPT/HCPCS: 36415; 71046; 71275; 78452; 80053; 83690; 83735; 84443; 84484; 85025; 85027; 85380; 85610; 85730; 93005; 93017; 93306; 96374; 99285; A9270; A9502; G0378; Q9967

== ENCOUNTER 2025-01-24 11:10 | Outpatient (CLI) | payer MEDICARE, OTHER, SELFPAY ==
--- NOTE | ~2025-01-24 | US_ITS ---
Renal-Bladder ultrasound Clinical History: Disorder of kidney and ureter Technique: Real-time sonographic imaging of the kidneys and urinary bladder was performed. Findings: The right kidney measures 9.3 cm in length and the left kidney measures 8.5 cm. There is no hydronephrosis or renal calculus identified. Renal cortical echogenicity is within normal limits. No renal mass lesion is identified. The urinary bladder is moderately distended at the time of this exam. No intraluminal echoes are iden tified. No abnormal wall thickening is seen. Impression: Unremarkable ultrasound of the kidneys and urinary bladder. Reviewed, dictated and finalized at location M. Impression: Unremarkable ultrasound of the kidneys and urinary bladder.
== END 2025-01-24 11:11 | disposition home or self-care (01) ==
LOC: GOSHIMG 11:10
PROVIDERS: PCP Nurse Practitioner; Visit Provider Nurse Practitioner
DX: N28.9 Disorder of kidney and ureter, unspecified (principal); N39.9 Disorder of urinary system, unspecified
CPT/HCPCS: 76775

== ENCOUNTER 2025-01-28 15:02 | Outpatient (CLI) | payer MEDICARE, OTHER, SELFPAY ==
--- OUTSIDE RECORDS SUMMARY | 2025-01-28 15:05 | XMS_ITS | Clinical Summary ---
Author Organization [place] [address] [facility] Address [address] [place] [address] Care Team Providers Care Supervisor Line Department Name Role Phone Malissa Freedman Leatha STONE Primary Care Provider + Damari Juares MD Unavailable [phone] Allergies Active Allergy Reactions Criticality Noted Date Comments Morphine Swelling Medium 12/28/2020 Medications multivitamin tablet Active cetirizine 10 mg capsule Take by mouth Active ibuprofen (ibuprofen) 200 mg tab/cap Take by mouth every 6 (six) hours as needed for pain Active Active Problems No known active problems Encounters Date Type Department Care Team Description 01/18/2025 Orders Only [facility] Cardiology [address] [place] [id number] Leena Cuba NP 01/13/2025 Orders Only [facility] Cardiology [address] [place] [address] Mike Bowens MD from Last 3 Months Surgical History Surgery Date Site/Laterality Comments SECTION [...] on file 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 Gender Identity Not on file Sexual [...] 10:19 AM CDT Height 170.2 cm (5' 7) 12/28/2020 10:19 AM CDT Body Mass Index [...] of 2) 2007 Well Visit 65+ 2022 Breast Cancer Screening-Mammogram 04/13/2025 04/13/2024, 03/18/2023, 01/28/2022, Additional history exists Influenza Vaccine (Season Ended) 2025 Procedures Procedure Name Priority Date/Time Associated Diagnosis Comments CARDIOLOGY DOCUMENT SCAN Routine 01/10/2025 11:13 AM CDT CARDIOLOGY DOCUMENT SCAN Routine 01/09/2025 9:30 AM CDT CARDIOLOGY DOCUMENT SCAN Routine 01/08/2025 9:28 AM CDT SCREENING MAMMOGRAM BILATERAL W KAYODE Schedule Routine, Read Routine (OP Routine) 04/13/2024 9:50 AM CDT Screening mammogram, encounter for from Last 3 Months or Most Recently Relevant to Health Maintenance Results * Cardiology Document Scan (01/10/2025 11:13 AM CDT) Anatomical Region Laterality Modality Other Leena Cuba NP CV CARDIAC SERVICES PROCEDUR ES Final Result * Cardiology Document Scan (01/09/2025 9:30 AM CDT) Anatomical Region Laterality Modality Other Mike Bowens MD CARDIAC SERVICES PROCE DURES Final Result * Cardiology Document Scan (01/08/2025 9:28 AM CDT) Anatomical Region Laterality Modality Other Mike Bowens MD CARDIAC SERVICES PROCE DURES Final Result * Screening Mammogram Bilateral W Kayode (04/13/2024 9:50 AM CDT) Anatomical Region Laterality Modality Breast Bilateral Mammography Narrative 04/14/2024 11:47 AM CDT Mammogram Technique: Bilateral Digital Breast Tomosynthesis, Bilateral C-view 2D Screening mammogram. Views obtained: bilateral craniocaudal and bilateral mediolateral oblique. Computer Aided Detection was performed. Mammogram Findings: The present examination has been compared to prior imaging studies performed at [facility] on 01/05/2021, at [facility] on 01/28/2022, and at [facility] on 03/18/2023. There are scattered [...] compared to prior imaging studies performed at [facility] on 01/05/2021, at [facility] on 01/28/2022, and at [facility] on 03/18/2023. There are scattered areas of fibroglandular density. There is no suspicious abnormality in either breast. Impression: There is no mammographic evidence of malignancy. Annual screening mammography is recommended. OVERALL FINAL ASSESSMENT: BI-RADS CATEGORY 1: Negative. us Self Screening Mammogram IMG MAMMO PROCEDURES Fi nal Result from Last 3 Months or Most Recently Relevant to Health Maintenance Insurance [address] HEALTHCARE HMO [facility] HMO/PPO Address: [address] [place] [address] [facility] HMO/PPO Address: [address] [address] [place] [address] [facility] HMO/PPO Address: [address] [address] [place] [address] MEDICARE MEDICARE PHYSICIANS [facility] [place] MEDICARE PHYSICIANS [facility] [place] Care Teams Supervisor Line Department Relationship Specialty Start Date End Date Malissa Freedman DO [facility] [address] [place] [address] PCP - General Family Medicine 01/22/24 Damari Juares MD [address] [facility] [address] [place] [address] Referring Physician Obstetrics and Gynecology 01/22/24
--- OUTSIDE RECORDS SUMMARY | 2025-01-28 15:05 | XMS_ITS | Referral Summary ---
Author Organization [place] [address] [facility] Address [address] [place] [address] Care Team Providers Care Bid Analyst Name Role Phone Malissa Freedman Primary Care Provider + Damari Juares MD Unavailable [phone] Encounters Date Type Department Care Team Description 01/18/2025 Orders Only [facility] Cardiology [address] [place] [phone] Leena Cuba NP 01/13/2025 Orders Only [facility] Cardiology [address] [place] [phone] Mike Bowens MD from Last 3 Months Allergies Active Allergy Reactions Criticality Noted Date [...] on file 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 Gender Identity Not on file Sexual Orientation [...] AM CDT) Anatomical Region Laterality Modality Other eLena Cuba NP CV CARDIAC SERVICES PROCEDUR ES Final Result * Cardiology Document Scan (01/09/2025 9:30 AM CDT) Anatomical Region Laterality Modality Other Mike Bowens MD CV CARDIAC SERVICES PROCE DURES Final Result * Cardiology Document Scan (01/08/2025 9:28 AM CDT) Anatomical Region Laterality Modality Other Mike Bowens MD CV CARDIAC SERVICES PROCE DURES Final Result * [...] compared to prior imaging studies performed at [facility] on 01/05/2021, at [facility] on 01/28/2022, and at [facility] on 03/18/2023. There are scattered areas [...] compared to prior imaging studies performed at [facility] on 01/05/2021, at [facility] on 01/28/2022, and at [facility] on 03/18/2023. There are scattered areas of fibroglandular density. There is no suspicious abnormality in either breast. Impression: There is no mammographic evidence of malignancy. Annual screening mammography is recommended. OVERALL FINAL ASSESSMENT: BI-RADS CATEGORY 1: Negative. us Self Screening Mammogram IMG MAMMO PROCEDURES Fi nal Result from Last 3 Months or Most Recently Relevant to Health Maintenance Insurance [facility] [facility] HMO [facility] CHOICE PLUS [facility] MEDICARE MEDICARE PHYSICIANS [employer] INS [place] MEDICARE PHYSICIANS [employer] INS [place] Care Teams Bid Analyst Relationship Specialty Start Date End Date Malissa Freedman DO [facility] [address] [place], [place] [id number] PCP - General Family Medicine 01/22/24 Damari Juares MD [address] [facility] [address] [place] [address] Referring Physician Obstetrics and Gynecology 01/22/24
--- OUTSIDE RECORDS SUMMARY | 2025-01-28 15:05 | XMS_ITS | Clinical Summary ---
Author Organization [facility] Address [address] [place] [address] Care Team Providers Care Stockroom Selector Name Role Phone Unavailable Primary Care Provider Unavailabl e Source Comments [facility],non-owned Affiliates and Associated Physician Practices is amultiple site organization consisting of ambulatory clinics and hospital sitesin [place], [place], [place] and [place]. This disclosure is being madepursuant to the Care Everywhere program and may not contain all information available regarding this patient. 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
--- NOTE | 2025-02-16 15:29 | P.PCNHOL_ITS ---
Holter/Event Monitor Holter/Event Monitor Date of procedure: 01/28/25 Holter/Event Procedure: 3-7 Day Holter Monitor Indications: Bradycardia Conclusion: 1. 7 days holter monitor on 01/28/25. 2. Underlying rhythm is sinus with intermittent ectopic atrial rhythm, HR range 33-116 bpm; average 61 bpm. HR at 33 bpm was on 01/30/25 at 3:33 am. 3. There are occasional premature supraventricular complexes. No supraventricul ar tachycardia. 4. There are rare premature ventricular complexes. No ventricular tachycardia. 5. No significant pauses greater than 3 seconds. 6. Patient reports 8 episodes of symptoms of lightheadedness, shortness of breath, anxious, 52-108 with 3 episodes with PAC's.
== END 2025-01-28 15:03 | disposition home or self-care (01) ==
PROVIDERS: PCP Nurse Practitioner; Visit Provider Nurse Practitioner
DX: R06.00 Dyspnea, unspecified (principal); R00.1 Bradycardia, unspecified
CPT/HCPCS: 93242

== ENCOUNTER 2025-04-20 13:07 | Outpatient (CLI) | payer MEDICARE, OTHER, SELFPAY ==
--- NOTE | ~2025-04-20 | DEXA_ITS ---
Bone Density Report Name: SCOTT PICHARDO Age: 70 Sex: Female Ethnicity: White Date of : 1955 Indication: osteopenia; height loss; inflammatory bowel disease; prior fracture; Referring Provider: MALATHI MACK Study: Bone densitometry was performed. Exam Date: April 20, 2025 Accession number: [id number] Bone Density: Region BMD T-score Z-score Classification AP Spine(L1-L4) 0.824 -2.0 0.0 Osteopenia Femoral Neck (Left) 0.594 -2.3 -0.6 Osteopenia Total Hip (Left) 0.713 -1.9 -0.5 Osteopenia Femoral Neck (Right) 0.599 -2.3 -0.6 Osteopenia Total Hip (Right) 0.738 -1.7 -0.3 Osteopenia Total Hip Mean 0.725 -1.8 -0.4 Osteopenia World Health Organization criteria for BMD impression classify patients as: Normal (T-score at or above -1.0), Osteopenia (T-score between -1.0 and -2.5), or Osteoporosis (T-score at or below -2.5). 10-year Fracture Risk(1): Major Osteoporotic Fracture 19% Hip Fracture 3.9% Reported Risk Factors: [place] (), Neck BMD=0.594, BMI=22.8, previous fracture (1) FRAX(R) Version 3.08. Fracture probability calculated for an untreated patient. Fracture probability may be lower if the patient has received treatment. Previous Exams: Region Exam Age BMD T-score BMD Change BMD Change Date g/cm2 vs Baseline vs Previous AP Spine (L1-L4) 04/20/2025 70 0.824 -2.0 -0.021 (-2.5%) 0.026 (3.3%)* 04/15/2023 68 0.798 -2.3 -0.047 (-5.6%) -0.047 (-5.6%) 05/10/2020 65 0.845 -1.8 Total Hip(Left) 04/20/2025 70 0.713 -1.9 0.005 (0.8%) 0.067 (10.3%)* 04/15/2023 68 0.646 -2.4 -0.061 (-8.6%) -0.061 (-8.6%) 05/10/2020 65 0.707 -1.9 Total Hip(Right) 04/20/2025 70 0.738 -1.7 0.016 (2.2%) 0.036 (5.1%)* 04/15/2023 68 0.702 -2.0 -0.020 (-2.8%) -0.020 (-2.8%) 05/10/2020 65 0.721 -1.8 *Denotes significance at 95% confidence level, LSC for AP Spine = 0.022 g/cm2, LSC for Total Hip = 0.027 g/cm2 Clinical Information Provided by Patient: Has had a low trauma fracture Has used the following medications: Vitamin D, Calcium, BUSPERONE, SUPPLEMENTS Has the following medical conditions: Inflammatory bowel diseases, ANXIETY/INSOMNIA Patient maximum height was 67 Menopause Age: 50 Drinks caffeinated beverages Onset of menses at age 12 Number of children 2 Impression: The patient has low bone mass, based on the Left Femoral Neck T-score. The patient has an estimated ten-year risk of hip fracture of 3.9% and an estimated ten-year risk of major fracture of 19%, based on the WHO FRAX algorithm. The patient has risk factors, including: previous fracture. No significant bone loss was observed. Discussion: BONE DENSITY IS LOW AT ONE OR MORE SKELETAL SITES. THE PATIENT'S BMD AND CLINICAL RISK FACTORS CONTRIBUTE TO THIS PATIENT'S INCREASED RISK OF FRACTURE. This patient's lowest T-score is low at one or more skeletal sites. It meets the World Health Organization's (WHO) criteria for ?low bone mass? (T-score between -1.0 and -2.5). The patient's 10-year risk of hip fracture as calculated by FRAX exceeds the threshold where pharmacological therapy is recommended by the National Osteoporosis Foundation (NOF). However, all treatment decisions require clinical judgment and consideration of individual patient factors, including patient preferences, comorbidities, previous drug use, risk factors not captured in the FRAX model (e.g., frailty, falls, vitamin D deficiency, increased bone turnover, interval significant decline in bone density) and possible under or overestimation of fracture risk by FRAX. The patient should follow a healthful lifestyle (good nutrition with adequate calcium and vitamin D, and appropriate weight-bearing exercise). Follow-Up: Consider a repeat BMD and Vertebral Fracture Assessment (VFA) exam in 2 years or sooner if medically necessary, to reassess this patient's status. Reported by: VIKTORIYA on 04/20/2025 1:44:00 PM. Reviewed, dictated and finalized at location A.
--- OUTSIDE RECORDS SUMMARY | 2025-04-20 13:20 | XMS_ITS | Clinical Summary ---
Author Organization [facility] Address [address] [place] [address] Care Team Providers Care Television Script Writer Name Role Phone Unavailable Primary Care Provider Unavailabl e Source Comments [facility] Dress Code,non-owned Affiliates and Associated Physician Practices is amultiple site organization consisting of ambulatory clinics and hospital sitesin [place], [place], [place] and [place]. This disclosure is being madepursuant to the Care Everywhere program and may not contain all information available regarding this patient. 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
--- OUTSIDE RECORDS SUMMARY | 2025-04-20 13:20 | XMS_ITS | Clinical Summary ---
Author Organization [place] [address] [facility] Address [address] [place] [address] Care Team Providers Care Telecine Operator Name Role Phone FreedmanMalissa lira Leatha STONE Primary Care Provider + Damari Juares MD Unavailable [phone] Allergies Active Allergy Reactions Criticality Noted Date Comments Morphine Swelling Medium 12/28/2020 Medications multivitamin tablet Active cetirizine 10 mg capsule Take by mouth Active ibuprofen (ibuprofen) 200 mg tab/cap Take by mouth every 6 (six) hours as needed for pain Active Active Problems No known active problems Encounters Date Type Department Care Team Description 01/18/2025 Orders Only [facility] Cardiology [address] [place] [address] Leena Cuba NP from Last 3 Months Surgical History Surgery [...] on file Legal Sex Female 11:18 PM CARE ANALYST Gender Identity Not on file Sexual [...] 03/18/2023, 01/28/2022, Additional history exists Influenza Vaccine (#1) 2025 Procedures Procedure Name Priority Date/Time Associated [...] compared to prior imaging studies performed at [facility] on 01/05/2021, at [facility] on 01/28/2022, and at [facility] on 03/18/2023. There are [...] compared to prior imaging studies performed at [facility] on 01/05/2021, at [facility] on 01/28/2022, and at [facility] [...] Most Recently Relevant to Health Maintenance [facility] CHOICE PLUS [facility] MEDICARE MEDIC[employer] Member Subscriber Plan / Payer (Ef fective 2022-) Name:Lea Pichardo Relation to Subscriber:Self Name:Lea Pichardo Payer ID:[id number] Group ID:Not on file Type:Dr. Scribbles Address: [facility] [address] [place], [place] MEDICARE [employer] Care Teams Telecine Operator Relationship Specialty Start Date End Date Malissa Freedman DO [address] [place] [address] PCP - General Family Medicine 01/22/24 Damari Juares MD [address] [facility] [address] [place] [address] Referring Physician Obstetrics and Gynecology 01/22/24
--- OUTSIDE RECORDS SUMMARY | 2025-04-20 13:20 | XMS_ITS | Encounter Summary ---
Author Organization [facility] Healthcare Address [address] [place] [address] Care Team Providers Care Enrichment Teacher Name Role Phone FreedmanMalissa lira Leatha STONE Primary Care Provider + Damari Juares MD Unavailable [phone] Encounter Details Date Type Department Care Team (Late st Contact Info) Description 01/12/2025 Orders Only [facility] Health Information Management [address] [place] [address] Scanning, Provider Social History Tobacco Use Types Packs/Day Years Used Date Smoking Tobacco: Never Comments Unknown Sex and Gender Information Value Date Recorded Sex Assigned at Not on file 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 Gender Identity Not on file Sexual Orientation Not on file documented as of this encounter Plan of Treatment Not on file documented as of this encounter Procedures Procedure Name Priority Date/Time Associated Diagnosis Comments SCAN - RADIOLOGY/IMAGING 01/12/2025 9:28 PM CDT CARDIOLOGY DOCUMENT SCAN 01/12/2025 9:28 PM CDT documented in this encounter Results * SCAN - RADIOLOGY/IMAGING (01/12/2025 9:28 PM CDT) Anatomical Region Laterality Modality Other us Provider Scanning Final Result * Cardiology Document Scan (01/12/2025 9:28 PM CDT) Anatomical Region Laterality Modality Other us Provider Scanning CV CARDIAC SERVICES PROCEDURES Final Result documented in this encounter Visit Diagnoses Not on filedocumented in this encounter Care Teams Enrichment Teacher Relationship Specialty Start Date End Date Malissa Freedman DO [facility] [address] [place], [place] [id number] PCP - General Family Medicine 01/22/24 Damari Juares MD [address] [place] [address] Referring Physician Obstetrics and Gynecology 01/22/24 documented as of this encounter
== END 2025-04-20 13:08 | disposition home or self-care (01) ==
LOC: ANHFOHIMG 13:09
PROVIDERS: PCP Nurse Practitioner Obstetrics & Gynecology; Visit Provider Internal Medicine
DX: M81.0 Age-related osteoporosis without current pathological fracture (principal); M85.88 Other specified disorders of bone density and structure, other site; M85.852 Other specified disorders of bone density and structure, left thigh; M85.851 Other specified disorders of bone density and structure, right thigh
CPT/HCPCS: 77080

== ENCOUNTER 2025-04-23 07:40 | Outpatient (CLI) | payer MEDICARE, OTHER, SELFPAY ==
--- OUTSIDE RECORDS SUMMARY | 2025-04-23 07:45 | XMS_ITS | Encounter Summary ---
Author Organization [facility] Healthcare Address [address] [place] [address] Care Team Providers Care Wheel Braider Name Role Phone FreedmanMalissa lira Leatha STONE Primary Care Provider + Damari Juares MD Unavailable [phone] Encounter Details Date Type Department Care Team (Late st Contact Info) Description 01/12/2025 Orders Only [facility] Health Information Management [address] [place] [address] Scanning, Provider Social History Tobacco Use Types Packs/Day Years Used Date Smoking Tobacco: Never Comments Unknown Sex and Gender Information Value Date Recorded Sex Assigned at Not on file 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
--- OUTSIDE RECORDS SUMMARY | 2025-04-23 07:45 | XMS_ITS | Encounter Summary ---
Author Organization [facility] Address [address] [place] [address] Care Team Providers Care Edger Runner Name Role Phone Jni Kenyon Primary Care Provider [phone] Encounter Details Date Type Department Care Team (Late st Contact Info) Description 02/10/2025 Abstract [place] [facility] [address] [address] Francy Ruiz MA Social History Tobacco Use Types Packs/Day Years Used Date Smoking Tobacco: Never Assessed Sex and Gender Information Value Date Recorded Sex Assigned at Male 11/04/2024 2:41 PM CDT Legal Sex Female 6:27 PM CDT Gender Identity Not on file Sexual Orientation Not on file documented as of this encounter Plan of Treatment Upcoming Encounters Date Type Department Care Team (Late st Contact Info) Description 02/23/2026 9:30 AM CDT Office Visit [place] [facility] [address] [facility] [place] [address] Lalit Shah MD [facility]. [address] [address] documented as of this encounter Procedures Procedure Name Priority Date/Time Associated Diagnosis Comments COMPREHENSIVE METABOLIC PANEL Routine 01/11/2025 LIPID PANEL Routine 01/11/2025 CBC, MANUAL DIFF Routine 01/11/2025 THYROID STIM HORMONE TSH Routine 01/11/2025 MAGNESIUM Routine 01/11/2025 documented in this encounter Results * COMPREHENSIVE METABOLIC PANEL (01/11/2025) SODIUM S/P/B 140 GLUCOSE 101 mg/dL AST 44 BUN 16 CREATININE S/P/B 0.89 0.5 - 1.0 CALCIUM S/P/B 10.0 POTASSIUM S/P/B 4.0 CHLORIDE S/P/B 103 ALT 31 GFR ESTIMATE 59 us Default History Genericprovider LABORATORY Final Result * LIPID PANEL (01/11/2025) CHOLESTEROL 223 TRIGLYCERIDES 59 HDL 89 LDL (CALCULATED) 119 NON HDL CHOLESTEROL 134 us Default History Genericprovider LABORATORY Final Result * CBC, MANUAL DIFF (01/11/2025) WBC 5.0 HGB 15.2 HCT 46.3 PLT 263 us Default History Genericprovider LABORATORY Final Result * THYROID STIM HORMONE TSH (01/11/2025) TSH 2.130 us Default History Genericprovider LABORATORY Final Result * MAGNESIUM (01/11/2025) MAGNESIUM 2.0 us Default History Genericprovider LABORATORY Final Result documented in this encounter Visit Diagnoses Not on filedocumented in this encounter Care Teams Edger Runner Relationship Specialty Start Date End Date Jin Kenyon DO [address] [place] [phone] PCP - General INTERNAL MEDICINE 01/14/25 documented as of this encounter
--- OUTSIDE RECORDS SUMMARY | 2025-04-23 07:45 | XMS_ITS | Encounter Summary ---
Author Organization [facility] Address [address] [place] [address] Care Team Providers Care Communications Supervisor Name Role Phone Jin Kenyon DO Primary Care Provider [phone] Encounter Details Date Type Department Care Team (Late st Contact Info) Description 03/15/2025 MyChart Message Enc [place] [facility] [address] [place] [phone] Lalit Shah MD [address] [address] Follow up Social History Tobacco Use Types Packs/Day Years Used Date Smoking Tobacco: Never Smokeless Tobacco: Never Alcohol Use Standard Drinks/Week Comments Not Currently 7 (1 standard drink = 0.6 oz pur e alcohol) 1 DRINK DAILY Sex and Gender Information Value Date Recorded Sex Assigned at Male 11/04/2024 2:41 PM CDT Legal Sex Female 6:27 PM CDT Gender Identity Not on file Sexual Orientation Not on file documented as of this encounter Progress Notes * ROSY Nicholson - 03/15/2025 1:00 PM CDT PG - see message. You saw her last. Do you want PFTs done? documented in this encounter Plan of Treatment Upcoming Encounters Date Type Department Care Team (Late Contact Info) Description 02/23/2026 9:30 AM CDT Office [facility] [place] [facility] [address] [facility] [place] [address] Lalit Shah MD [facility]. [facility] [address] [place] [address] documented as of this encounter Visit Diagnoses Not on filedocumented in this encounter Care Teams Communications Supervisor Relationship Specialty Start Date End Date Jin Kenyon DO [address] [place] [phone] PCP - General INTERNAL MEDICINE 01/14/25 documented as of this encounter
--- OUTSIDE RECORDS SUMMARY | 2025-04-23 07:45 | XMS_ITS | Clinical Summary ---
Author Organization [facility] Address [address] [place] [address] Care Team Providers Care Crate Builder Name Role Phone Jin Kenyon DO Primary Care Provider Allergies Active Allergy Reactions Criticality Noted Date Comments Morphine Swelling Medium 12/28/2020 Medications busPIRone (BUSPAR) 10 MG tablet Take 1 tablet (10 mg total) by mouth 3 (three) times daily as needed. FOR ANXIETY 09/06/2024 Active albuterol sulfate HFA 108 (90 Base) MCG/ACT inhaler Inhale 2 puffs into the lungs every 4 (four) hours as needed. 02/24/2024 Active Active Problems No known active problems Encounters Date Type Department Care Team Description 03/15/2025 MyChart Message Enc [facility] [facility] [place] [phone] [place] [address] Lalit Shah MD Follow up 02/17/2025 11:15 AM CDT Office Visit [facility] [address] [address] Lalit Shah MD Consult (Shortness of breath) 02/17/2025 Travel 02/10/2025 Abstract [facility] [facility], [place] [address] [place] [address] Francy Ruiz MA 2025 Orders Only [facility] [facility], [facility] [address] [place] [address] Marina Bartholomew MA 01/28/2025 Scan [facility] [facility], [facility] [address] [place] [address] Scanned, Doc Pccl 01/24/2025 Scan [facility] [facility], [facility] [address] [place] [address] Scanned, Doc Pccl from Last 3 Months Immunizations Immunization Administration Dates Next Due Pneumococcal (Prevnar 20) 04/13/2022 Shingrix 09/08/2022,04/13/2022 Tdap (Generic) 05/21/2022 Family History Medical History Relation Comments Alcohol Abuse Brother Drug Abuse Brother Alcohol Abuse Father Cancer Father Arthritis Mother CHF Mother Diabetes Mother Hypertension Mother Cancer Paternal Grandmother Alcohol Abuse Sister Relation Status Comments Brother Alive Father Alive Mother Alive Paternal Grandmother Alive Sister Alive Social History Tobacco Use Types Packs/Day Years Used Date Smoking Tobacco: Never Smokeless Tobacco: Never Tobacco Cessation:Counseling Given: Not Answered Alcohol Use Standard Drinks/Week Comments Not Currently 7 (1 standard drink = 0.6 oz pur e alcohol) 1 DRINK DAILY Sex and Gender Information Value Date Recorded Sex Assigned at Male 11/04/2024 2:41 PM CDT Legal Sex Female 6:27 PM CDT Gender Identity Not on file Sexual Orientation Not on file Last Filed Vital Signs Vital Sign Reading Time Taken Comments Blood Pressure 130/88 02/17/2025 11:07 AM CDT Pulse 61 02/17/2025 11:07 AM CDT Temperature - - Respiratory Rate - - Oxygen Saturation - - Inhaled Oxygen Concentration - - Weight 64.4 kg (142 lb) 02/17/2025 11:07 AM CDT Height 170.2 cm (5' 7) 02/17/2025 11:07 AM CDT Body Mass Index 22.24 02/17/2025 11:07 AM CDT Plan of Treatment Upcoming Encounters Date Type Department Care Team (Late st Contact Info) Description 02/23/2026 9:30 AM CDT Office Visit [place] [facility] [address] [place] [address] Lalit Shah MD [facility]. [address] [address] Health Maintenance Due Date Last Done Comments Colorectal Cancer Screening Colonoscopy (10 Years) 1955 Hepatitis C 1975 RSV Immunization or 60+ Years (1 - Risk 60-74 years 1-dose series) 2017 Annual Medicare Wellness Visit 2022 COVID-19 Vaccine (4 - 2023-2 5 season) 2024 07/05/2021, 11/17/2020, 10/20/2020 DTaP, Tdap and Td Vaccines ( 2 [...] Procedure Name Priority Date/Time Associated Diagnosis Comments HOLTER DOCUMENT (SCAN ORDER) Routine 01/28/2025 IMAGE GENERIC Routine 01/24/2025 from Last 3 Months Results * HOLTER DOCUMENT (01/28/2025) us Doc Pccl Scanned SCANNING Final Result [facility] ONBASE * IMAGE STUDY (01/24/2025) Anatomical Region Laterality Modality Other us Doc Pccl Scanned SCANNING Final Result from Last 3 Months Insurance MEDICARE [employer] Care Teams Crate Builder Relationship Specialty Start Date End Date Jin Kenyon DO [address] [place] [phone] PCP - General INTERNAL MEDICINE 01/14/25
--- OUTSIDE RECORDS SUMMARY | 2025-04-23 07:45 | XMS_ITS | Clinical Summary ---
Author Organization [facility] Address [address] [place] [address] Care Team Providers Care Patrol Driver Name Role Phone Unavailable Primary Care Provider Unavailabl e Source Comments [facility] [employer],non-owned Affiliates and Associated Physician Practices is amultiple site organization consisting of ambulatory clinics and hospital sitesin [place], [place], [place] and [place]. This disclosure is being madepursuant to the Care Everywhere program and may not contain all information available regarding this patient. Last updated 18.[facility] Social History Tobacco Use Types Packs/Day Years Used Date Smoking Tobacco: Never Assessed Comments Unknown Sex and Gender Information Value Date Recorded Sex Assigned at Not on file Legal Sex Female 6:16 AM HANGERSMITH Gender Identity Not on file Sexual Orientation [...]
--- OUTSIDE RECORDS SUMMARY | 2025-04-23 07:45 | XMS_ITS | Clinical Summary ---
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 There are scattered areas of fibroglandular density. There is no suspicious abnormality in either breast. Impression: There is no mammographic evidence of malignancy. Annual screening mammography is recommended. OVERALL FINAL ASSESSMENT: BI-RADS CATEGORY 1: Negative. us Self Screening Mammogram IMG MAMMO PROCEDURES Fi nal Result from Last 3 Months or Most Recently Relevant to Health Maintenance Insurance [address] [email or web address] BY [facility] HMO/PPO Address: [facility] [address] [place] [address] [facility] CHOICE [facility] HMO/PPO Address: [address] [address] [place] [address] [facility] HMO/PPO Address: [address] [address] [place] [address] MEDICARE MEDICARE [employer] Member Subscriber Plan / Payer (Ef fective 2022-Present) Name:Lea Pichardo Relation to Subscriber:Self Name:Lea Pichardo Payer ID:[id number] Group ID:Not on file Type:[employer] Address: [address] INDIR[place] Mishra Care Teams Technical Sales Consultant Relationship Specialty Start Date End Date Malissa Freedman DO [address] [place] [address] [address] [place], [place] [phone] PCP - General Family Medicine 01/22/24 Damari Juares MD [address] [facility] [address] [place] [address] Referring Physician Obstetrics and Gynecology 01/22/24
[2025-04-23 09:17] LABS: Alanine Aminotransferase 29 U/L (6-35); Albumin Level 4.3 g/dL (3.5-5.1); Alkaline Phosphatase 56 U/L (38-126); Anion Gap 7 mmol/L (4-12); Aspartate Amino Transferase 48 U/L (14-36); Bilirubin,Total 1.0 mg/dL (0.2-1.3); Blood Urea Nitrogen 23 mg/dL (7-17); Calcium 9.9 mg/dL (8.4-10.2); Carbon Dioxide 28 mmol/L (22-30); Chloride 102 mmol/L (98-107); Estimated Glomerular Filt Rate 57; Glucose 82 mg/dL (65-110); Potassium 4.1 mmol/L (3.4-5.0); Sodium 137 mmol/L (137-145); Total Protein 7.3 g/dL (6.3-8.2)
== END 2025-04-23 07:41 | disposition home or self-care (01) ==
LOC: ANHLAB 07:43
PROVIDERS: PCP Internal Medicine; Visit Provider Internal Medicine
DX: M85.80 Other specified disorders of bone density and structure, unspecified site (principal)
CPT/HCPCS: 36415; 80053; 82306